=== PATIENT | male | born 1945 | race Caucasian/White ===

== ENCOUNTER 2016-10-21 08:53 | Outpatient (CLI) | payer MEDICARE, OTHER ==
--- NOTE | 2016-10-21 14:29 | MRI Report ---
EXAM: LEFT KNEE MRI WITHOUT CONTRAST EXAM DATE: 10/21/2016 10:54 AM. CLINICAL HISTORY: Left knee pain for 6-8 months COMPARISON: 02/16/2012 radiograph. TECHNIQUE: Multiplanar, multisequence T1-weighted and fluid-sensitive sequences of the knee without c ontrast. Other: None. FINDINGS: Bones: No fractures. Periarticular marrow edema in the trochlea is reactive. Mild tricompartmental os teophytes are seen.. Articular Cartilage: Severe cartilage loss is seen at the medial patellar facet. Focal cartilage demo nstrates severe thinning and surface irregularity. There is severe cartilage loss in the weightbearin g surfaces of the medial compartment. Moderate cartilage thinning is in the lateral compartment. Medial Meniscus: The posterior horn of the medial meniscus is small in size and quite deficient near the posterior root. There is evidence of a high-grade radial tear at that location. Lateral Meniscus: The lateral meniscus is intact. Cruciate Ligaments: The anterior cruciate ligament demonstrates intercondylar notch cyst formation. T he posterior cruciate ligament is intact. Collateral Ligaments: The medial collateral and lateral collateral ligamentous structures are intact. Tendons: The quadriceps, patellar, semimembranosus, and popliteus tendons are unremarkable. Musculature: No edema or fatty atrophy. Other: No effusion. A moderate-sized ruptured popliteal cyst is present. Two loose bodies are in the anterior joint space and both have signal intensity suggesting they may have arisen from a meniscal o rigin. They can be seen on series 501/10 and series 501/15. The largest measures 8 mm. The medial an d lateral retinacula are intact. Prepatellar subcutaneous edema seen.. IMPRESSION: 1. Moderate osteoarthritis. 2. Tearing of the posterior horn of the medial meniscus. 3. Intercondylar notch cyst formation in the anterior cruciate ligament. 4. Loose bodies in the anterior joint space. RADI MUSCULOSKELETAL RADIOLOGY SECTION Referring Provider Line: [phone] SITE ID: [id number]
== END 2016-10-21 08:54 | disposition home or self-care (01) ==
LOC: DI 08:53
PROVIDERS: ATTEND Family Medicine
DX: M17.12 Unilateral primary osteoarthritis, left knee (principal); S83.242A Other tear of medial meniscus, current injury, left knee, initial encounter

== ENCOUNTER 2017-04-06 11:19 | Outpatient (CLI) | payer MEDICARE, OTHER ==
--- NOTE | 2017-04-06 12:53 | XRAY Report ---
TWO-VIEW CHEST: 04/06/2017 CLINICAL INDICATION: Night sweats. COMPARISON: 03/18/2014 FINDINGS: Frontal and lateral views of the chest demonstrate a normal cardiac silhouette. The lungs are hyperinflated, compatible with COPD. No focal consolidation or pulmonary nodule is seen. No ef fusion or pneumothorax is present. IMPRESSION: COPD. NO EVIDENCE OF ACUTE CARDIOPULMONARY DISEASE. JOB #: [id number] EXT JOB #:[id number]
== END 2017-04-06 11:20 | disposition home or self-care (01) ==
LOC: DI 11:19
PROVIDERS: ATTEND Family Medicine
DX: J44.9 Chronic obstructive pulmonary disease, unspecified (principal)
CPT/HCPCS: 71020

== ENCOUNTER 2017-04-12 10:35 | Outpatient (CLI) | payer MEDICARE, OTHER ==
--- NOTE | 2017-04-12 12:49 | XRAY Report ---
RIGHT HIP AND PELVIS: 04/12/2017 CLINICAL INDICATION: Right hip pain. FINDINGS: Frontal view of the hips and pelvis and frogleg lateral view of the right hip demonstrate moderate osteoarthritis. There is no evidence of acute fracture or dislocation. No radiopaque forei gn body is seen in the soft tissues. IMPRESSION: MODERATE OSTEOARTHRITIS. JOB #: [id number] EXT JOB #:[id number]
== END 2017-04-12 10:36 | disposition home or self-care (01) ==
LOC: DI 10:35
PROVIDERS: ATTEND Physician Assistant Medical
DX: M16.11 Unilateral primary osteoarthritis, right hip (principal)

== ENCOUNTER 2017-06-21 08:35 | Outpatient (CLI) | payer MEDICARE, OTHER ==
[2017-06-21 12:31] LABS: BASOPHILS % (AUTO) 0.5 %; EOSINOPHILS # (AUTO) 0.1 10^3/uL (0.0-0.7); EOSINOPHILS % (AUTO) 1.8 %; HGB - HEMOGLOBIN 14.1 g/dL (14.0-18.0); LYMPHOCYTES % (AUTO) 21.6 %; MEAN CORPUSCULAR HEMOGLOBIN 35.2 pg (27.0-31.0); MEAN CORPUSCULAR HGB CONC 35.2 g/dL (32.0-36.0); MEAN PLATELET VOLUME 6.9 fL (7.4-11.4); MONOCYTES # (AUTO) 0.5 10^3/uL (0.0-1.0); MONOCYTES % (AUTO) 10.5 %; NEUTROPHILS # (AUTO) 3.1 10^3/uL (1.5-6.6); NEUTROPHILS % (AUTO) 65.6 %; PLT - PLATELET COUNT 219 10^3/uL (130-450); RED BLOOD COUNT 3.99 10^6/uL (4.70-6.10); RED CELL DISTRIBUTION WIDTH 13.3 % (12.0-15.0); WHITE BLOOD COUNT 4.7 x10^3/uL (4.8-10.8)
[2017-06-21 13:29] LABS: ALBUMIN 4.1 g/dL (3.2-5.5); ALBUMIN/GLOBULIN RATIO 1.5 (1.0-2.2); BILIRUBIN,TOTAL 0.6 mg/dL (0.2-1.0); CALCIUM 8.7 mg/dL (8.5-10.3); CREATININE 0.7 mg/dL (0.6-1.2); TOTAL PROTEIN 6.8 g/dL (6.7-8.2)
== END 2017-06-21 08:36 | disposition home or self-care (01) ==
LOC: LAB.WCP 08:35
PROVIDERS: ATTEND Family Medicine
DX: Z00.00 Encounter for general adult medical examination without abnormal findings (principal); M16.11 Unilateral primary osteoarthritis, right hip; I10 Essential (primary) hypertension; R73.9 Hyperglycemia, unspecified
CPT/HCPCS: 36415; 80053; 85025; 87640

== ENCOUNTER 2017-07-17 10:53 | Outpatient (CLI) | payer MEDICARE, OTHER ==
--- NOTE | 2017-07-18 15:12 | OPERATIVE REPORT ---
DATE OF SERVICE: 07/18/2017 Physician: Sayda Ulloa MD PREOPERATIVE DIAGNOSIS: Right hip osteoarthritis. POSTOPERATIVE DIAGNOSIS: Right hip osteoarthritis. PROCEDURE PERFORMED: Anterior approach right total hip arthroplasty. OPERATING SURGEON: Sayda Ulloa MD ANESTHESIA: General by Katelyn Carlos INDICATIONS FOR SURGERY: The patient is a 71-year-old male with progressive severe osteoarthritis of his right hip, who has failed a nonoperative course of management including injections, limitation of activity, anti-inflammatory medications with minimal relief and he now desires total hip arthroplasty. DESCRIPTION OF OPERATIVE PROCEDURE: The patient was admitted. He was taken to the operating room and placed supine on the OR table and received a general anesthetic. His hips were properly prepped and draped in standard fashion. Surgical timeout was held. After this, an anterior approach was made to the right hip with an 8 cm incision directed lateral to the anterior superior iliac spine towards the femur. This incision was taken down through skin and subcutaneous tissue exposing fascia overlying the tensor fascia. This interval was developed medial to the tensor muscle and developed directly down to the femoral capsule. The rectus femoris was reflected off the acetabulum and the capsule exposed and a capsulectomy performed from the anterior femur. Retractors were then positioned on the intracapsular aspect of the hip allowing exposure of the femoral neck for a napkin ring osteotomy to remove a segment and allow direct exposure of the femoral head, which was removed with a corkscrew. The cup was then exposed with retractors and reaming performed up to accommodate a 54 mm cup size. This cup was inserted into the acetabulum in a proper orientation for abduction and version and was well fixed even without screw fixation. The poly was inserted, standard vitamin E poly, followed by preparation of the femur by appropriate releases to drive the femur anteriorly, a re-resection of the proximal femur to a more anatomic angle, and then once exposure was gained with the foot of the bed lowered and retractors in place, a canal finder was used followed by serial broaching up to accommodate a size 15 Taperloc stem. Trial reduction was performed on this and a +6 neck length restored limb lengths, stability, and muscle tension. The trial components were removed. The femur was irrigated and flushed. The implantable size 15 Taperloc stem standard was inserted, followed by a +6 mm head size 40 and reduced into the cup, once again proving to be stable and showing equalization of limb lengths. The hip was then flushed thoroughly with irrigation including dilute Betadine solution, followed by a recleansing with saline. Deep infiltration was performed with a cocktail of pain medication followed by closure with #1 Vicryl in the fascia over the tensor followed by 0 and 2-0 Vicryl subcutaneous and 4-0 Monocryl in skin. Sterile dressings were applied. The patient tolerated this well and was then transferred to hospital bed and taken to the recovery room in stable condition. ESTIMATED BLOOD LOSS: 250 mL COMPLICATIONS: None. SPONGE AND NEEDLE COUNTS: Correct. IMPLANTS USED IN SURGERY: A size 15 standard Taperloc stem, a 40 mm +6 head and neck, and a G7 acetabular cup size 54 with a vitamin E infused high density polyethylene liner. TD: 07/18/2017 15:12
== END 2017-07-17 10:54 | disposition home or self-care (01) ==
LOC: LAB 10:53
PROVIDERS: ATTEND Orthopaedic Surgery
DX: Z01.812 Encounter for preprocedural laboratory examination (principal); M16.11 Unilateral primary osteoarthritis, right hip
CPT/HCPCS: 36415; 86850; 86900; 86901

== ENCOUNTER 2017-07-18 07:30 | Inpatient (IN) | payer MEDICARE, OTHER ==
[2017-07-18] MEDS ORDERED: ceFAZolin 2 GM/50 ML 2 GM/50 ML BAG IV ONE (09:42)
[2017-07-18] MEDS ORDERED: LACTATED RINGERS 1,000 ML IV ONE (10:58)
[2017-07-18] MEDS ORDERED: KETOROLAC 15 MG/ML VIAL IVP ONE (13:04)
[2017-07-18] MEDS ORDERED: ROPIVACAINE 0.2% PF 20 ML AMPULE SUBQ ONE (13:04)
[2017-07-18] MEDS ORDERED: MORPHINE PF 5 MG/10 ML AMP SUBQ ONE (13:04)
[2017-07-18] MEDS ORDERED: EPINEPHrine 1 MG/ML AMP IVP ONE (13:06)
[2017-07-18] MEDS ORDERED: LIDOCAINE 1%-EPI 1:100000 20 ML MDV SUBQ ONE (13:06)
[2017-07-18] MEDS ORDERED: BUPIVACAINE 0.25% PF 30 ML VIAL SUBQ ONE ×3 (13:08)
[2017-07-18] MEDS ORDERED: LIDOCAINE MPF 1%-EPI 1:200000 30 ML VIAL SUBQ ONE ×2 (13:08)
--- NOTE | 2017-07-18 14:12 | PROVIDER PROGRESS NOTE ---
Subjective - General Admit Date: 07/18/17 Procedure Date: 07/18/17 Post Op Days: 0 Objective - Patient Data Vital Signs: Vital Signs x48h Temp Pulse Resp BP Pulse Ox 07/18/17 10:36 36.4 C L 60 16 143/88 H 96 Weight: Weight 07/16/17 07/17/17 07/18/17 23:59 23:59 23:59 Weight (kg) 106 kg Impression/Plan - Problem List Problem List: This patient is expected to be hospitalized less than 96 Hours.
--- NOTE | 2017-07-18 14:12 | OPERATIVE REPORT ---
Operative Report - General Admit Date: 07/18/17 Procedure Date: 07/18/17 Planned Procedure: right hip DJD Pre-Op Diagnosis: same Procedure Performed: right CHRISTOPHER Post Op Diagnosis: same - Procedure Note Primary Surgeon: fidel Anesthesia Provider: Terrance Anesthesia Technique: General ET tube Estimated Blood Loss (mL): 300
[2017-07-18] MEDS ORDERED: PROCHLORPERAZINE 10 MG/2 ML VIAL IVP PRN (14:14)
[2017-07-18] MEDS ORDERED: ACETAMINOPHEN 325 MG TABLET PO PRN (14:14)
[2017-07-18] MEDS ORDERED: SENNA 8.6 MG TABLET PO PRN (14:14)
[2017-07-18] MEDS ORDERED: ACETAMINOPHEN 1,000 MG/100 ML 100 ML IV PRN (14:14)
[2017-07-18] MEDS ORDERED: SODIUM CHLORIDE FLUSH 0.9% 10 ML SYRINGE IVP PRN (14:14)
[2017-07-18] MEDS ORDERED: ONDANSETRON 4 MG/2 ML VIAL IVP PRN (14:14)
[2017-07-18] MEDS ORDERED: BISACODYL 10 MG SUPP PR PRN (14:14)
[2017-07-18] MEDS: HYDROmorphone 1 MG/ML SYRINGE ONE ×4 (14:15→14:54)
[2017-07-18] MEDS: fentaNYL 100 MCG/2 ML VIAL ONE ×2 (14:15→14:25)
[2017-07-18] MEDS ORDERED: MORPHINE PCA 50 MG IV PRN (14:19)
[2017-07-18] MEDS ORDERED: HYDROmorphone 1 MG/ML SYRINGE ONE (14:33)
--- NOTE | 2017-07-18 15:12 | OPERATIVE REPORT ---
DATE OF SERVICE: 07/18/2017 Physician: Sayda Ulloa MD PREOPERATIVE DIAGNOSIS: Right hip osteoarthritis. POSTOPERATIVE DIAGNOSIS: Right hip osteoarthritis. PROCEDURE PERFORMED: Anterior approach right total hip arthroplasty. OPERATING SURGEON: Sayda Ulloa MD ANESTHESIA: General by Katelyn Carlos INDICATIONS FOR SURGERY: The patient is a 71-year-old male with progressive severe osteoarthritis of his right hip, who has failed a nonoperative course of management including injections, limitation of activity, anti-inflammatory medications with minimal relief and he now desires total hip arthroplasty. DESCRIPTION OF OPERATIVE PROCEDURE: The patient was admitted. He was taken to the operating room and placed supine on the OR table and received a general anesthetic. His hips were properly prepped and draped in standard fashion. Surgical timeout was held. After this, an anterior approach was made to the right hip with an 8 cm incision directed lateral to the anterior superior iliac spine towards the femur. This incision was taken down through skin and subcutaneous tissue exposing fascia overlying the tensor fascia. This interval was developed medial to the tensor muscle and developed directly down to the femoral capsule. The rectus femoris was reflected off the acetabulum and the capsule exposed and a capsulectomy performed from the anterior femur. Retractors were then positioned on the intracapsular aspect of the hip allowing exposure of the femoral neck for a napkin ring osteotomy to remove a segment and allow direct exposure of the femoral head, which was removed with a corkscrew. The cup was then exposed with retractors and reaming performed up to accommodate a 54 mm cup size. This cup was inserted into the acetabulum in a proper orientation for abduction and version and was well fixed even without screw fixation. The poly was inserted, standard vitamin E poly, followed by preparation of the femur by appropriate releases to drive the femur anteriorly, a re-resection of the proximal femur to a more anatomic angle, and then once exposure was gained with the foot of the bed lowered and retractors in place, a canal finder was used followed by serial broaching up to accommodate a size 15 Taperloc stem. Trial reduction was performed on this and a +6 neck length restored limb lengths, stability, and muscle tension. The trial components were removed. The femur was irrigated and flushed. The implantable size 15 Taperloc stem standard was inserted, followed by a +6 mm head size 40 and reduced into the cup, once again proving to be stable and showing equalization of limb lengths. The hip was then flushed thoroughly with irrigation including dilute Betadine solution, followed by a recleansing with saline. Deep infiltration was performed with a cocktail of pain medication followed by closure with #1 Vicryl in the fascia over the tensor followed by 0 and 2-0 Vicryl subcutaneous and 4-0 Monocryl in skin. Sterile dressings were applied. The patient tolerated this well and was then transferred to hospital bed and taken to the recovery room in stable condition. ESTIMATED BLOOD LOSS: 250 mL COMPLICATIONS: None. SPONGE AND NEEDLE COUNTS: Correct. IMPLANTS USED IN SURGERY: A size 15 standard Taperloc stem, a 40 mm +6 head and neck, and a G7 acetabular cup size 54 with a vitamin E infused high density polyethylene liner. TD: 07/18/2017 15:12
--- NOTE | 2017-07-18 18:08 | XRAY Report ---
RIGHT HIP AND PELVIS: 07/18/2017 CLINICAL INDICATION: Postop. FINDINGS: Frontal view of the right hip and a portion of the pelvis and crosstable lateral view of the right hip were obtained. There is a new right hip replacement in place. Subcutaneous gas is noted. There is no evidence of fracture or hardware complication. IMPRESSION: EXPECTED POSTOPERATIVE APPEARANCE OF RIGHT HIP REPLACEMENT. TD: 07/18/2017 18:07
[2017-07-18] MEDS: SODIUM CHLORIDE 0.45% 1,000 ML IV SCH (20:15)
[2017-07-18] MEDS: ceFAZolin 2 GM/50 ML 2 GM/50 ML BAG IV SCH (20:16)
[2017-07-18] MEDS: traZODone 50 MG TABLET PO SCH (21:42)
[2017-07-18] MEDS: TAMSULOSIN 0.4 MG CAPSULE PO SCH (21:43)
[2017-07-18] MEDS: HYDROcod/ACETAM 7.5 MG/325 MG TABLET PO SCH (21:43)
[2017-07-19] MEDS: SODIUM CHLORIDE FLUSH 0.9% 10 ML SYRINGE IVP SCH ×4 (01:04→21:30)
[2017-07-19] MEDS: ceFAZolin 2 GM/50 ML 2 GM/50 ML BAG IV SCH (03:58)
[2017-07-19 05:54] LABS: CALCIUM 8.3 mg/dL (8.5-10.3); CREATININE 0.6 mg/dL (0.6-1.2)
[2017-07-19 06:03] LABS: HGB - HEMOGLOBIN 11.8 g/dL (14.0-18.0)
[2017-07-19] MEDS: PANTOPRAZOLE 40 MG TABLET PO SCH (06:12)
[2017-07-19] MEDS: SODIUM CHLORIDE 0.45% 1,000 ML IV SCH (07:47)
[2017-07-19] MEDS: CITALOPRAM 10 MG TABLET PO SCH (08:33)
[2017-07-19] MEDS: HYDROcod/ACETAM 7.5 MG/325 MG TABLET PO SCH ×2 (08:33→14:08)
[2017-07-19] MEDS: LISINOPRIL 20 MG TABLET PO SCH (08:33)
[2017-07-19] MEDS: MULTIVITAMIN TABLET PO SCH (08:33)
--- NOTE | 2017-07-19 09:23 | PROVIDER PROGRESS NOTE ---
Subjective - General Admit Date: 07/18/17 Procedure Date: 07/18/17 Post Op Days: 1 Procedure Performed: right minoo - Review of Systems Wound/Incisions: positive: Dressing dry and intact Gastrointestinal: positive: Constipation Musculoskeletal: positive: Joint pain Objective - Patient Data Reviewed Vital Signs: Yes Vital Signs: Vital Signs x48h Temp Pulse Resp BP Pulse Ox 07/19/17 07:40 37.4 C 72 22 128/78 96 07/19/17 04:45 37.0 C 70 16 121/70 98 07/19/17 02:00 16 Weight: Weight 07/17/17 07/18/17 07/19/17 23:59 23:59 23:59 Weight (kg) 106 kg Intake & Output: Intake and Output Totals x24h 07/17/17 07/18/17 07/19/17 23:59 23:59 23:59 Intake Total 750 1510 Output Total 400 1900 Balance 350 -390 - Lab Results Lab Results: 07/19/17 05:37 07/19/17 05:05 Other Lab Results: Lab Results x24hrs 07/19/17 07/19/17 Range/Units 05:37 05:05 Hgb 11.8 L (14.0-18.0) g/dL Hct 34.6 L (42.0-52.0) % Sodium 134 L (135-145) mmol/L Potassium 3.9 (3.5-5.0) mmol/L Chloride 105 (101-111) mmol/L Carbon Dioxide 23 (21-32) mmol/L Anion Gap 6.0 (6-13) BUN 13 (6-20) mg/dL Creatinine 0.6 (0.6-1.2) mg/dL Estimated GFR (MDRD) 133 (>89) Glucose 118 H (70-100) mg/dL Calcium 8.3 L (8.5-10.3) mg/dL - Imaging Results Radiology Imaging: positive: EMP read indepedently - Current Medications Current Medications: Current Medications Generic Name Dose Route Start Last Admin Trade Name Freq PRN Reason Stop Dose Admin Acetaminophen/Hydrocodone Bitart 1 tab 07/18/17 21:00 07/19/17 08:33 [place] 7.5/325 PO 1 tab BID MALIA Administration Citalopram Hydrobromide 20 mg 07/19/17 09:00 07/19/17 08:33 Celexa PO 20 mg DAILY MALIA Administration Sodium Chloride 1,000 mls @ 100 mls/hr 07/18/17 15:00 07/19/17 07:47 Normal Saline 0.45% IV 100 mls/hr .Q10H MALIA Administration Lisinopril 20 mg 07/19/17 09:00 07/19/17 08:33 Zestril PO 20 mg DAILY MALIA Administration Morphine Sulfate/Sodium Chloride 0 mg 07/18/17 14:19 07/18/17 16:52 Morphine Lens Grinding Machine Operator (Use Lens Grinding Machine Operator Order Set) IV 50 mg MOBILE THERAPIST PRN Administration PAIN Protocol Multivitamins 1 tab 07/19/17 08:00 07/19/17 08:33 Theragran PO 1 tab DAILYWM MALIA Administration Pantoprazole Sodium 40 mg 07/19/17 07:00 07/19/17 06:12 Protonix PO 40 mg QDAC MALIA Administration Sodium Chloride 10 ml 07/18/17 22:00 07/19/17 04:13 Normal Saline Flush 0.9% IVP Not Given Q8HR MALIA Tamsulosin HCl 0.4 mg 07/18/17 21:00 07/18/17 21:43 Flomax PO 0.4 mg QPM MALIA Administration Trazodone HCl 100 mg 07/18/17 21:00 07/18/17 21:42 Desyrel PO 100 mg QPM MALIA Administration - Physical Exam Wound/Incisions: positive: Healing well Skin: positive: Warm, Dry Extremities: positive: Joint swelling Neurologic/Psychiatric: positive: Motor nml, Sensation nml, Mood/affect nml Impression/Plan - Problem List Problem List: POD #1 Pt is doing well with Routine care. Will continue with PT. rehab.
[2017-07-19] MEDS: ASPIRIN EC 325 MG TABLET PO SCH ×2 (11:56→20:17)
[2017-07-19] MEDS ORDERED: MORPHINE 2 MG/ML CARPUJECT IVP PRN (14:44)
[2017-07-19] MEDS: HYDROcod/ACETAM 7.5 MG/325 MG TABLET PO PRN ×2 (16:14→20:17)
[2017-07-19] MEDS: traZODone 50 MG TABLET PO SCH (20:17)
[2017-07-19] MEDS: TAMSULOSIN 0.4 MG CAPSULE PO SCH (20:17)
[2017-07-20] MEDS: HYDROcod/ACETAM 7.5 MG/325 MG TABLET PO PRN ×2 (00:37→06:19)
[2017-07-20 06:13] LABS: CALCIUM 8.3 mg/dL (8.5-10.3); CREATININE 0.6 mg/dL (0.6-1.2)
[2017-07-20] MEDS: PANTOPRAZOLE 40 MG TABLET PO SCH (06:19)
[2017-07-20] MEDS: SODIUM CHLORIDE FLUSH 0.9% 10 ML SYRINGE IVP SCH (06:19)
[2017-07-20 06:24] LABS: HGB - HEMOGLOBIN 11.7 g/dL (14.0-18.0)
[2017-07-20 07:49] VITALS: BP 129/66
[2017-07-20] MEDS: CITALOPRAM 10 MG TABLET PO SCH (09:31)
[2017-07-20] MEDS: MULTIVITAMIN TABLET PO SCH (09:32)
[2017-07-20] MEDS: ASPIRIN EC 325 MG TABLET PO SCH (09:32)
[2017-07-20] MEDS: LISINOPRIL 20 MG TABLET PO SCH (09:32)
--- NOTE | 2017-07-20 10:38 | PROVIDER PROGRESS NOTE ---
Subjective - General Admit Date: 07/18/17 Procedure Date: 07/18/17 Post Op Days: 2 Procedure Performed: right minoo - Review of Systems Wound/Incisions: positive: Healing well Gastrointestinal: positive: No symptoms Musculoskeletal: positive: Joint pain Psychiatric: positive: No symptoms Objective - Patient Data Reviewed Vital Signs: Yes Vital Signs: Vital Signs x48h Temp Pulse Resp BP Pulse Ox 07/20/17 07:49 37.1 C 69 18 129/66 94 Weight: Weight 07/18/17 07/19/17 07/20/17 23:59 23:59 23:59 Weight (kg) 106 kg Intake & Output: Intake and Output Totals x24h 07/18/17 07/19/17 07/20/17 23:59 23:59 23:59 Intake Total 750 3316 1030 Output Total 400 2625 1625 Balance 350 691 -595 - Lab Results Lab Results: 07/20/17 05:39 07/20/17 05:39 Other Lab Results: Lab Results x24hrs 07/20/17 07/20/17 Range/Units 05:39 05:39 Hgb 11.7 L (14.0-18.0) g/dL Hct 34.2 L (42.0-52.0) % Sodium 135 (135-145) mmol/L Potassium 3.8 (3.5-5.0) mmol/L Chloride 105 (101-111) mmol/L Carbon Dioxide 25 (21-32) mmol/L Anion Gap 5.0 L (6-13) BUN 13 (6-20) mg/dL Creatinine 0.6 (0.6-1.2) mg/dL Estimated GFR (MDRD) 133 (>89) Glucose 107 H (70-100) mg/dL Calcium 8.3 L (8.5-10.3) mg/dL - Current Medications Current Medications: Current Medications Generic Name Dose Route Start Last Admin Trade Name Freq PRN Reason Stop Dose Admin Acetaminophen/Hydrocodone Bitart 1 tab 07/19/17 14:43 07/20/17 06:19 [place] 7.5/325 PO 07/22/17 14:40 1 tab Q4HR PRN Administration PAIN Aspirin 325 mg 07/19/17 10:00 07/20/17 09:32 Ecotrin PO 325 mg BID MALIA Administration Citalopram Hydrobromide 20 mg 02/21/18 09:00 07/20/17 09:31 Celexa PO 20 mg DAILY MALIA Administration Acetaminophen 100 mls @ 400 mls/hr 07/18/17 14:14 07/20/17 09:47 Ofirmev IV 400 mls/hr Q6HR PRN Administration PAIN Lisinopril 20 mg 07/19/17 09:00 07/20/17 09:32 Zestril PO 20 mg DAILY MALIA Administration Morphine Sulfate 2 mg 07/19/17 14:44 07/20/17 03:27 Morphine (Carpuject) IVP 2 mg Q2HR PRN Administration PAIN Multivitamins 1 tab 07/19/17 08:00 07/20/17 09:32 Theragran PO 1 tab DAILYWM MALIA Administration Pantoprazole Sodium 40 mg 07/19/17 07:00 07/20/17 06:19 Protonix PO 40 mg QDAC MALIA Administration Senna 17.2 mg 07/18/17 14:14 07/20/17 09:46 Senokot PO 17.2 mg Q12H PRN Administration Constipation Sodium Chloride 10 ml 07/18/17 22:00 07/20/17 06:19 Normal Saline Flush 0.9% IVP 10 ml Q8HR MALIA Administration Tamsulosin HCl 0.4 mg 07/18/17 21:00 07/19/17 20:17 Flomax PO 0.4 mg QPM MALIA Administration Trazodone HCl 100 mg 07/18/17 21:00 07/19/17 20:17 Desyrel PO 100 mg QPM MALIA Administration - Physical Exam Wound/Incisions: positive: Healing well General Appearance: positive: No acute distress Skin: positive: Warm, Dry Extremities: positive: Joint swelling Neurologic/Psychiatric: positive: Motor nml, Sensation nml, Mood/affect nml Impression/Plan - Problem List Problem List: POD #2 Pt is alert, and comfortable. He would like to go home. Plan for f/u next week. instructions given and dressing changed.
--- NOTE | 2017-07-20 11:16 | Discharge Plan ---
Discharge Plan Disposition: Home, Self Care Condition: Good Prescriptions: HYDROcodone/ACET 7.5/325 [[place] 7.5/325] 1 tab PO Q4HR PRN #60 tablet PRN Reason: Pain Aspirin EC [Ecotrin] 325 mg PO BID #60 tablet Diet: Regular Activity Restrictions: Wt Bearing as Tolerated Shower Restrictions: Yes (cover dressing) Driving Restrictions: Yes (no driving) Assistance Devices: Walker Weight Bearing: Full Weight No Smoking: If you smoke, Please STOP! Call for help. Follow-up with: Emmanuel Rodriguez MD [Primary Care Provider] - Sayda Ulloa MD [Provider Admit Priv/Credential] -
[2017-07-20] MEDS ORDERED: GLYCOPYRROLATE 1 MG/5 ML VIAL IVP ONE (12:30)
[2017-07-20] MEDS ORDERED: fentaNYL 100 MCG/2 ML VIAL IVP ONE (12:30)
[2017-07-20] MEDS ORDERED: PROPOFOL 200 MG/20 ML VIAL IVP ONE (12:30)
[2017-07-20] MEDS ORDERED: DEXAMETHASONE 4 MG/ML VIAL IVP ONE (12:30)
[2017-07-20] MEDS ORDERED: ACETAMINOPHEN 1,000 MG/100 ML 100 ML IV ONE (12:30)
[2017-07-20] MEDS ORDERED: TRANEXAMIC ACID 1,000 MG/10 ML VIAL IV ONE (12:30)
[2017-07-20] MEDS ORDERED: LIDOCAINE-MPF 2% 5 ML VIAL IM ONE (12:30)
[2017-07-20] MEDS ORDERED: NEOSTIGMINE 1 MG/1 ML 10 ML MDV IVP ONE (12:30)
[2017-07-20] MEDS ORDERED: MIDAZOLAM 2 MG/2 ML VIAL IVP ONE (12:30)
--- NOTE | 2017-07-27 19:01 | DISCHARGE SUMMARY ---
Physician: Sayda Ulloa MD DATE OF ADMISSION: 07/18/2017 DATE OF DISCHARGE: 07/20/2017 ADMISSION DIAGNOSIS: Right hip osteoarthritis. OPERATIVE PROCEDURE PERFORMED 07/18/2017 a right total hip arthroplasty. REASON FOR ADMISSION: The patient is a 71-year-old male with increasing severe osteoarthritis of his right hip with functional limitations in ambulation and poor pain management utilizing multiple methods that have failed. Recommendation now is for hip replacement arthroplasty. HOSPITAL COURSE: The patient was admitted on 07/18/2017 for elective right total hip arthroplasty. The patient underwent surgery and postoperatively was returned to the medical/surgical floor entering into a standard care post total hip arthroplasty including IV hydration, pain medication and management, early physical therapy, mobilization, DVT prophylaxis. The patient did very well in the postoperative period. On the date of discharge on 07/20/2017, the patient was comfortable on oral medications. He was independent getting out of bed and to the bathroom. He was able to put weightbearing onto his extremity without difficulty and he was showing uneventful wound healing. At this point, the patient was discharged to home with instructions given for care after surgery and with an appointment to be seen in the office within a week. His dressing was to be left in place. He was to use oral Lortab for pain management and aspirin for DVT prophylaxis. TD: 07/27/2017 19:00
== END 2017-07-20 13:08 | disposition home or self-care (01) | DRG 470 ==
LOC: MS3 10:01 → MS2 10:26
PROVIDERS: ADMIT Orthopaedic Surgery; ATTEND Orthopaedic Surgery
PROC: 0SR902Z Replacement of Right Hip Joint with Metal on Polyethylene Synthetic Substitute, Open Approach (ICD-10-PCS; principal; 2017-07-18 11:15)
DX: M16.11 Unilateral primary osteoarthritis, right hip (principal); I10 Essential (primary) hypertension; Z87.891 Personal history of nicotine dependence; Z72.89 Other problems related to lifestyle
CPT/HCPCS: 36415; 80048; 85014; 85018

== ENCOUNTER 2017-10-10 08:00 | Outpatient (CLI) | payer MEDICARE, OTHER | END 2017-10-10 08:01 | LOC: LAB.WCP 08:00 | PROVIDERS: ATTEND Family Medicine | DX: R68.82 Decreased libido (principal) | CPT/HCPCS: 36415; 84403 ==

== ENCOUNTER 2017-10-19 08:05 | Day surgery (SDC) | payer MEDICARE, OTHER ==
[~2017-10-19 08:05] MED LIST: BUPIVACAINE 0.25% PF 30 ML VIAL ONE; LIDOCAINE 1%-EPI 1:100000 30 ML MDV ONE
[2017-10-19] MEDS ORDERED: LACTATED RINGERS 1,000 ML IV ONE (08:29)
[2017-10-19] MEDS ORDERED: LIDOCAINE 1%-EPI 1:100000 20 ML MDV SUBQ ONE ×2 (09:53)
[2017-10-19] MEDS ORDERED: PROPOFOL 200 MG/20 ML VIAL IVP ONE (10:00)
[2017-10-19] MEDS ORDERED: MIDAZOLAM 2 MG/2 ML VIAL IVP ONE (10:00)
[2017-10-19 10:30] VITALS: BP 128/75
--- NOTE | 2017-10-19 10:41 | OPERATIVE REPORT ---
DATE OF SERVICE: 10/19/2017 Physician: Sayda Ulloa MD PREOPERATIVE DIAGNOSIS: Right carpal tunnel syndrome. PROCEDURE PERFORMED: Right carpal tunnel release. OPERATING SURGEON: Sayda Ulloa M.D. ANESTHESIA: MAC and local, Katelyn Carlos. INDICATIONS FOR SURGERY: Chris is a 72-year-old with chronic carpal tunnel syndrome in his right hand. He has had a previous left carpal tunnel release and has done very well with that. He desires the same for his right hand. OPERATIVE PROCEDURE: The patient was taken to the operating room. He was given IV sedation. His right hand and wrist were sterilely prepped and draped in standard fashion. His volar radius was marked with a marking pen for a 2 cm incision in the palm in line with the third webspace and the incision was then undertaken after infiltration of the area in the carpal tunnel with 1% lidocaine with epinephrine and 0.25% Marcaine mixed, approximately 8 mL total were used. The incision was taken through skin and subcutaneous tissue, exposing transverse carpal ligament, which was divided in line with the incision. The dissection ended at the superficial arch distally and the proximal extent was at the distal wrist flexion crease. Once decompressed, the area was irrigated, inspection was made for any other abnormalities, which were none, and the closure was with interrupted 4-0 nylon in skin. Sterile dressings were applied and a soft wrap and the patient was taken to recovery room in stable condition. ESTIMATED BLOOD LOSS: Minimal. COMPLICATIONS: None. COUNTS: Sponge and needle counts correct. TD: 10/19/2017 10:27
== END 2017-10-19 08:06 | disposition home or self-care (01) ==
LOC: SDS 08:05
PROVIDERS: ATTEND Orthopaedic Surgery
PROC: 01N50ZZ Release Median Nerve, Open Approach (ICD-10-PCS; principal; 2017-10-19 09:15)
DX: G56.01 Carpal tunnel syndrome, right upper limb (principal); I10 Essential (primary) hypertension; Z79.82 Long term (current) use of aspirin; K21.9 Gastro-esophageal reflux disease without esophagitis
CPT/HCPCS: 64721; J7120

== ENCOUNTER 2019-10-03 10:00 | Outpatient (CLI) | payer MEDICARE, OTHER | END 2019-10-03 23:59 | disposition home or self-care (01) | LOC: LAB.R 10:00 | PROVIDERS: ATTEND Family Medicine | DX: L08.9 Local infection of the skin and subcutaneous tissue, unspecified (principal) | CPT/HCPCS: 87070; 87077; 87181 ==

== ENCOUNTER 2019-10-28 11:40 | Outpatient (CLI) | payer MEDICARE, OTHER | END 2019-10-28 23:59 | disposition home or self-care (01) | LOC: LAB.R 11:40 | PROVIDERS: ATTEND Family Medicine | DX: Z11.59 Encounter for screening for other viral diseases (principal) | CPT/HCPCS: 81599 ==

== ENCOUNTER 2019-11-28 09:27 | Outpatient (CLI) | payer MEDICARE, OTHER ==
[2019-11-28 09:51] LABS: BASOPHILS % (AUTO) 0.4 %; EOSINOPHILS # (AUTO) 0.3 10^3/uL (0.0-0.7); EOSINOPHILS % (AUTO) 6.2 %; LYMPHOCYTES # (AUTO) 1.4 10^3/uL (1.5-3.5); LYMPHOCYTES % (AUTO) 29.4 %; MEAN CORPUSCULAR HEMOGLOBIN 32.2 pg (27.0-31.0); MEAN CORPUSCULAR HGB CONC 33.1 g/dL (32.0-36.0); MEAN CORPUSCULAR VOLUME 97.2 fL (80.0-94.0); MONOCYTES # (AUTO) 0.5 10^3/uL (0.0-1.0); MONOCYTES % (AUTO) 11.5 %; NEUTROPHILS # (AUTO) 2.5 10^3/uL (1.5-6.6); NEUTROPHILS % (AUTO) 52.1 %; PLT - PLATELET COUNT 214 10^3/uL (130-450); RED BLOOD COUNT 4.35 10^6/uL (4.70-6.10); RED CELL DISTRIBUTION WIDTH 13.9 % (12.0-15.0); WHITE BLOOD COUNT 4.7 x10^3/uL (4.8-10.8)
[2019-11-28 10:20] LABS: ALBUMIN 4.1 g/dL (3.2-5.5); ALBUMIN/GLOBULIN RATIO 1.4 (1.0-2.2); ALKALINE PHOSPHATASE 56 IU/L (42-121); ALT ALANINE AMINOTRANSFERASE 21 IU/L (10-60); AST ASPARTATE AMINOTRANSFERASE 17 IU/L (10-42); BILIRUBIN,TOTAL 0.6 mg/dL (0.2-1.0); BUN - BLOOD UREA NITROGEN 15 mg/dL (6-20); CALCIUM 9.2 mg/dL (8.5-10.3); CARBON DIOXIDE - CO2 27 mmol/L (21-32); CHLORIDE 98 mmol/L (101-111); CHOL/HDL RATIO 4.9 (<5.0); CHOLESTEROL 224 mg/dL; CREATININE 0.8 mg/dL (0.6-1.2); GLUCOSE 105 mg/dL (70-100); HDL CHOLESTEROL 46 mg/dL; LDL CHOLESTEROL,CALCULATED 150 mg/dL; LDL/HDL RATIO 3.3 (<3.6); SODIUM 135 mmol/L (135-145); VLDL CHOLESTEROL 28 mg/dL
[2019-11-28 11:05] LABS: PSA FREE 0.17 ng/mL (0.16-2.81)
[2019-11-28 11:06] LABS: PSA TOTAL 1.93 ng/mL (0.000-2.000)
== END 2019-11-28 09:28 | disposition home or self-care (01) ==
LOC: LAB 09:27
PROVIDERS: ATTEND Registered Nurse
DX: I10 Essential (primary) hypertension (principal); R73.9 Hyperglycemia, unspecified; E78.5 Hyperlipidemia, unspecified; N40.1 Benign prostatic hyperplasia with lower urinary tract symptoms
CPT/HCPCS: 36415; 80053; 80061; 83721; 84153; 84154; 84443; 85025

== ENCOUNTER 2019-12-04 12:45 | Outpatient (CLI) | payer MEDICARE, OTHER | END 2019-12-04 23:59 | disposition home or self-care (01) | LOC: LAB.R 12:45 | PROVIDERS: ATTEND Family Medicine | DX: G37.3 Acute transverse myelitis in demyelinating disease of central nervous system (principal) | CPT/HCPCS: 87070; 87181; 87205 ==

== ENCOUNTER 2020-01-03 14:15 | Outpatient (CLI) | payer MEDICARE, OTHER ==
[2020-01-03 15:02] LABS: CREATININE 0.6 mg/dL (0.6-1.2)
== END 2020-01-03 23:59 | disposition home or self-care (01) ==
LOC: LAB.R 14:15
PROVIDERS: ATTEND Psychiatry & Neurology Neurology
DX: G37.3 Acute transverse myelitis in demyelinating disease of central nervous system (principal)
CPT/HCPCS: 82565

== ENCOUNTER 2020-01-07 13:20 | Outpatient (CLI) | payer MEDICARE, OTHER ==
[2020-01-07 14:35] LABS: PSA FREE 0.17 ng/mL (0.16-2.81)
[2020-01-07 14:36] LABS: PSA TOTAL 1.54 ng/mL (0.000-2.000)
== END 2020-01-07 23:59 | disposition home or self-care (01) ==
LOC: LAB.R 13:20
PROVIDERS: ATTEND Registered Nurse
DX: I10 Essential (primary) hypertension (principal); R97.20 Elevated prostate specific antigen [PSA]
CPT/HCPCS: 84153; 84154

== ENCOUNTER 2020-03-16 08:00 | Outpatient (CLI) | payer MEDICARE, OTHER | END 2020-03-16 23:59 | LOC: LAB.R 08:00 | PROVIDERS: ATTEND Family Medicine | DX: L08.9 Local infection of the skin and subcutaneous tissue, unspecified (principal) | CPT/HCPCS: 87070; 87077; 87205 ==

== ENCOUNTER 2020-04-10 13:00 | Outpatient (CLI) | payer MEDICARE, OTHER | END 2020-04-10 23:59 | disposition home or self-care (01) | LOC: LAB.R 13:00 | PROVIDERS: ATTEND Family Medicine | DX: S81.802A Unspecified open wound, left lower leg, initial encounter (principal); L89.899 Pressure ulcer of other site, unspecified stage | CPT/HCPCS: 87070; 87205 ==

== ENCOUNTER → 2020-04-16 | Outpatient (CLI) | payer MEDICARE, OTHER | LOC: LAB.R 08:00 | PROVIDERS: ATTEND Family Medicine | DX: L89.899 Pressure ulcer of other site, unspecified stage (principal) | CPT/HCPCS: 87070; 87205 ==

== ENCOUNTER 2020-06-10 18:21 | Outpatient (CLI) | payer MEDICARE, OTHER | END 2020-06-10 18:22 | disposition EMS.NT | LOC: EMS 18:21 | PROVIDERS: ATTEND Surgery | DX: Z03.89 Encounter for observation for other suspected diseases and conditions ruled out (principal) ==

== ENCOUNTER 2020-07-01 13:34 | Outpatient (CLI) | payer MEDICARE, OTHER ==
[2020-07-01 20:57] LABS: CALCIUM 9.3 mg/dL (8.5-10.3); CREATININE 0.7 mg/dL (0.6-1.2)
== END 2020-07-01 13:35 | disposition home or self-care (01) ==
LOC: LAB.S 13:34
DX: E87.1 Hypo-osmolality and hyponatremia (principal); T50.905S Adverse effect of unspecified drugs, medicaments and biological substances, sequela
CPT/HCPCS: 36415; 80048

== ENCOUNTER 2020-07-31 11:59 | Outpatient (CLI) | payer MEDICARE, OTHER ==
[2020-07-31 15:40] LABS: CALCIUM 9.1 mg/dL (8.5-10.3); CREATININE 0.6 mg/dL (0.6-1.2); POTASSIUM 4.3 mmol/L (3.5-5.0)
== END 2020-07-31 12:00 | disposition home or self-care (01) ==
LOC: LAB.S 11:59
PROVIDERS: ATTEND Psychiatry & Neurology Neurology
DX: E87.1 Hypo-osmolality and hyponatremia (principal)
CPT/HCPCS: 36415; 80048

== ENCOUNTER 2020-09-02 13:04 | Outpatient (CLI) | payer MEDICARE, OTHER | END 2020-09-02 13:05 | disposition home or self-care (01) | LOC: COV 13:04 | PROVIDERS: ATTEND Psychiatry & Neurology Neurology | DX: Z01.812 Encounter for preprocedural laboratory examination (principal); R20.0 Anesthesia of skin; Z20.822 Contact with and (suspected) exposure to COVID-19 ==

== ENCOUNTER 2020-09-04 16:34 | Outpatient (CLI) | payer MEDICARE, OTHER ==
[2020-09-04 20:15] LABS: CREATININE 0.5 mg/dL (0.6-1.2); POTASSIUM 4.2 mmol/L (3.5-5.0)
== END 2020-09-04 16:35 | disposition home or self-care (01) ==
LOC: LAB.S 16:34
PROVIDERS: ATTEND Registered Nurse
DX: E87.1 Hypo-osmolality and hyponatremia (principal)
CPT/HCPCS: 36415; 80048

== ENCOUNTER 2020-12-31 13:42 | Outpatient (CLI) | payer MEDICARE, OTHER ==
[2020-12-31 14:10] LABS: CALCIUM 9.1 mg/dL (8.5-10.3); CREATININE 0.7 mg/dL (0.6-1.2)
== END 2020-12-31 13:43 | disposition home or self-care (01) ==
LOC: LAB 13:42
PROVIDERS: ATTEND Psychiatry & Neurology Neurology
DX: G37.3 Acute transverse myelitis in demyelinating disease of central nervous system (principal); E87.1 Hypo-osmolality and hyponatremia; R20.0 Anesthesia of skin; Z20.822 Contact with and (suspected) exposure to COVID-19
CPT/HCPCS: 36415; 80048; U0004

== ENCOUNTER 2021-03-07 19:00 | Outpatient (CLI) | payer MEDICARE, OTHER | END 2021-03-07 19:01 | disposition EMS.NT | LOC: EMS 19:00 | DX: I95.9 Hypotension, unspecified (principal) ==

== ENCOUNTER 2021-05-17 14:22 | Outpatient (CLI) | payer MEDICARE, OTHER ==
[2021-05-17 15:05] LABS: CALCIUM 8.8 mg/dL (8.5-10.3); CREATININE 0.6 mg/dL (0.6-1.2); POTASSIUM 4.2 mmol/L (3.5-5.0)
== END 2021-05-17 14:23 | disposition home or self-care (01) ==
LOC: LAB 14:22
PROVIDERS: ATTEND Psychiatry & Neurology Neurology
DX: E87.1 Hypo-osmolality and hyponatremia (principal)
CPT/HCPCS: 36415; 80048

== ENCOUNTER 2021-05-20 10:41 | Emergency (ER) | payer MEDICARE, OTHER ==
[2021-05-20] MEDS ORDERED: SODIUM CHLORIDE 0.9% 1,000 ML IV STA ×2 (11:16→13:35)
--- NOTE | 2021-05-20 11:34 | XRAY Report ---
PROCEDURE: Chest 1 View X-Ray INDICATIONS: chest pain TECHNIQUE: One view of the chest was acquired. COMPARISON: CXR 04/06/2017. FINDINGS: Surgical changes and devices: None. Lungs and pleura: No pleural effusions or pneumothorax. Lungs are clear. Mediastinum: Mediastinal contours appear unchanged. Heart size is normal. Bones and chest wall: No suspicious bony lesions. Overlying soft tissues appear unremarkable. IMPRESSION: No acute cardiopulmonary abnormality. Reviewed by: Boy Draper MD on 05/20/2021 11:33 AM [facility] Approved by: Boy Draper MD on 05/20/2021 11:33 AM [facility] Station ID: [id number]
--- NOTE | 2021-05-20 11:47 | ED Physician Documentation ---
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 He states that today he is not confused as he was last night but continues to feel weak. He usually uses a wheelchair motorized and he has a slider board that his is able to help him get in and out of bed with. He has not had a fever associated with this he has had some dyspnea similar to what he has with his COPD. Review of Systems Constitutional: denies: Fever Eyes: denies: Decreased vision Ears: denies: Ear pain Nose: denies: Congestion Throat: denies: Sore throat Cardiac: denies: Chest pain / pressure, Palpitations Respiratory: reports: Dyspnea. denies: Cough GI: denies: Abdominal Pain, Nausea, Vomiting, Constipation, Diarrhea : reports: Frequency, Other (has a suprapubic in place and has devloped cloudy urine.). denies: Dysuria Musculoskeletal: denies: Neck pain, Back pain, Extremity pain Neurologic: reports: Generalized weakness PD PAST MEDICAL HISTORY - Past Medical History Cardiovascular: Hypertension, High cholesterol Respiratory: None Endocrine/Autoimmune: None GI: GERD, Colon polyps : Benign prostate hypertrophy, Frequency HEENT: Dental implants Psych: Claustrophobia Musculoskeletal: Osteoarthritis, Chronic back pain Derm: None - Past Surgical History General: Colonoscopy Ortho: Hip replacement, Shoulder arthroplasty, Arthroscopic surgery, Other HEENT: Cataracts - Present Medications Home Medications: Ambulatory Orders Medication Instructions Recorded Confirmed Lisinopril 20 mg PO DAILY 01/14/14 12/17/20 Omeprazole 20 mg PO QDAC 01/14/14 12/17/20 Tamsulosin [Flomax] 0.4 mg ORAL QPM 01/14/14 12/17/20 Citalopram Hydrobromide [Celexa] 20 mg PO DAILY 07/17/17 12/17/20 Trazodone HCl 100 mg PO QPM 07/17/17 12/17/20 HYDROcodone/ACET 7.5/325 [[place] 1 tab PO Q4HR PRN #60 tablet 07/20/17 12/17/20 7.5/325] Albuterol Sulf [Ventolin Hfa 1 - 2 puffs INH Q4HR PRN #1 inhaler 05/20/21 Inhaler] Amox/Clav 875/125 [Augmentin] 1 each PO Q12H #14 tablet 05/20/21 - Allergies Allergies/Adverse Reactions: Allergies Allergy/AdvReac Type Severity Reaction Status Date / Time No Known Drug Allergies Allergy Verified 05/20/21 10:51 - Social History Smoking Status: Never smoker PD ED PE NORMAL - Vitals Vital signs reviewed: Yes (normal *-) - General General: Alert and oriented X 3, No acute distress, Well developed/nourished - HEENT HEENT: Atraumatic, PERRL, EOMI - Neck Neck: Supple, no meningeal sign - Cardiac Cardiac: RRR, No murmur - Respiratory Respiratory: No respiratory distress, Clear bilaterally, Other (needs help to sit up in bed) - Abdomen Abdomen: Soft, Non tender, Other (no inflamation around the suprapubic site. 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, Normal speech, Other (para palegic ) Eye Opening: Spontaneous Motor: Obeys Commands Verbal: Oriented GCS Score: 15 - Psych Psych: Normal mood, Normal affect Results - Vitals Vitals: Vital Signs - 24 hr 05/20/21 05/20/21 05/20/21 10:45 12:10 14:00 Temperature 36.6 C Heart Rate 88 79 77 Respiratory 24 23 16 Rate Blood Pressure 130/68 128/73 126/80 O2 Saturation 94 97 98 05/20/21 05/20/21 15:05 15:28 Temperature 37 C Heart Rate 84 80 Respiratory 20 23 Rate Blood Pressure 137/81 H O2 Saturation 98 Oxygen O2 Source Room air - Labs Labs: Laboratory Tests 05/20/21 05/20/21 05/20/21 11:44 11:44 11:44 WBC 14.6 H RBC 3.99 L Hgb 13.7 L Hct 39.5 L MCV 99.0 H MCH 34.3 H MCHC 34.7 RDW 12.7 Plt Count 184 MPV 7.9 Neut # (Auto) 12.9 H Lymph # (Auto) 0.5 L [place] # (Auto) 1.1 H Eos # (Auto) 0.0 Baso # (Auto) 0.0 Absolute Nucleated RBC 0.00 Nucleated RBC % 0.0 Sodium 125 L Potassium 3.8 Chloride 91 L Carbon Dioxide 25 Anion Gap 9.0 BUN 13 Creatinine 0.6 Estimated GFR (MDRD) 132 Glucose 146 H Lactic Acid 1.5 Calcium 8.6 Total Bilirubin 0.7 AST 26 ALT 48 Alkaline Phosphatase 46 Total Protein 6.9 Albumin 3.7 Globulin 3.2 Albumin/Globulin Ratio 1.2 Lipase 23 Urine Color Urine Clarity Urine pH Ur Specific [place] Urine Protein Urine Glucose (UA) Urine Ketones Urine Occult Blood Urine Nitrite Urine Bilirubin Urine Urobilinogen Ur Leukocyte Esterase Urine RBC Urine WBC Urine WBC Clumps Ur Squamous Epith Cells Urine Bacteria Urine Mucus Ur Microscopic Review Urine Culture Comments Nasal Adenovirus (PCR) Nasal B. parapertussis DNA (PCR) Nasal Coronavir 229E PCR Nasal Coronavir HKU1 PCR Nasal Coronavir NL63 PCR Nasal Coronavir OC43 PCR Nasal Enterovir/Rhinovir PCR Nasal Influenza B PCR Nasal Influenza A PCR Nasal Parainfluen 1 PCR Nasal Parainfluen 2 PCR Nasal Parainfluen 3 PCR Nasal Parainfluen 4 PCR Nasal RSV (PCR) Nasal B.pertussis DNA PCR Nasal C.pneumoniae (PCR) Don Human Metapneumo PCR Nasal M.pneumoniae (PCR) Nasal SARS-CoV-2 (PCR) 05/20/21 05/20/21 13:30 13:42 WBC RBC Hgb Hct MCV MCH MCHC RDW Plt Count MPV Neut # (Auto) Lymph # (Auto) [place] # (Auto) Eos # (Auto) Baso # (Auto) Absolute Nucleated RBC Nucleated RBC % Sodium Potassium Chloride Carbon Dioxide Anion Gap BUN Creatinine Estimated GFR (MDRD) Glucose Lactic Acid Calcium Total Bilirubin AST ALT Alkaline Phosphatase Total Protein Albumin Globulin Albumin/Globulin Ratio Lipase Urine Color YELLOW Urine Clarity CLEAR Urine pH 6.0 Ur Specific [place] 1.015 Urine Protein NEGATIVE Urine Glucose (UA) NEGATIVE Urine Ketones NEGATIVE Urine Occult Blood NEGATIVE Urine Nitrite POSITIVE H Urine Bilirubin NEGATIVE Urine Urobilinogen 0.2 (NORMAL) Ur Leukocyte Esterase MODERATE H Urine RBC 0-5 Urine WBC >25 H Urine WBC Clumps PRESENT Ur Squamous Epith Cells NONE SEEN Urine Bacteria Moderate H Urine Mucus Few Strands Ur Microscopic Review INDICATED Urine Culture Comments INDICATED Nasal Adenovirus (PCR) NOT DETECTED Nasal B. parapertussis DNA (PCR) NOT DETECTED Nasal Coronavir 229E PCR NOT DETECTED Nasal Coronavir HKU1 PCR NOT DETECTED Nasal Coronavir NL63 PCR NOT DETECTED Nasal Coronavir OC43 PCR NOT DETECTED Nasal Enterovir/Rhinovir PCR NOT DETECTED Nasal Influenza B PCR NOT DETECTED Nasal Influenza A PCR NOT DETECTED Nasal Parainfluen 1 PCR NOT DETECTED Nasal Parainfluen 2 PCR NOT DETECTED Nasal Parainfluen 3 PCR NOT DETECTED Nasal Parainfluen 4 PCR NOT DETECTED Nasal RSV (PCR) NOT DETECTED Nasal B.pertussis DNA PCR NOT DETECTED Nasal C.pneumoniae (PCR) NOT DETECTED Don Human Metapneumo PCR NOT DETECTED Nasal M.pneumoniae (PCR) NOT DETECTED Nasal SARS-CoV-2 (PCR) NOT DETECTED - Rads (name of study) chest Radiology: Prelim report reviewed (Impression: No acute cardiopulmonary abnormality.), EMP read indepedently, See rad report PD MEDICAL DECISION MAKING - ED course Complexity details: reviewed old records, reviewed results, re-evaluated patient, considered differential, d/w patient, d/w family ED course: 75-year-old 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 He is administered saline feels improved we will administer some Rocephin. He does have some wheezing that he has had periodically for several months and he has this wheezing occurring here in the emergency department today and we are administering a DuoNeb. This helps quite a bit and the patient is prescribed an albuterol inhaler after teaching. Departure - Departure Disposition: 01 Home, Self Care Clinical Impression: Dehydration determined by examination Urinary tract infection Qualifiers: Urinary tract infection type: acute cystitis Hematuria presence: without hematuria Qualified Code(s): N30.00 - Acute cystitis without hematuria Condition: Stable Instructions: ED Dehydration, ED UTI Cystitis Male Follow-Up: Dorothea Akins ARNP [Primary Care Provider] - Prescriptions: Albuterol Sulf [Ventolin Hfa Inhaler] 1 - 2 puffs INH Q4HR PRN #1 inhaler PRN Reason: Shortness Of Air/Wheezing Amox/Clav 875/125 [Augmentin] 1 each PO Q12H #14 tablet Comments: Chris, today it appears you are significantly dehydrated and have urinary tract infection. This is likely a cause of your weakness. The expectation is you will recover to your baseline from previous. In addition you have some reactive airway disease which is improved with use the inhaler, use the inhaler as needed. Medications have been E scribed to Cheryl Simms in [place] Discharge Date/Time: 05/20/21 15:35
[2021-05-20 11:55] LABS: BASOPHILS % (AUTO) 0.3 %; HCT - HEMATOCRIT 39.5 % (42.0-52.0); HGB - HEMOGLOBIN 13.7 g/dL (14.0-18.0); LYMPHOCYTES # (AUTO) 0.5 10^3/uL (1.5-3.5); LYMPHOCYTES % (AUTO) 3.4 %; MEAN CORPUSCULAR HEMOGLOBIN 34.3 pg (27.0-31.0); MEAN CORPUSCULAR HGB CONC 34.7 g/dL (32.0-36.0); MEAN PLATELET VOLUME 7.9 fL (7.4-11.4); MONOCYTES # (AUTO) 1.1 10^3/uL (0.0-1.0); MONOCYTES % (AUTO) 7.4 %; NEUTROPHILS # (AUTO) 12.9 10^3/uL (1.5-6.6); NEUTROPHILS % (AUTO) 88.1 %; PLT - PLATELET COUNT 184 10^3/uL (130-450); RED BLOOD COUNT 3.99 10^6/uL (4.70-6.10); RED CELL DISTRIBUTION WIDTH 12.7 % (12.0-15.0); WHITE BLOOD COUNT 14.6 x10^3/uL (4.8-10.8)
[2021-05-20 12:11] LABS: ALBUMIN 3.7 g/dL (3.2-5.5); ALBUMIN/GLOBULIN RATIO 1.2 (1.0-2.2); BILIRUBIN,TOTAL 0.7 mg/dL (0.2-1.0); CALCIUM 8.6 mg/dL (8.5-10.3); CREATININE 0.6 mg/dL (0.6-1.2); POTASSIUM 3.8 mmol/L (3.5-5.0); TOTAL PROTEIN 6.9 g/dL (6.7-8.2)
[2021-05-20 13:51] LABS: BILIRUBIN,URINE NEGATIVE (NEGATIVE); GLUCOSE, URINE (UA) NEGATIVE (NEGATIVE); KETONES,URINE (UA) NEGATIVE (NEGATIVE); LEUKOCYTE ESTERASE, URINE MODERATE (NEGATIVE); NITRITE,URINE POSITIVE (NEGATIVE); OCCULT BLOOD,URINE NEGATIVE (NEGATIVE); PROTEIN,URINE NEGATIVE (NEGATIVE); UROBILINOGEN,URINE 0.2 (NORMAL) E.U./dL (NORMAL)
[2021-05-20 13:52] LABS: CLARITY,URINE CLEAR (CLEAR)
[2021-05-20 13:59] LABS: RBC,URINE 0-5 /HPF (0-5); WBC CLUMPS,URINE PRESENT; WBC,URINE >25 /HPF (0-3)
[2021-05-20 14:00] LABS: BACTERIA,URINE Moderate /HPF (None Seen); MUCUS,URINE Few Strands; SQUAMOUS EPITHELIAL CELL,UR NONE SEEN (<= Few)
[2021-05-20] MEDS ORDERED: cefTRIAXone 1 GM in SODIUM CHLORIDE 0.9% MINIBAG 100 ML IV STA (14:23)
[2021-05-20] MEDS ORDERED: IPRATROPIUM/ALBUTEROL 3 ML NEB INH STA (14:30)
[2021-05-20 14:46] LABS: B. PARAPERTUSSIS- RESP PCR PAN NOT DETECTED; B. PERTUSSIS- RESP PCR PANEL NOT DETECTED; C. PNEUMONIAE- RESP PCR PANEL NOT DETECTED; CORONAVIRUS 229E-RESP PCR NOT DETECTED; CORONAVIRUS HKU1-RESP PCR NOT DETECTED; CORONAVIRUS NL63-RESP PCR NOT DETECTED; CORONAVIRUS OC43-RESP PCR NOT DETECTED; HUMAN METAPNEUMOVIRUS NOT DETECTED; INFLUENZA A- RESP PCR PANEL NOT DETECTED; INFLUENZA B - RESP PCR PANEL NOT DETECTED; PARAINFLUENZA VIRUS 1 NOT DETECTED; PARAINFLUENZA VIRUS 2 NOT DETECTED; PARAINFLUENZA VIRUS 3 NOT DETECTED; PARAINFLUENZA VIRUS 4 NOT DETECTED; RHINOVIRUS/ENTEROVIRUS NOT DETECTED; RSV- RESP PCR PANEL NOT DETECTED; SARS-CoV-2 -RESP PCR PANEL NOT DETECTED
[2021-05-20 14:47] LABS: M. PNEUMONIAE- RESP PCR PANEL NOT DETECTED
[2021-05-20 15:28] VITALS: BP 137/81
--- NOTE | 2021-05-25 17:35 | ED Physician Documentation ---
ED Addendum - Addendum Addendum: 05/25/21 17:33 Patient had a blood culture result just today originally from the drawn. It was growing Pseudomonas. Review of the chart shows his urine culture had resulted this Pseudomonas as well on the . It was sensitive to piperacillin and cephalosporins but also quinolones. Review of the culture log shows action taken of changing from his Augmentin to ciprofloxacin and started on the called into the pharmacy. Presumably he would be having coverage for the Pseudomonas blood culture. However it would be prudent to ensure he is feeling better and that the blood system has cleared. I will have the charge nurse call the patient to see how he is feeling. If he is still ill, he should return to the ER. If he is feeling well, then at this time of day he could likely just contact his primary care tomorrow or return to the ER for repeat blood cultures to ensure clearance from the system.
--- NOTE | 2021-05-27 12:09 | ED Physician Documentation ---
ED Addendum - Addendum Addendum: 05/27/21 12:09 Reviewing cultures, urine positive for Pseudomonas that was sensitive to Cipro which he is on, blood positive 1 out of 2 for Pseudomonas which is resistant to Cipro. According to the notes the patient was feeling fine. I will asked the charge nurse to call him again and if he is feeling ill at all to return to the emergency department for reevaluation.
== END 2021-05-20 15:35 | disposition home or self-care (01) ==
LOC: ED 10:41
DX: N30.00 Acute cystitis without hematuria (principal); B96.5 Pseudomonas (aeruginosa) (mallei) (pseudomallei) as the cause of diseases classified elsewhere; E86.0 Dehydration; I10 Essential (primary) hypertension; Z96.0 Presence of urogenital implants; Z20.822 Contact with and (suspected) exposure to COVID-19
CPT/HCPCS: 0202U; 36415; 80053; 81001; 81003; 83605; 83690; 85025; 87040; 87077; 87086; 87150; 87181; 94640; 94664; 96361; 96365; 99283

== ENCOUNTER 2021-06-04 14:18 | Outpatient (CLI) | payer MEDICARE, OTHER | END 2021-06-04 14:19 | disposition home or self-care (01) | LOC: LAB 14:18 | PROVIDERS: ATTEND Registered Nurse | DX: A41.52 Sepsis due to Pseudomonas (principal) | CPT/HCPCS: 87040 ==

== ENCOUNTER 2021-07-30 13:08 | Emergency (ER) | payer MEDICARE, OTHER ==
--- NOTE | 2021-07-30 14:14 | ED Physician Documentation ---
PD HPI DYSPNEA - Stated complaint Stated Complaint: COUGH/SOA - Chief complaint Chief Complaint: Resp - History obtained from History obtained from: Patient - Additional information Additional information: 75-year-old gentleman with history of transverse myelitis 2 years ago with residual neurologic symptoms making him wheelchair-bound with incomplete quadriplegia, neurogenic bladder. He has had about a month worth of cough productive of copious clear sputum. It is not associated with shortness of breath, chest pain, pedal edema, or fevers. He has a remote history of smoking, having quit about 35 years ago and still uses occasional marijuana. Review of Systems Constitutional: denies: Fever, Chills Ears: reports: Reviewed and negative Cardiac: denies: Chest pain / pressure, Palpitations PD PAST MEDICAL HISTORY - Past Medical History Cardiovascular: Hypertension, High cholesterol Respiratory: None Neuro: None Endocrine/Autoimmune: None GI: GERD, Colon polyps : Benign prostate hypertrophy, Frequency HEENT: Dental implants Psych: Claustrophobia Musculoskeletal: Osteoarthritis, Chronic back pain Derm: None - Past Surgical History Past Surgical History: Yes General: Colonoscopy Ortho: Hip replacement, Shoulder arthroplasty, Arthroscopic surgery, Other HEENT: Cataracts - Present Medications Home Medications: Ambulatory Orders Medication Instructions Recorded Confirmed Lisinopril 10 mg PO DAILY 01/14/14 07/30/21 Omeprazole 20 mg PO QDAC 01/14/14 07/30/21 Citalopram Hydrobromide [Celexa] 20 mg PO DAILY 07/17/17 07/30/21 Trazodone HCl 100 mg PO QPM 07/17/17 07/30/21 HYDROcodone/ACET 7.5/325 [[place] 1 tab PO Q4HR PRN #60 tablet 07/20/17 07/30/21 7.5/325] Albuterol Sulf [Ventolin Hfa 1 - 2 puffs INH Q4HR PRN #1 inhaler 05/20/21 07/30/21 Inhaler] Benzonatate [Tessalon] 200 mg PO QID PRN #20 cap 07/30/21 Carbamazepine [Equetro] 100 mg PO BID 07/30/21 07/30/21 Doxycycline Hyclate 100 mg PO BID #14 tab.sr 07/30/21 Gabapentin [Neurontin] 400 mg PO QID 07/30/21 07/30/21 Magnesium Oxide [Magnesium] 400 mg PO DAILY 07/30/21 07/30/21 Mecobalamin [B12 Active] 1,000 mg PO DAILY 07/30/21 07/30/21 guaiFENesin/CODEINE [Robitussin AC] 5 - 10 ml PO Q6H PRN #120 ml 07/30/21 predniSONE [Deltasone] 60 mg PO DAILY 5 Days #15 tablet 07/30/21 - Allergies Allergies/Adverse Reactions: Allergies Allergy/AdvReac Type Severity Reaction Status Date / Time No Known Drug Allergies Allergy Verified 07/30/21 13:18 - Social History Does the pt smoke?: No Smoking Status: Never smoker Does the pt drink ETOH?: No Does the pt have substance abuse?: No - Immunizations Immunizations are current?: Yes - POLST Patient has POLST: No PD ED PE NORMAL - Vitals Vital signs reviewed: Yes - General General: Alert and oriented X 3, Other (Pleasant gentleman sitting in a wheelchair in no distress) - Cardiac Cardiac: RRR, No murmur - Respiratory Respiratory: No respiratory distress, Other (Mild expiratory wheezes without significant focal findings, very occasional bronchitic cough.) - Abdomen Abdomen: Normal bowel sounds, Soft - Extremities Extremities: No edema, No calf tenderness / cord - Neuro Neuro: Alert and oriented X 3, Normal speech Results - Vitals Vitals: Vital Signs - 24 hr 07/30/21 07/30/21 07/30/21 13:13 14:09 15:00 Temperature 36.3 C L Heart Rate 65 71 63 Respiratory 16 20 18 Rate Blood Pressure 142/76 H 110/87 H 128/76 O2 Saturation 97 98 99 Oxygen O2 Source Room air - Rads (name of study) 2 view chest x-ray is unremarkable Radiology: EMP read contemporaneously PD MEDICAL DECISION MAKING - ED course ED course: 75-year-old gentleman with a syndrome most consistent with bronchitis. Given the time course seems reasonable to trial some antibiotics as he has been sick for a month. He also has significant underlying comorbidities most notably being functionally paraplegic. He requests Covid testing here, although admittedly his syndrome is not really consistent with a typical COVID syndrome. Departure - Departure Disposition: 01 Home, Self Care Clinical Impression: Bronchitis Condition: Good Record reviewed to determine appropriate education?: Yes Instructions: ED Upper Resp Infec Abx Tx Prescriptions: predniSONE [Deltasone] 60 mg PO DAILY 5 Days #15 tablet Doxycycline Hyclate 100 mg PO BID #14 tab.sr guaiFENesin/CODEINE [Robitussin AC] 5 - 10 ml PO Q6H PRN #120 ml PRN Reason: Cough Benzonatate [Tessalon] 200 mg PO QID PRN #20 cap PRN Reason: Cough Comments: I sent your prescriptions electronically to [facility] in [place]. You have a Covid test pending. You need to self quarantine until the result is done and negative. Do not leave your house. Do not get near anybody. The results should be done in 48 to 72 hours. We will call with a positive result, the fastest way to get a negative result for confirmation though is to go to the hospital website at [email or web address], click on the my [employer] tab and sign up for the patient portal. If any friends or family get sick and would like to have a Covid test done, but do not have signs or symptoms that would necessitate being hospitalized, there are multiple local options for Covid testing. [facility] keeps an updated list of testing and vaccination options at: [email or web address]. Return if worsening, follow-up with your doctor in a week if not better. Do not drink or drive while taking prescription cough medicine. Discharge Date/Time: 07/30/21 15:26
[2021-07-30 15:01] VITALS: BP 128/76
--- NOTE | 2021-07-30 15:19 | XRAY Report ---
PROCEDURE: Chest 2 View X-Ray INDICATIONS: cough TECHNIQUE: 2 view(s) of the chest. COMPARISON: Chest x-ray 05/20/2021 FINDINGS: Surgical changes and devices: None. Lungs and pleura: No pleural effusions or pneumothorax. Lungs are clear. Mediastinum: Mediastinal contours are normal. Heart size is normal. Bones and chest wall: No suspicious bony abnormalities. Soft tissues appear unremarkable. IMPRESSION: No acute pulmonary process. Reviewed by: Martina Page MD on 07/30/2021 3:17 PM PST Approved by: Martina Page MD on 07/30/2021 3:17 PM [facility] Station ID: [id number]
== END 2021-07-30 15:26 | disposition home or self-care (01) ==
LOC: ED 13:08
DX: U07.1 COVID-19 (principal); J40 Bronchitis, not specified as acute or chronic; G82.20 Paraplegia, unspecified; Z87.891 Personal history of nicotine dependence; Z99.3 Dependence on wheelchair; I10 Essential (primary) hypertension
CPT/HCPCS: 71046; 99283; 99284; U0004

== ENCOUNTER 2021-09-15 08:00 | Outpatient (CLI) | payer MEDICARE, OTHER | END 2021-09-15 23:59 | disposition home or self-care (01) | LOC: LAB.S 08:00 | PROVIDERS: ATTEND Registered Nurse | DX: R30.0 Dysuria (principal) | CPT/HCPCS: 81002 ==

== ENCOUNTER 2021-11-18 08:00 | Outpatient (CLI) | payer MEDICARE, OTHER | END 2021-11-18 23:59 | disposition home or self-care (01) | LOC: LAB 08:00 | PROVIDERS: ATTEND Registered Nurse | DX: R30.0 Dysuria (principal) | CPT/HCPCS: 87077; 87086; 87181 ==

== ENCOUNTER 2021-11-21 15:00 | Emergency (ER) | payer MEDICARE, OTHER ==
[2021-11-21 15:25] LABS: BILIRUBIN,URINE NEGATIVE (NEGATIVE); GLUCOSE, URINE (UA) NEGATIVE (NEGATIVE); KETONES,URINE (UA) NEGATIVE (NEGATIVE); LEUKOCYTE ESTERASE, URINE MODERATE (NEGATIVE); NITRITE,URINE NEGATIVE (NEGATIVE); OCCULT BLOOD,URINE TRACE-INTA (NEGATIVE); PH,URINE 7.5 PH (5.0-7.5); PROTEIN,URINE NEGATIVE (NEGATIVE); UROBILINOGEN,URINE 0.2 (NORMAL) E.U./dL (NORMAL)
--- NOTE | 2021-11-21 15:29 | ED Physician Documentation ---
History of Present Illness - Stated complaint Stated Complaint: UTI/SENT BY [facility] - Chief complaint Chief Complaint: UTI PD PAST MEDICAL HISTORY - Past Medical History Cardiovascular: Hypertension, High cholesterol Respiratory: None Neuro: None Endocrine/Autoimmune: None GI: GERD, Colon polyps : Benign prostate hypertrophy, Frequency HEENT: Dental implants Psych: Claustrophobia Musculoskeletal: Osteoarthritis, Chronic back pain Derm: None - Past Surgical History Past Surgical History: Yes General: Colonoscopy Ortho: Hip replacement, Shoulder arthroplasty, Arthroscopic surgery, Other HEENT: Cataracts - Present Medications Home Medications: Ambulatory Orders Medication Instructions Recorded Confirmed Lisinopril 10 mg PO DAILY 01/14/14 07/30/21 Omeprazole 20 mg PO QDAC 01/14/14 07/30/21 Citalopram Hydrobromide [Celexa] 20 mg PO DAILY 07/17/17 07/30/21 Trazodone HCl 100 mg PO QPM 07/17/17 07/30/21 HYDROcodone/ACET 7.5/325 [[place] 1 tab PO Q4HR PRN #60 tablet 07/20/17 07/30/21 7.5/325] Albuterol Sulf [Ventolin Hfa 1 - 2 puffs INH Q4HR PRN #1 inhaler 05/20/21 07/30/21 Inhaler] Benzonatate [Tessalon] 200 mg PO QID PRN #20 cap 07/30/21 Carbamazepine [Equetro] 100 mg PO BID 07/30/21 07/30/21 Doxycycline Hyclate 100 mg PO BID #14 tab.sr 07/30/21 Gabapentin [Neurontin] 400 mg PO QID 07/30/21 07/30/21 Magnesium Oxide [Magnesium] 400 mg PO DAILY 07/30/21 07/30/21 Mecobalamin [B12 Active] 1,000 mg PO DAILY 07/30/21 07/30/21 guaiFENesin/CODEINE [Robitussin AC] 5 - 10 ml PO Q6H PRN #120 ml 07/30/21 predniSONE [Deltasone] 60 mg PO DAILY 5 Days #15 tablet 07/30/21 - Allergies Allergies/Adverse Reactions: Allergies Allergy/AdvReac Type Severity Reaction Status Date / Time No Known Drug Allergies Allergy Verified 11/21/21 15:12 - Social History Does the pt smoke?: No Smoking Status: Never smoker Does the pt drink ETOH?: No Does the pt have substance abuse?: No - Immunizations Immunizations are current?: Yes - POLST Patient has POLST: No Results - Vitals Vitals: Vital Signs - 24 hr 11/21/21 15:08 Temperature 36.2 C L Heart Rate 68 Respiratory 18 Rate Blood Pressure 118/61 O2 Saturation 97 Oxygen O2 Source Room air
[2021-11-21 15:30] LABS: CLARITY,URINE HAZY (CLEAR)
[2021-11-21 15:39] LABS: BACTERIA,URINE Few /HPF (None Seen); RBC,URINE 0-5 /HPF (0-5); SQUAMOUS EPITHELIAL CELL,UR RARE Squamous (<= Few)
[2021-11-21 15:53] LABS: BASOPHILS % (AUTO) 0.5 %; EOSINOPHILS # (AUTO) 0.1 10^3/uL (0.0-0.7); EOSINOPHILS % (AUTO) 2.9 %; HCT - HEMATOCRIT 43.1 % (42.0-52.0); HGB - HEMOGLOBIN 14.5 g/dL (14.0-18.0); LYMPHOCYTES # (AUTO) 1.1 10^3/uL (1.5-3.5); LYMPHOCYTES % (AUTO) 25.6 %; MEAN CORPUSCULAR HEMOGLOBIN 33.6 pg (27.0-31.0); MEAN CORPUSCULAR HGB CONC 33.6 g/dL (32.0-36.0); MEAN CORPUSCULAR VOLUME 99.8 fL (80.0-94.0); MEAN PLATELET VOLUME 7.7 fL (7.4-11.4); MONOCYTES # (AUTO) 0.5 10^3/uL (0.0-1.0); MONOCYTES % (AUTO) 11.1 %; NEUTROPHILS # (AUTO) 2.6 10^3/uL (1.5-6.6); NEUTROPHILS % (AUTO) 59.4 %; PLT - PLATELET COUNT 224 10^3/uL (130-450); RED BLOOD COUNT 4.32 10^6/uL (4.70-6.10); RED CELL DISTRIBUTION WIDTH 12.7 % (12.0-15.0); WHITE BLOOD COUNT 4.4 x10^3/uL (4.8-10.8)
[2021-11-21 16:05] LABS: ALBUMIN/GLOBULIN RATIO 1.3 (1.0-2.2); BILIRUBIN,TOTAL 0.5 mg/dL (0.2-1.0); CALCIUM 8.8 mg/dL (8.5-10.3); CREATININE 0.7 mg/dL (0.6-1.2); TOTAL PROTEIN 7.2 g/dL (6.7-8.2)
[2021-11-21] MEDS ORDERED: cephALEXin 250 MG CAPSULE PO STA (16:33)
[2021-11-21 17:12] VITALS: BP 121/69
== END 2021-11-21 17:11 | disposition home or self-care (01) ==
LOC: ED 15:00
DX: N39.0 Urinary tract infection, site not specified (principal); I10 Essential (primary) hypertension
CPT/HCPCS: 36415; 80053; 81001; 83690; 85025; 87086; 87181; 93005; 99281; 99283; A9270; 81003

== ENCOUNTER 2021-12-14 14:11 | Outpatient (CLI) | payer MEDICARE, OTHER ==
--- NOTE | 2021-12-14 19:04 | XRAY Report ---
PROCEDURE: Chest 2 View X-Ray INDICATIONS: CHRONIC COUGH TECHNIQUE: 2 view(s) of the chest. COMPARISON: None. FINDINGS: Surgical changes and devices: None. Lungs and pleura: No pleural effusions or pneumothorax. Right lower lobe atelectasis and/or infiltra te noted. Hyperinflation and chronic interstitial changes present. Mediastinum: Mediastinal contours are normal. Heart size is normal. Bones and chest wall: No suspicious bony abnormalities. Soft tissues appear unremarkable. IMPRESSION: Right lower lobe atelectasis and or infiltrate Reviewed by: Darrick Benitez MD on 12/14/2021 6:02 PM [facility] Approved by: Darrick Benitez MD on 12/14/2021 6:02 PM [facility] Station ID: [id number]
== END 2021-12-14 14:12 | disposition home or self-care (01) ==
LOC: DI 14:11
PROVIDERS: ATTEND Student in an Organized Health Care Education/Training Program
DX: R91.8 Other nonspecific abnormal finding of lung field (principal)

== ENCOUNTER 2021-12-16 10:52 | Outpatient (CLI) | payer MEDICARE, OTHER | END 2021-12-16 10:53 | disposition critical access hospital (66) | LOC: EMS 10:52 | DX: T83.021A Displacement of indwelling urethral catheter, initial encounter (principal) | CPT/HCPCS: A0425; A0429 ==

== ENCOUNTER 2021-12-16 11:05 | Emergency (ER) | payer MEDICARE, OTHER ==
--- NOTE | 2021-12-16 11:33 | ED Physician Documentation ---
History of Present Illness - Stated complaint Stated Complaint: - Chief complaint Chief Complaint: General - History obtained from History obtained from: Patient - History of Present Illness Timing: Prior to arrival - Additonal information Additional information: 76-year-old male with history of paraplegia, chronic indwelling suprapubic catheter presents for accidental removal of his suprapubic catheter. Patient states that the catheter was placed yesterday, today he caught his hand on the catheter and ripped it out. His mother immediately placed the old Victoria back into the tract to keep it open and called 911. Patient otherwise denies complaints. Review of Systems Ten Systems: 10 systems reviewed and negative Constitutional: denies: Fever, Chills Cardiac: denies: Chest pain / pressure, Palpitations Respiratory: denies: Dyspnea, Cough : reports: Other (removed victoria). denies: Dysuria, Frequency PD PAST MEDICAL HISTORY - Past Medical History Cardiovascular: Hypertension, High cholesterol Respiratory: None Neuro: None Endocrine/Autoimmune: None GI: GERD, Colon polyps : Benign prostate hypertrophy, Frequency HEENT: Dental implants Psych: Claustrophobia Musculoskeletal: Osteoarthritis, Chronic back pain Derm: None - Past Surgical History Past Surgical History: Yes General: Colonoscopy Ortho: Hip replacement, Shoulder arthroplasty, Arthroscopic surgery, Other HEENT: Cataracts - Present Medications Home Medications: Ambulatory Orders Medication Instructions Recorded Confirmed Lisinopril 10 mg PO DAILY 01/14/14 07/30/21 Omeprazole 20 mg PO QDAC 01/14/14 07/30/21 Citalopram Hydrobromide [Celexa] 20 mg PO DAILY 07/17/17 07/30/21 Trazodone HCl 100 mg PO QPM 07/17/17 07/30/21 HYDROcodone/ACET 7.5/325 [[employer] 1 tab PO Q4HR PRN #60 tablet 07/20/17 07/30/21 7.5/325] Albuterol Sulf [Ventolin Hfa 1 - 2 puffs INH Q4HR PRN #1 inhaler 05/20/21 07/30/21 Inhaler] Benzonatate [Tessalon] 200 mg PO QID PRN #20 cap 07/30/21 Carbamazepine [Equetro] 100 mg PO BID 07/30/21 07/30/21 Doxycycline Hyclate 100 mg PO BID #14 tab.sr 07/30/21 Gabapentin [Neurontin] 400 mg PO QID 07/30/21 07/30/21 Magnesium Oxide [Magnesium] 400 mg PO DAILY 07/30/21 07/30/21 Mecobalamin [B12 Active] 1,000 mg PO DAILY 07/30/21 07/30/21 guaiFENesin/CODEINE [Robitussin AC] 5 - 10 ml PO Q6H PRN #120 ml 07/30/21 predniSONE [Deltasone] 60 mg PO DAILY 5 Days #15 tablet 07/30/21 cephALEXin [Keflex] 500 mg PO Q6H #20 cap 11/21/21 levoFLOXacin [Levofloxacin] 750 mg PO DAILY #5 tablet 12/16/21 - Allergies Allergies/Adverse Reactions: Allergies Allergy/AdvReac Type Severity Reaction Status Date / Time No Known Drug Allergies Allergy Verified 11/21/21 15:12 - Social History Does the pt smoke?: No Smoking Status: Never smoker Does the pt drink ETOH?: No Does the pt have substance abuse?: No - Immunizations Immunizations are current?: Yes - POLST Patient has POLST: No PD ED PE NORMAL - Vitals Vital signs reviewed: Yes - General General: Alert and oriented X 3, No acute distress - HEENT HEENT: Atraumatic, PERRL, EOMI - Neck Neck: Supple, no meningeal sign, No bony TTP, No adenopathy - Cardiac Cardiac: No gallop - Abdomen Abdomen: Normal bowel sounds, Soft, Non tender, Non distended, Other (Suprabupic catheter in place) - 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, Other (normal) - Back Back: No CVA TTP, No spinal TTP - Derm Derm: Normal color, Warm and dry, No rash - Extremities Extremities: No deformity, No tenderness to palpate, Other (paraplegia, at baseline) - Neuro Neuro: Alert and oriented X 3, recycle driver 2-12 intact, Normal speech - Psych Psych: Normal mood, Normal affect Results - Vitals Vitals: Vital Signs - 24 hr 12/16/21 12/16/21 11:12 14:57 Temperature 37 C 36.6 C Heart Rate 63 70 Respiratory 16 Rate Blood Pressure 105/73 109/60 O2 Saturation 99 99 Oxygen O2 Source Room air - Labs Labs: Laboratory Tests 12/16/21 11:56 Urine Color YELLOW Urine Clarity SL. CLOUDY Urine pH 8.0 H Ur Specific [place] 1.015 Urine Protein NEGATIVE Urine Glucose (UA) NEGATIVE Urine Ketones NEGATIVE Urine Occult Blood LARGE H Urine Nitrite NEGATIVE Urine Bilirubin NEGATIVE Urine Urobilinogen 0.2 (NORMAL) Ur Leukocyte Esterase MODERATE H Urine RBC TNTC H Urine WBC >25 H Ur Squamous Epith Cells RARE Squamous Urine Bacteria Few Urine Culture Comments INDICATED Procedures - General procedure General procedure: Suprapubic Victoria catheter replaced by myself. Prepped and draped in sterile fashion, prepared with chlorhexidine. 20 Chinese 30 cc balloon Victoria catheter inserted through the suprapubic tract with return of pinkish tinged urine. Patient tolerated procedure well, no complications. PD MEDICAL DECISION MAKING - ED course ED course: Accidental removal of Victoria catheter. Replacement myself per procedure note. Urinalysis showed leukocyte Estrace and WBCs present. Due to presence of chronic indwelling catheter will treat with Levaquin. Departure - Departure Disposition: 01 Home, Self Care Clinical Impression: Paraplegia Victoria catheter problem Qualifiers: Encounter type: initial encounter Qualified Code(s): T83.9XXA - Unspecified complication of genitourinary prosthetic device, implant and graft, initial encounter UTI (urinary tract infection) Qualifiers: Urinary tract infection type: catheter-associated UTI Indwelling urinary catheter type: indwelling urethral catheter Encounter type: initial encounter Qualified Code(s): T83.511A - Infection and inflammatory reaction due to indwelling urethral catheter, initial encounter Condition: Stable Instructions: ED UTI Cystitis Male Prescriptions: levoFLOXacin [Levofloxacin] 750 mg PO DAILY #5 tablet Discharge Date/Time: 12/16/21 14:57
[2021-12-16 12:07] LABS: BILIRUBIN,URINE NEGATIVE (NEGATIVE); GLUCOSE, URINE (UA) NEGATIVE (NEGATIVE); KETONES,URINE (UA) NEGATIVE (NEGATIVE); LEUKOCYTE ESTERASE, URINE MODERATE (NEGATIVE); NITRITE,URINE NEGATIVE (NEGATIVE); OCCULT BLOOD,URINE LARGE (NEGATIVE); PROTEIN,URINE NEGATIVE (NEGATIVE); UROBILINOGEN,URINE 0.2 (NORMAL) E.U./dL (NORMAL)
[2021-12-16 12:15] LABS: BACTERIA,URINE Few /HPF (None Seen); CLARITY,URINE SL. CLOUDY (CLEAR); RBC,URINE TNTC /HPF (0-5); SQUAMOUS EPITHELIAL CELL,UR RARE Squamous (<= Few); WBC,URINE >25 /HPF (0-3)
[2021-12-16 14:58] VITALS: BP 109/60
--- NOTE | 2021-12-18 12:34 | ED Physician Documentation ---
ED Addendum - Addendum Addendum: 12/18/21 12:34 Given culture for culture review, the H&P is consistent with colonizati on/asymptomatic bacteriuria. I asked the nurse to call the patient as antibiotics can likely be discontinued.
== END 2021-12-16 14:57 | disposition home or self-care (01) ==
LOC: EDUNIT# → ED 11:05
DX: T83.021A Displacement of indwelling urethral catheter, initial encounter (principal); T83.511A Infection and inflammatory reaction due to indwelling urethral catheter, initial encounter; G82.20 Paraplegia, unspecified
CPT/HCPCS: 51702; 81001; 87077; 87086; 87181; 99282; 99283

== ENCOUNTER 2021-12-16 14:58 | Outpatient (CLI) | payer MEDICARE, OTHER | END 2021-12-16 14:59 | disposition home or self-care (01) | LOC: EMS 14:58 | PROVIDERS: ATTEND Emergency Medicine | DX: G82.20 Paraplegia, unspecified (principal) | CPT/HCPCS: A0425; A0428 ==

== ENCOUNTER 2022-06-29 15:18 | Outpatient (CLI) | payer MEDICARE, OTHER ==
[2022-06-29 15:32] LABS: BASOPHILS % (AUTO) 0.5 %; EOSINOPHILS # (AUTO) 0.1 10^3/uL (0.0-0.7); EOSINOPHILS % (AUTO) 1.7 %; HCT - HEMATOCRIT 45.2 % (42.0-52.0); HGB - HEMOGLOBIN 15.2 g/dL (14.0-18.0); LYMPHOCYTES # (AUTO) 1.5 10^3/uL (1.5-3.5); LYMPHOCYTES % (AUTO) 25.7 %; MEAN CORPUSCULAR HEMOGLOBIN 32.7 pg (27.0-31.0); MEAN CORPUSCULAR HGB CONC 33.6 g/dL (32.0-36.0); MEAN CORPUSCULAR VOLUME 97.2 fL (80.0-94.0); MEAN PLATELET VOLUME 7.8 fL (7.4-11.4); MONOCYTES # (AUTO) 0.6 10^3/uL (0.0-1.0); MONOCYTES % (AUTO) 10.1 %; NEUTROPHILS # (AUTO) 3.6 10^3/uL (1.5-6.6); NEUTROPHILS % (AUTO) 61.7 %; PLT - PLATELET COUNT 189 10^3/uL (130-450); RED BLOOD COUNT 4.65 10^6/uL (4.70-6.10); WHITE BLOOD COUNT 5.8 x10^3/uL (4.8-10.8)
[2022-06-29 15:40] LABS: CALCIUM 8.9 mg/dL (8.5-10.3); CREATININE 0.6 mg/dL (0.6-1.2); POTASSIUM 4.3 mmol/L (3.5-5.0)
== END 2022-06-29 15:19 | disposition home or self-care (01) ==
LOC: LAB 15:18
PROVIDERS: ATTEND Psychiatry & Neurology Neurology
DX: G37.3 Acute transverse myelitis in demyelinating disease of central nervous system (principal)
CPT/HCPCS: 36415; 80048; 85025

== ENCOUNTER 2022-07-08 16:00 | Emergency (ER) | payer MEDICARE, OTHER ==
[2022-07-08 16:10] VITALS: BP 132/65
--- OUTSIDE RECORDS SUMMARY | 2022-07-08 16:37 | EXTERNAL MEDICAL SUMMARY RPT | Continuity of Care Document ---
:1945 Author Organization [facility] Address [address] [place] [address] Phone Care Team Providers Name Role Phone Unavailable Unavailable Unavailable Dorothea Fletcher Unavailable Unavailable Allergies No information. Encounters No information. Functional Status No information. Immunizations No information. Medications date description facility 2022-06-29 00:00 PENTOXIFYLLINE [facility] 2022-07-01 00:00 PENTOXIFYLLINE Walk[facility] Prim [facility] 2022-06-29 00:00 hydrocodone-acetaminophen Walk[facility] 2022-07-01 00:00 hydrocodone-acetaminophen Walk[facility] Clin [facility] 2022-06-29 00:00 gabapentin [facility] 2022-07-01 00:00 gabapentin [facility] 2022-06-29 00:00 PENTOXIFYLLINE [facility] Prim [facility] 2022-07-01 00:00 PENTOXIFYLLINE [facility] 2022-06-29 00:00 gabapentin [facility] 2022-07-01 00:00 gabapentin [facility] 2022-06-29 00:00 PENTOXIFYLLINE [facility] 2022-07-01 00:00 PENTOXIFYLLINE [facility] 2022-06-29 00:00 gabapentin [facility] [place] [facility] 2022-07-01 00:00 gabapentin [facility] 2022-06-29 00:00 hydrocodone-acetaminophen [facility] 2022-07-01 00:00 hydrocodone-acetaminophen [facility] 2022-06-29 00:00 gabapentin [facility] [place] 2022-07-01 00:00 gabapentin [facility] [place] 2022-06-29 00:00 hydrocodone-acetaminophen [facility] [place] 2022-07-01 00:00 hydrocodone-acetaminophen [facility] [place] 2022-06-29 00:00 PENTOXIFYLLINE [facility] [place] 2022-07-01 00:00 PENTOXIFYLLINE [facility] [place] 2022-06-29 00:00 hydrocodone-acetaminophen [facility] [place] 2022-07-01 00:00 hydrocodone-acetaminophen [facility] [place] 2022-06-29 00:00 vitamin [id number] acid [facility] [place] [facility] 2022-07-01 00:00 vitamin [id number] acid [facility] [place] [facility] No information. Procedures No information. Results/Labs test date author facility value unit interpret ation Result panel 1 (unknown) (no date) (unknown) Walk-In (no value) (units (unk nown) Clinic Primary unknown) [facility] Result panel 2 (unknown) (no date) (unknown) Walk-In (no value) (units (unk nown) Clinic Primary unknown[facility] Result panel 3 (unknown) (no date) (unknown) Walk-In (no value) (units (unk nown) Clinic Primary unknown) [facility] Result panel 4 (unknown) (no date) (unknown) Walk-In (no value) (units (unk nown) Clinic Primary unknown) [facility] Result panel 5 (unknown) (no date) (unknown) Walk-In (no value) (units (unk nown) Clinic Primary unknown) [facility] Result panel 6 (unknown) (no date) (unknown) Walk-In (no value) (units (unk nown) Clinic Primary unknown) [facility] Result panel 7 (unknown) (no date) (unknown) Walk-In (no value) (units (unk nown) Clinic Primary unknown) [facility] Result panel 8 (unknown) (no date) (unknown) Walk-In (no value) (units (unk nown) Clinic Primary unknown) [facility] Result panel 9 (unknown) (no date) (unknown) Walk-In (no value) (units (unk nown) Clinic Primary unknown) [facility] Result panel 10 (unknown) (no date) (unknown) Walk-In (no value) (units (unk nown) Clinic Primary unknown) [facility] Result panel 11 (unknown) (no date) (unknown) Walk-In (no value) (units (unk nown) Clinic Primary unknown) [facility] Result panel 12 (unknown) (no date) (unknown) Walk-In (no value) (units (unk nown) Clinic Primary unknown) [facility] Result panel 13 (unknown) (no date) (unknown) Walk-In (no value) (units (unk nown) Clinic Primary unknown) [facility] Result panel 14 (unknown) (no date) (unknown) Walk-In (no value) (units (unk nown) Clinic Primary unknown[facility] Result panel 15 (unknown) (no date) (unknown) Walk-In (no value) (units (unk nown) Clinic Primary unknown[facility] Result panel 16 (unknown) (no date) (unknown) Walk-In (no value) (units (unk nown) Clinic Primary unknown[facility] Result panel 17 (unknown) (no date) (unknown) Walk-In (no value) (units (unk nown) Clinic Primary unknown[facility] Result panel 18 (unknown) (no date) (unknown) Walk-In (no value) (units (unk nown) Clinic Primary unknown[facility] Result panel 19 (unknown) (no date) (unknown) Walk-In (no value) (units (unk nown) [facility] Primary unknown[facility] Result panel 20 (unknown) (no date) (unknown) Walk-In (no value) (units (unk nown) [facility] unknown[facility] Result panel 21 (unknown) (no date) (unknown) Walk-In (no value) (units (unk nown) [facility] unknown[facility] Result panel 22 (unknown) (no date) (unknown) Walk-In (no value) (units (unk nown) Clinic Primary unknown[facility] Result panel 23 (unknown) (no date) (unknown) Walk-In (no value) (units (unk nown) Clinic [facility] unknown[facility] Result panel 24 (unknown) (no date) (unknown) Walk-In (no value) (units (unk nown) Clinic [facility] unknown[facility] Result panel 25 (unknown) (no date) (unknown) Walk-In (no value) (units (unk nown) [facility] unknown[facility] Result panel 26 (unknown) (no date) (unknown) Walk-In (no value) (units (unk nown) [facility] unknown[facility] Result panel 27 (unknown) (no date) (unknown) Walk-In (no value) (units (unk nown) [facility] unknown[facility] Result panel 28 (unknown) (no date) (unknown) Walk-In (no value) (units ([facility] nown) [facility] unknown[facility] Result panel 29 (unknown) (no date) (unknown) Walk-In (no value) (units (unk nown) [facility] unknown[facility] Result panel 30 (unknown) (no date) (unknown) Walk-In (no value) (units ([facility] nown) [facility] unknown[facility] Result panel 31 (unknown) (no date) (unknown) Walk-In (no value) (units (unk nown) [facility] unknown[facility] Result panel 32 (unknown) (no date) (unknown) Walk-In (no value) (units (unk nown) [facility] unknown[facility] Result panel 33 (unknown) (no date) (unknown) Walk-In (no value) (units (unk nown) [facility] Result panel 34 (unknown) (no date) (unknown) Walk-In (no value) (units ([facility] nown) [facility] Result panel 35 (unknown) (no date) (unknown) Walk-In (no value) (units (unk nown) [facility] Result panel 36 (unknown) (no date) (unknown) Walk-In (no value) (units (unk nown) [facility] unknown[facility] Result panel 37 (unknown) (no date) (unknown) Walk-In (no value) (units (unk nown) [facility] Result panel 38 (unknown) (no date) (unknown) Walk-In (no value) (units (unk nown) [facility] unknown[facility] Result panel 39 (unknown) (no date) (unknown) Walk-In (no value) (units (unk nown) [facility] unknown[facility] Result panel 40 (unknown) (no date) (unknown) Walk-In (no value) (units (unk nown) [facility] unknown[facility] Result panel 41 (unknown) (no date) (unknown) Walk-In (no value) (units ([facility] nown) [facility] unknown[facility] Result panel 42 (unknown) (no date) (unknown) Walk-In (no value) (units ([facility] nown) [facility] unknown[facility] Result panel 43 (unknown) (no date) (unknown) Walk-In (no value) (units (unk nown) [facility] unknown[facility] Result panel 44 (unknown) (no date) (unknown) Walk-In (no value) (units ([facility] nown) [facility] unknown[facility] Result panel 45 (unknown) (no date) (unknown) Walk-In (no value) (units (unk nown) [facility] unknown[facility] Result panel 46 (unknown) (no date) (unknown) Walk-In (no value) (units (unk nown) [facility] unknown[facility] Result panel 47 (unknown) (no date) (unknown) Walk-In (no value) (units (unk nown) [facility] unknown[facility] Result panel 48 (unknown) (no date) (unknown) Walk-In (no value) (units (unk nown) [facility] unknown[facility] Result panel 49 (unknown) (no date) (unknown) Walk-In (no value) (units (unk nown) [facility] Result panel 50 (unknown) (no date) (unknown) Walk-In (no value) (units (unk nown) [facility] Result panel 51 (unknown) (no date) (unknown) Walk-In (no value) (units ([facility] nown) [facility] Result panel 52 (unknown) (no date) (unknown) Walk-In (no value) (units (unk nown) [facility] unknown[facility] Result panel 53 (unknown) (no date) (unknown) Walk-In (no value) (units (unk nown) [facility] Result panel 54 (unknown) (no date) (unknown) Walk-In (no value) (units (unk nown) [facility] Result panel 55 (unknown) (no date) (unknown) Walk-In (no value) (units (unk nown) [facility] Result panel 56 (unknown) (no date) (unknown) Walk-In (no value) (units (unk nown) [facility] Result panel 57 (unknown) (no date) (unknown) Walk-In (no value) (units (unk nown) [facility] Result panel 58 (unknown) (no date) (unknown) Walk-In (no value) (units (unk nown) [facility] Result panel 59 (unknown) (no date) (unknown) Walk-In (no value) (units (unk nown) [facility] Result panel 60 (unknown) (no date) (unknown) Walk-In (no value) (units (unk nown) [facility] Result panel 61 (unknown) (no date) (unknown) Walk-In (no value) (units (unk nown[facility] Result panel 62 (unknown) (no date) (unknown) Walk-In (no value) (units (unk nown) [facility] Result panel 63 (unknown) (no date) (unknown) Walk-In (no value) (units (unk nown) [facility] Result panel 64 (unknown) (no date) (unknown) Walk-In (no value) (units (unk nown) [facility] unknown[facility] Result panel 65 (unknown) (no date) (unknown) Walk-In (no value) (units (unk nown[facility] unknown[facility] Social History No information. Vital Signs No information.
[2022-07-08] MEDS ORDERED: cefTRIAXone 1 GM in SODIUM CHLORIDE 0.9% MINIBAG 100 ML IV STA (16:46)
[2022-07-08] MEDS ORDERED: SODIUM CHLORIDE 0.9% 1,000 ML IV STA (16:46)
[2022-07-08 17:04] LABS: BASOPHILS % (AUTO) 0.2 %; EOSINOPHILS % (AUTO) 0.3 %; HCT - HEMATOCRIT 41.8 % (42.0-52.0); HGB - HEMOGLOBIN 14.1 g/dL (14.0-18.0); LYMPHOCYTES # (AUTO) 1.2 10^3/uL (1.5-3.5); LYMPHOCYTES % (AUTO) 9.6 %; MEAN CORPUSCULAR HGB CONC 33.7 g/dL (32.0-36.0); MEAN CORPUSCULAR VOLUME 97.9 fL (80.0-94.0); MONOCYTES # (AUTO) 1.3 10^3/uL (0.0-1.0); MONOCYTES % (AUTO) 10.4 %; NEUTROPHILS # (AUTO) 10.1 10^3/uL (1.5-6.6); PLT - PLATELET COUNT 191 10^3/uL (130-450); RED BLOOD COUNT 4.27 10^6/uL (4.70-6.10); RED CELL DISTRIBUTION WIDTH 13.3 % (12.0-15.0); WHITE BLOOD COUNT 12.8 x10^3/uL (4.8-10.8)
--- NOTE | 2022-07-08 17:10 | ED Physician Documentation ---
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 This is the fourth time that Chris has had an issue with cloudy urine and cloudy thinking. His noted last night that he seemed a bit drifting and she noted the cloudiness to his urine. The patient has not had fever he does have some pain in the left lower abdomen. Review of Systems Constitutional: denies: Fever Ears: denies: Ear pain Nose: denies: Congestion Throat: denies: Sore throat Cardiac: denies: Chest pain / pressure, Palpitations Respiratory: denies: Dyspnea, Cough GI: reports: Abdominal Pain. denies: Nausea, Vomiting, Constipation, Diarrhea : reports: Victoria Problem (cloudy dark urine). denies: Dysuria Musculoskeletal: denies: Neck pain, Back pain, Extremity pain Neurologic: reports: Focal weakness (Lower ext bilat), Numbness (below the chest normal). denies: Generalized weakness PD PAST MEDICAL HISTORY - Past Medical History Cardiovascular: Hypertension, High cholesterol Respiratory: None Neuro: None Endocrine/Autoimmune: None GI: GERD, Colon polyps : Benign prostate hypertrophy, Frequency HEENT: Dental implants Psych: Claustrophobia Musculoskeletal: Osteoarthritis, Chronic back pain Derm: None - Past Surgical History Past Surgical History: Yes General: Colonoscopy Ortho: Hip replacement, Shoulder arthroplasty, Arthroscopic surgery, Other HEENT: Cataracts - Present Medications Home Medications: Ambulatory Orders Medication Instructions Recorded Confirmed Lisinopril 10 mg PO DAILY 01/14/14 07/30/21 Omeprazole 20 mg PO QDAC 01/14/14 07/30/21 Citalopram Hydrobromide [Celexa] 20 mg PO DAILY 07/17/17 07/30/21 Trazodone HCl 100 mg PO QPM 07/17/17 07/30/21 HYDROcodone/ACET 7.5/325 [[place] 1 tab PO Q4HR PRN #60 tablet 07/20/17 07/30/21 7.5/325] Albuterol Sulf [Ventolin Hfa 1 - 2 puffs INH Q4HR PRN #1 inhaler 05/20/21 07/30/21 Inhaler] Benzonatate [Tessalon] 200 mg PO QID PRN #20 cap 07/30/21 Carbamazepine [Equetro] 100 mg PO BID 07/30/21 07/30/21 Doxycycline Hyclate 100 mg PO BID #14 tab.sr 07/30/21 Gabapentin [Neurontin] 400 mg PO QID 07/30/21 07/30/21 Magnesium Oxide [Magnesium] 400 mg PO DAILY 07/30/21 07/30/21 Mecobalamin [B12 Active] 1,000 mg PO DAILY 07/30/21 07/30/21 guaiFENesin/CODEINE [Robitussin AC] 5 - 10 ml PO Q6H PRN #120 ml 07/30/21 predniSONE [Deltasone] 60 mg PO DAILY 5 Days #15 tablet 07/30/21 cephALEXin [Keflex] 500 mg PO Q6H #20 cap 11/21/21 levoFLOXacin [Levofloxacin] 750 mg PO DAILY #5 tablet 12/16/21 Ciprofloxacin HCl [Cipro] 500 mg PO BID #14 tablet 07/08/22 - Allergies Allergies/Adverse Reactions: Allergies Allergy/AdvReac Type Severity Reaction Status Date / Time No Known Drug Allergies Allergy Verified 07/08/22 16:10 - Social History Does the pt smoke?: No Smoking Status: Never smoker Does the pt drink ETOH?: No Does the pt have substance abuse?: No - Immunizations Immunizations are current?: Yes - POLST Patient has POLST: No PD ED PE NORMAL - Vitals Vital signs reviewed: Yes (hypertensive mild ) - General General: Alert and oriented X 3, No acute distress, Well developed/nourished - HEENT HEENT: Atraumatic, PERRL, EOMI - Cardiac Cardiac: RRR, No murmur - Respiratory Respiratory: No respiratory distress, Clear bilaterally - Abdomen Abdomen: Normal bowel sounds, Soft, Non tender, Non distended, No organomegaly, Other (cannot reproduce tenderness patient states pain is gone. ) - Back Back: No CVA TTP, No spinal TTP - Derm Derm: Normal color, Warm and dry, No rash - Extremities Extremities: No deformity, Other (pitting edema to the LE bilaterally) - Neuro Neuro: Alert and oriented X 3, hop separator 2-12 intact, Normal speech Eye Opening: Spontaneous Motor: Obeys Commands Verbal: Oriented GCS Score: 15 - Psych Psych: Normal mood, Normal affect Results - Vitals Vitals: Vital Signs - 24 hr 07/08/22 16:05 Temperature 36.8 C Heart Rate 73 Respiratory 18 Rate Blood Pressure 132/65 H O2 Saturation 94 Oxygen O2 Source Room air - Labs Labs: Laboratory Tests 07/08/22 07/08/22 07/08/22 16:53 16:53 17:21 WBC 12.8 H RBC 4.27 L Hgb 14.1 Hct 41.8 L MCV 97.9 H MCH 33.0 H MCHC 33.7 RDW 13.3 Plt Count 191 MPV 8.0 Neut # (Auto) 10.1 H Lymph # (Auto) 1.2 L [place] # (Auto) 1.3 H Eos # (Auto) 0.0 Baso # (Auto) 0.0 Absolute Nucleated RBC 0.00 Nucleated RBC % 0.0 Sodium 128 L Potassium 4.0 Chloride 94 L Carbon Dioxide 23 Anion Gap 11.0 BUN 7 Creatinine 0.6 Estimated GFR (MDRD) 131 Glucose 116 H Calcium 8.8 Total Bilirubin 1.1 H AST 16 ALT 27 Alkaline Phosphatase 50 Total Protein 7.0 Albumin 3.9 Globulin 3.1 Albumin/Globulin Ratio 1.3 Lipase 28 Urine Color YELLOW Urine Clarity CLOUDY Urine pH 6.5 Ur Specific [place]onna 1.010 Urine Protein TRACE Urine Glucose (UA) NEGATIVE Urine Ketones NEGATIVE Urine Occult Blood LARGE H Urine Nitrite POSITIVE H Urine Bilirubin NEGATIVE Urine Urobilinogen 0.2 (NORMAL) Ur Leukocyte Esterase LARGE H Urine RBC 11-25 H Urine WBC >25 H Ur Squamous Epith Cells NONE SEEN Urine Bacteria Many H Ur Microscopic Review INDICATED Urine Culture Comments INDICATED PD Medical Decision Making - ED course Complexity details: considered differential, d/w patient, d/w family ED course: 76-year-old male withTransverse myelitis and an indwelling Victoria catheter appears to have evidence of infection and he is administered a liter of saline and Rocephin intravenously we will place him back onto some Cipro. He has grown E. coli that was sensitive he has grown Pseudomonas previously and this is thought to be likely a colonization. Departure - Departure Disposition: 01 Home, Self Care Clinical Impression: Urinary tract infection Qualifiers: Urinary tract infection type: catheter-associated UTI Indwelling urinary catheter type: cystostomy catheter Encounter type: initial encounter Qualified Code(s): T83.510A - Infection and inflammatory reaction due to cystostomy catheter, initial encounter Instructions: ED UTI Cystitis Male Follow-Up: BROOKE WAGGONER PA [Primary Care Provider] - Prescriptions: Ciprofloxacin HCl [Cipro] 500 mg PO BID #14 tablet Comments: Chris today it looks like you have another urinary tract infection and are symptomatic with it. We are treating this today with ciprofloxacin and I have E scribed this to the [facility] in [place]. Today you were given an injection of Rocephin which is generally good for about 24 hours.
[2022-07-08 17:17] LABS: ALBUMIN 3.9 g/dL (3.2-5.5); ALBUMIN/GLOBULIN RATIO 1.3 (1.0-2.2); BILIRUBIN,TOTAL 1.1 mg/dL (0.2-1.0); CALCIUM 8.8 mg/dL (8.5-10.3); CREATININE 0.6 mg/dL (0.6-1.2)
[2022-07-08 17:31] LABS: BILIRUBIN,URINE NEGATIVE (NEGATIVE); GLUCOSE, URINE (UA) NEGATIVE (NEGATIVE); KETONES,URINE (UA) NEGATIVE (NEGATIVE); LEUKOCYTE ESTERASE, URINE LARGE (NEGATIVE); NITRITE,URINE POSITIVE (NEGATIVE); OCCULT BLOOD,URINE LARGE (NEGATIVE); PH,URINE 6.5 PH (5.0-7.5); PROTEIN,URINE TRACE mg/dL (NEGATIVE); UROBILINOGEN,URINE 0.2 (NORMAL) E.U./dL (NORMAL)
[2022-07-08 17:33] LABS: CLARITY,URINE CLOUDY (CLEAR)
[2022-07-08 17:39] LABS: BACTERIA,URINE Many /HPF (None Seen); SQUAMOUS EPITHELIAL CELL,UR NONE SEEN (<= Few); WBC,URINE >25 /HPF (0-3)
== END 2022-07-08 18:34 | disposition home or self-care (01) ==
LOC: ED 16:00
DX: T83.510A Infection and inflammatory reaction due to cystostomy catheter, initial encounter (principal)
CPT/HCPCS: 36415; 80053; 81001; 81003; 83690; 85025; 87077; 87086; 87181; 96365; 99283

== ENCOUNTER 2022-09-06 12:25 | Outpatient (CLI) | payer MEDICARE, OTHER ==
--- NOTE | 2022-09-06 17:35 | MRI Report ---
PROCEDURE: BRAIN WO INDICATIONS: DEMYELINATING DISEASE TECHNIQUE: Noncontrast axial T1 spin echo, axial T2 fast spin echo, sagittal and axial FLAIR, coronal T2 fast sp in echo, axial gradient echo, axial diffusion and ADC through the brain. COMPARISON: Correlation is made with the accompanying cervical and thoracic spine MRI examinations, 09/06/2022. FINDINGS: Image quality: Excellent. CSF Spaces: Basal cisterns are patent. No extra-axial fluid collections. Ventricles are normal in size and shape. Brain: A few scattered foci of T2-weighted hyperintensity can be seen within the periventricular and deep white matter. No definite involvement of the corpus callosum can be seen. No intracranial masses or hemorrhage. Desai/white matter interface is normal. Brainstem appears norm al. Diffusion-weighted images demonstrate no acute ischemic insult. No chronic ischemic insults. N ormal intravascular flow voids are present. Age-appropriate brain parenchymal volume loss can be see n. Skull and face: Calvarium has normal marrow signal. Orbits appear normal. Incidental note is made of bilateral lens replacements. Sinuses: Sinuses and mastoids are clear. IMPRESSION: T2 hyperintense white matter lesions can be seen, which have an appearance most likely related to age -appropriate chronic small vessel ischemic change. A demyelinating process (including multiple sclerosis) is considered to be much less likely based upo n imaging appearance. Additional findings: Age-appropriate brain parenchymal volume loss Bilateral lens replacements Reviewed by: Mike Cage MD on 09/06/2022 4:34 PM AKGRACE Approved by: Mike Cage MD on 09/06/2022 4:34 PM AKDT Station ID: [id number]
--- NOTE | 2022-09-06 17:57 | MRI Report ---
PROCEDURE: MRI cervical spine without contrast INDICATIONS: DEMYELINATING DISEASE TECHNIQUE: Noncontrast sagittal T1 spin echo and T2 fast spin echo, sagittal STIR, foraminal oblique sagittal T2 fast spin echo, and axial gradient echo or T2 fast spin echo through the cervical spine. COMPARISON: None. FINDINGS: Image quality: Excellent. Alignment and Curvature: There is normal bony alignment. Bone Marrow: Marrow demonstrates normal overall signal. Spinal Cord: Visualized spinal cord has normal size and signal. No cerebellar tonsillar herniation. Paraspinous Soft Tissues: No paravertebral masses. Prevertebral soft tissues are normal in thicknes s. C2-C3: Normal in appearance. C3-C4: Disc height is preserved. Hypertrophic left facet joints results in moderate left and no rig ht foraminal stenosis. No central stenosis C4-C5: Disc space narrowing and posterior disc osteophyte complex results in mild central stenosis. Moderate bilateral foraminal stenosis C5-C6: Disc space narrowing and posterior disc osteophyte complex results in mild to moderate centra l stenosis and moderate bilateral foraminal stenosis greater on the left. C6-C7: Disc space narrowing and posterior disc osteophyte complex results in mild central stenosis. Moderate bilateral foraminal stenosis C7-T1: Normal in appearance. IMPRESSION: No evidence of intrinsic demyelinating plaque in the cervical cord Multilevel degenerative disc disease and arthropathy results in varying degrees of central and forami nal stenosis as above Reviewed by: Darrick Benitez MD on 09/06/2022 4:56 PM AWILDA Approved by: Darrick Benitez MD on 09/06/2022 4:56 PM AKGRACE Station ID: [id number]
--- NOTE | 2022-09-06 18:01 | MRI Report ---
PROCEDURE: MRI thoracic spine without contrast INDICATIONS: DEMYELINATING DISEASE TECHNIQUE: Noncontrast sagittal T1 spine echo and T2 fast spin echo, sagittal STIR, axial T1 and T2 fast spin ec ho through the thoracic spine. COMPARISON: None. FINDINGS: Image quality: Excellent. Alignment and Curvature: There is normal bony alignment. Bone Marrow: Marrow is of normal overall signal. No acute vertebral body compression fractures. Spinal Cord: Visualized spinal cord is normal in size and signal. Paraspinous Soft Tissues: No paravertebral masses. Miscellaneous: Focal central disc protrusion at the T7-8 and paracentral left disc protrusion at T8-9 present without central or foraminal stenosis IMPRESSION: No evidence of demyelinating plaque in the thoracic spine. Multilevel degenerative disc disease without significant central or foraminal stenosis Reviewed by: Darrick Benitez MD on 09/06/2022 4:59 PM AKDT Approved by: Darrick Benitez MD on 09/06/2022 4:59 PM AKDT Station ID: [id number]
== END 2022-09-06 12:26 | disposition home or self-care (01) ==
LOC: DI 12:25
PROVIDERS: ATTEND Psychiatry & Neurology Neurology
DX: G37.3 Acute transverse myelitis in demyelinating disease of central nervous system (principal); G31.89 Other specified degenerative diseases of nervous system; Z96.1 Presence of intraocular lens; M47.812 Spondylosis without myelopathy or radiculopathy, cervical region; M50.021 Cervical disc disorder at C4-C5 level with myelopathy; M50.121 Cervical disc disorder at C4-C5 level with radiculopathy; M48.02 Spinal stenosis, cervical region; M51.34 Other intervertebral disc degeneration, thoracic region

== ENCOUNTER 2022-10-13 13:55 | Emergency (ER) | payer MEDICARE, OTHER ==
--- NOTE | 2022-10-13 14:28 | ED Physician Documentation ---
PD HPI MALE - Stated complaint Stated Complaint: MALE - Chief complaint Chief Complaint: General - History obtained from History obtained from: Patient, Family ( gives details of the rash as she is primary caregive and the patient actually can't see the rash area himself.) - History of Present Illness Timing - onset: How many days ago (3) Timing - duration: Days (3) Timing - details: Abrupt onset, Still present Associated symptoms: No: Abdominal pain PD HPI MALE CONTRIB FACTORS: Other (recent IV antibiotics for victoria cath associated UTI infection. Was at [facility] daily for Ertapenem. Uri seems to clear. Was done the antiotic last dose 10/06. Now few days of quick onset and worseing rash inguinal and scrotal area. tried to call PMD office and was told to come to ER.) Similar symptoms before: Has not had sx before Recently seen: Clinic (got IV daily ERtepenem for UTI.) Review of Systems Constitutional: denies: Fever, Chills Respiratory: denies: Dyspnea, Cough GI: denies: Abdominal Pain Skin: reports: Rash PD PAST MEDICAL HISTORY - Past Medical History Cardiovascular: Hypertension, High cholesterol Respiratory: None Neuro: None Endocrine/Autoimmune: None GI: GERD, Colon polyps : Benign prostate hypertrophy, Frequency HEENT: Dental implants Psych: Claustrophobia Musculoskeletal: Osteoarthritis, Chronic back pain Derm: None - Past Surgical History Past Surgical History: Yes General: Colonoscopy Ortho: Hip replacement, Shoulder arthroplasty, Arthroscopic surgery, Other HEENT: Cataracts - Present Medications Home Medications: Ambulatory Orders Medication Instructions Recorded Confirmed Lisinopril 10 mg PO DAILY 01/14/14 07/30/21 Omeprazole 20 mg PO QDAC 01/14/14 07/30/21 Citalopram Hydrobromide [Celexa] 20 mg PO DAILY 07/17/17 07/30/21 Trazodone HCl 100 mg PO QPM 07/17/17 07/30/21 HYDROcodone/ACET 7.5/325 [[place] 1 tab PO Q4HR PRN #60 tablet 07/20/17 07/30/21 7.5/325] Albuterol Sulf [Ventolin Hfa 1 - 2 puffs INH Q4HR PRN #1 inhaler 05/20/21 07/30/21 Inhaler] Benzonatate [Tessalon] 200 mg PO QID PRN #20 cap 07/30/21 Carbamazepine [Equetro] 100 mg PO BID 07/30/21 07/30/21 Doxycycline Hyclate 100 mg PO BID #14 tab.sr 07/30/21 Gabapentin [Neurontin] 400 mg PO QID 07/30/21 07/30/21 Magnesium Oxide [Magnesium] 400 mg PO DAILY 07/30/21 07/30/21 Mecobalamin [B12 Active] 1,000 mg PO DAILY 07/30/21 07/30/21 guaiFENesin/CODEINE [Robitussin AC] 5 - 10 ml PO Q6H PRN #120 ml 07/30/21 predniSONE [Deltasone] 60 mg PO DAILY 5 Days #15 tablet 07/30/21 cephALEXin [Keflex] 500 mg PO Q6H #20 cap 11/21/21 levoFLOXacin [Levofloxacin] 750 mg PO DAILY #5 tablet 12/16/21 Ciprofloxacin HCl [Cipro] 500 mg PO BID #14 tablet 07/08/22 Clotrimazole/Betamethasone Crm 1 applic TOP BID #45 gm 10/13/22 [Lotrisone Cream] Fluconazole [Diflucan] 100 mg PO Q3D 9 Days #3 tablet 10/13/22 - Allergies Allergies/Adverse Reactions: Allergies Allergy/AdvReac Type Severity Reaction Status Date / Time No Known Drug Allergies Allergy Verified 10/13/22 14:14 - Social History Does the pt smoke?: No Smoking Status: Never smoker Does the pt drink ETOH?: No Does the pt have substance abuse?: No - Immunizations Immunizations are current?: Yes - POLST Patient has POLST: No PD ED PE NORMAL - Vitals Vital signs reviewed: Yes - General General: No acute distress, Well developed/nourished - Abdomen Abdomen: Soft, Non tender, Non distended - Derm Derm: Normal color, Warm and dry, Other (crural and scrotal redness with demarcated edges and faint speckled at edges, with uniform red base and minimal peeling of superficial skin layer at right inguinal area. Rash clinically very c/w yeast.) Results - Vitals Vitals: Vital Signs - 24 hr 10/13/22 10/13/22 14:07 16:07 Temperature 36.1 C L 36.4 C L Heart Rate 58 L 53 L Respiratory 16 18 Rate Blood Pressure 157/85 H 154/91 H O2 Saturation 96 98 Oxygen O2 Source Room air PD Medical Decision Making - ED course Complexity details: reviewed old records (recent visits for antibiotics and ti jesus of that reviewed. ), considered differential (the rash appearance is very typical yeast crurala nd scrotal infection. Some superficial skin peeling right medial upper thigh. NO deep excoriations seem. It does extend perirectal posteriorly. ), d/w patient ED course: is unfortunate perhaps that could not get just visual consult from office or such or visiting nurse as quite easily is yeast infection. She brought him here, and is doable but more inconvenient. He does have singificant yeast infection of course, so good to get it started treatment for sure. Departure - Departure Disposition: 01 Home, Self Care Clinical Impression: Tinea cruris Condition: Stable Record reviewed to determine appropriate education?: Yes Instructions: ED Tinea Cruris General Follow-Up: BROOKE WAGGONER PA [Primary Care Provider] - Prescriptions: Fluconazole [Diflucan] 100 mg PO Q3D 9 Days #3 tablet Clotrimazole/Betamethasone Crm [Lotrisone Cream] 1 applic TOP BID #45 gm Comments: This looks to be a significant yeast infection in the area. However these typically clear up fairly readily within a few days of treatment. I would use a oral antifungal of Diflucan every 3 days for up to 3 more doses if needed. It may be cleared before that. I would also use a topical combination of antifungal with anti-inflammatory. Cleanse the area at least once and preferably twice daily for the next several days to week and apply the triamcinolone/nystatin betamethasone/clotrimazole cream. Follow that with a barrier layer skin ointment. A good one can be even a diaper rash cream such as Desitin. I would anticipate improvement in this over the next several days and cleared by 3 to 5 days. Recheck if worsening. I sent your prescriptions to the [facility] in [place]. Discharge Date/Time: 10/13/22 16:21
[2022-10-13] MEDS ORDERED: NYSTATIN CREAM 15 GM TUBE TOP STA (14:49)
[2022-10-13] MEDS ORDERED: ZINC OXIDE 20% OINT 30 GM TUBE TOP STA (14:49)
[2022-10-13] MEDS ORDERED: FLUCONAZOLE 100 MG TABLET PO STA (14:49)
--- OUTSIDE RECORDS SUMMARY | 2022-10-13 14:50 | EXTERNAL MEDICAL SUMMARY RPT | Continuity of Care Document ---
Author Name Unknown Address [address] [place] [address] Phone Organization [facility] Address [address] [place] [address] Phone Care Team Providers Care Lean Consultant Name Role Phone System Maintenance Unavailable Unavailable Medications date description facility 2022-10-03 00:00 PENTOXIFYLLINE All 2022-08-25 00:00 citalopram All 2022-10-03 00:00 hydrocodone-acetaminophen All 2022-09-30 00:00 omeprazole All 2022-08-25 00:00 citalopram All 2022-10-03 00:00 gabapentin All 2022-10-03 00:00 PENTOXIFYLLINE All 2022-10-03 00:00 gabapentin All 2022-09-30 00:00 omeprazole All 2022-10-03 00:00 PENTOXIFYLLINE All 2022-08-25 00:00 citalopram All 2022-08-25 00:00 citalopram All 2022-10-03 00:00 gabapentin All 2022-09-30 00:00 omeprazole All 2022-09-30 00:00 omeprazole All 2022-10-03 00:00 hydrocodone-acetaminophen All 2022-10-03 00:00 gabapentin All 2022-10-03 00:00 hydrocodone-acetaminophen All 2022-10-03 00:00 PENTOXIFYLLINE All 2022-10-03 00:00 hydrocodone-acetaminophen All 2022-10-03 00:00 vitamin u78-eqelm acid All
[2022-10-13] MEDS ORDERED: EMOLLIENT CREAM 57 GM TUBE TOP STA (14:51)
[2022-10-13 16:09] VITALS: BP 154/91
== END 2022-10-13 16:21 | disposition home or self-care (01) ==
LOC: ED 13:55
DX: B35.6 Tinea cruris (principal); N40.1 Benign prostatic hyperplasia with lower urinary tract symptoms; R35.0 Frequency of micturition; I10 Essential (primary) hypertension
CPT/HCPCS: 99282; 99283; A9270

== ENCOUNTER 2022-11-17 14:14 | Outpatient (CLI) | payer MEDICARE, OTHER ==
[2022-11-17 14:38] LABS: BILIRUBIN,URINE NEGATIVE (NEGATIVE); GLUCOSE, URINE (UA) NEGATIVE (NEGATIVE); KETONES,URINE (UA) NEGATIVE (NEGATIVE); LEUKOCYTE ESTERASE, URINE MODERATE (NEGATIVE); NITRITE,URINE POSITIVE (NEGATIVE); OCCULT BLOOD,URINE NEGATIVE (NEGATIVE); PROTEIN,URINE NEGATIVE (NEGATIVE); UROBILINOGEN,URINE 0.2 (NORMAL) E.U./dL (NORMAL)
[2022-11-17 14:40] LABS: CLARITY,URINE SL. CLOUDY (CLEAR)
[2022-11-17 14:53] LABS: BACTERIA,URINE Moderate /HPF (None Seen); RBC,URINE 0-5 /HPF (0-5); SQUAMOUS EPITHELIAL CELL,UR FEW Squamous (<= Few)
== END 2022-11-17 14:15 | disposition home or self-care (01) ==
LOC: LAB 14:14
PROVIDERS: ATTEND Student in an Organized Health Care Education/Training Program
DX: N39.0 Urinary tract infection, site not specified (principal)
CPT/HCPCS: 81001; 87086

== ENCOUNTER 2022-11-29 14:06 | Outpatient (CLI) | payer MEDICARE, OTHER | END 2022-11-29 23:59 | disposition critical access hospital (66) | LOC: EMS 14:06 | DX: R53.83 Other fatigue (principal); R53.1 Weakness; R39.89 Other symptoms and signs involving the genitourinary system; I95.9 Hypotension, unspecified | CPT/HCPCS: A0425; A0427 ==

== ENCOUNTER 2022-11-29 14:23 | Emergency (ER) | payer MEDICARE, OTHER ==
--- NOTE | 2022-11-29 14:27 | ED Physician Documentation ---
History of Present Illness - Stated complaint Stated Complaint: LETHARGY/GENERAL WEKANESS - History obtained from History obtained from: Patient, EMS - Additonal information Additional information: 77-year-old gentleman developed transverse myelitis few years ago and is paraplegic with neurogenic bladder related to same. Has recurrent UTIs and recently treated with antibiotics. Last urine culture on our chart was 17 November with polymicrobial growth. Finished antibiotics yesterday. Not quite sure which one as the senior php developer show me an antibiotic list with 5 antibiotics including levofloxacin, azithromycin, Macrobid, ciprofloxacin, and Rocephin. Today he is sluggish and felt warm per the without measured fevers. He feels like his brain is slow. PD PAST MEDICAL HISTORY - Past Medical History Cardiovascular: Hypertension, High cholesterol Respiratory: None Neuro: None Endocrine/Autoimmune: None GI: GERD, Colon polyps : Benign prostate hypertrophy, Frequency HEENT: Dental implants Psych: Claustrophobia Musculoskeletal: Osteoarthritis, Chronic back pain Derm: None - Past Surgical History Past Surgical History: Yes General: Colonoscopy Ortho: Hip replacement, Shoulder arthroplasty, Arthroscopic surgery, Other HEENT: Cataracts - Present Medications Home Medications: Ambulatory Orders Medication Instructions Recorded Confirmed Lisinopril 10 mg PO DAILY 01/14/14 07/30/21 Omeprazole 20 mg PO QDAC 01/14/14 07/30/21 Citalopram Hydrobromide [Celexa] 20 mg PO DAILY 07/17/17 07/30/21 Trazodone HCl 100 mg PO QPM 07/17/17 07/30/21 HYDROcodone/ACET 7.5/325 [[place] 1 tab PO Q4HR PRN #60 tablet 07/20/17 07/30/21 7.5/325] Albuterol Sulf [Ventolin Hfa 1 - 2 puffs INH Q4HR PRN #1 inhaler 05/20/21 07/30/21 Inhaler] Benzonatate [Tessalon] 200 mg PO QID PRN #20 cap 07/30/21 Carbamazepine [Equetro] 100 mg PO BID 07/30/21 07/30/21 Doxycycline Hyclate 100 mg PO BID #14 tab.sr 07/30/21 Gabapentin [Neurontin] 400 mg PO QID 07/30/21 07/30/21 Magnesium Oxide [Magnesium] 400 mg PO DAILY 07/30/21 07/30/21 Mecobalamin [B12 Active] 1,000 mg PO DAILY 07/30/21 07/30/21 guaiFENesin/CODEINE [Robitussin AC] 5 - 10 ml PO Q6H PRN #120 ml 07/30/21 predniSONE [Deltasone] 60 mg PO DAILY 5 Days #15 tablet 07/30/21 levoFLOXacin [Levofloxacin] 750 mg PO DAILY #5 tablet 12/16/21 Clotrimazole/Betamethasone Crm 1 applic TOP BID #45 gm 10/13/22 [Lotrisone Cream] Fluconazole [Diflucan] 100 mg PO Q3D 9 Days #3 tablet 10/13/22 - Allergies Allergies/Adverse Reactions: Allergies Allergy/AdvReac Type Severity Reaction Status Date / Time No Known Drug Allergies Allergy Verified 11/29/22 14:30 - Social History Does the pt smoke?: No Smoking Status: Never smoker Does the pt drink ETOH?: No Does the pt have substance abuse?: No - Immunizations Immunizations are current?: Yes - POLST Patient has POLST: No PD ED PE NORMAL - Vitals Vital signs reviewed: Yes - General General: Alert and oriented X 3, No acute distress, Other (He is alert and oriented to person and place and time, but not a great historian for recent events.) - HEENT HEENT: PERRL, EOMI - Neck Neck: Supple, no meningeal sign, No bony TTP - Cardiac Cardiac: RRR, No murmur - Respiratory Respiratory: No respiratory distress, Clear bilaterally - Abdomen Abdomen: Non tender - Male Male : Other (Catheter in place with fairly clear urine) - Neuro Neuro: Alert and oriented X 3 Eye Opening: Spontaneous Motor: Obeys Commands Verbal: Confused (Slight) GCS Score: 14 Results - Vitals Vitals: Vital Signs - 24 hr 11/29/22 11/29/22 11/29/22 14:28 14:30 16:43 Temperature 36.8 C Heart Rate 69 60 Respiratory 19 18 18 Rate Blood Pressure 103/63 O2 Saturation 94 95 11/29/22 11/29/22 11/29/22 16:50 17:14 18:25 Temperature Heart Rate 62 66 67 Respiratory 16 17 18 Rate Blood Pressure 150/91 H O2 Saturation 94 95 94 11/29/22 18:43 Temperature Heart Rate 68 Respiratory 18 Rate Blood Pressure 161/88 H O2 Saturation Oxygen O2 Source Room air - EKG (time done) 1437 EKG releavant findings:: EKG personally interpreted by author of this note. Relevant findings are: Rate: Rate (enter#) (58) Rhythm: NSR Perry: Normal Intervals: Normal MI QRS: Normal Ischemia: Normal ST segments - Labs Labs: Laboratory Tests 11/29/22 11/29/22 11/29/22 14:30 14:30 14:41 WBC 5.5 RBC 4.31 L Hgb 14.2 Hct 41.5 L MCV 96.3 H MCH 32.9 H MCHC 34.2 RDW 13.2 Plt Count 183 MPV 7.9 Neut # (Auto) 3.2 Lymph # (Auto) 1.6 [place] # (Auto) 0.6 Eos # (Auto) 0.1 Baso # (Auto) 0.0 Absolute Nucleated RBC 0.00 Nucleated RBC % 0.0 Sodium Potassium Chloride Carbon Dioxide Anion Gap BUN Creatinine Estimated GFR (MDRD) Glucose Lactic Acid Calcium Magnesium Total Bilirubin AST ALT Alkaline Phosphatase Total Protein Albumin Globulin Albumin/Globulin Ratio Urine Color YELLOW Urine Clarity CLEAR Urine pH 7.5 Ur Specific [place] 1.015 Urine Protein NEGATIVE Urine Glucose (UA) NEGATIVE Urine Ketones NEGATIVE Urine Occult Blood NEGATIVE Urine Nitrite NEGATIVE Urine Bilirubin NEGATIVE Urine Urobilinogen 0.2 (NORMAL) Ur Leukocyte Esterase TRACE H Urine RBC None Seen Urine WBC 6-10 H Ur Squamous Epith Cells FEW Squamous Urine Bacteria Few Urine Mucus Few Strands Urine Culture Comments INDICATED Urine Opiates Screen POSITIVE H Ur Oxycodone Screen NEGATIVE Urine Methadone Screen NEGATIVE Ur Propoxyphene Screen NEGATIVE Ur Barbiturates Screen NEGATIVE Ur Tricyclics Screen NEGATIVE Ur Phencyclidine Scrn NEGATIVE Ur Amphetamine Screen NEGATIVE U Methamphetamines Scrn NEGATIVE U Benzodiazepines Scrn NEGATIVE Urine Cocaine Screen NEGATIVE U Cannabinoids Screen POSITIVE H Ethyl Alcohol 11/29/22 11/29/22 11/29/22 14:41 14:41 14:41 WBC RBC Hgb Hct MCV MCH MCHC RDW Plt Count MPV Neut # (Auto) Lymph # (Auto) [place] # (Auto) Eos # (Auto) Baso # (Auto) Absolute Nucleated RBC Nucleated RBC % Sodium 130 L Potassium 4.0 Chloride 95 L Carbon Dioxide 25 Anion Gap 10.0 BUN 13 Creatinine 0.7 Estimated GFR (MDRD) 110 Glucose 103 H Lactic Acid Calcium 8.3 L Magnesium 2.1 Total Bilirubin 0.6 AST 19 ALT 30 Alkaline Phosphatase 45 Total Protein 6.1 L Albumin 3.3 Globulin 2.8 Albumin/Globulin Ratio 1.2 Urine Color Urine Clarity Urine pH Ur Specific [place] Urine Protein Urine Glucose (UA) Urine Ketones Urine Occult Blood Urine Nitrite Urine Bilirubin Urine Urobilinogen Ur Leukocyte Esterase Urine RBC Urine WBC Ur Squamous Epith Cells Urine Bacteria Urine Mucus Urine Culture Comments Urine Opiates Screen Ur Oxycodone Screen Urine Methadone Screen Ur Propoxyphene Screen Ur Barbiturates Screen Ur Tricyclics Screen Ur Phencyclidine Scrn Ur Amphetamine Screen U Methamphetamines Scrn U Benzodiazepines Scrn Urine Cocaine Screen U Cannabinoids Screen Ethyl Alcohol < 5.0 11/29/22 14:47 WBC RBC Hgb Hct MCV MCH MCHC RDW Plt Count MPV Neut # (Auto) Lymph # (Auto) [place] # (Auto) Eos # (Auto) Baso # (Auto) Absolute Nucleated RBC Nucleated RBC % Sodium Potassium Chloride Carbon Dioxide Anion Gap BUN Creatinine Estimated GFR (MDRD) Glucose Lactic Acid 1.4 Calcium Magnesium Total Bilirubin AST ALT Alkaline Phosphatase Total Protein Albumin Globulin Albumin/Globulin Ratio Urine Color Urine Clarity Urine pH Ur Specific [place] Urine Protein Urine Glucose (UA) Urine Ketones Urine Occult Blood Urine Nitrite Urine Bilirubin Urine Urobilinogen Ur Leukocyte Esterase Urine RBC Urine WBC Ur Squamous Epith Cells Urine Bacteria Urine Mucus Urine Culture Comments Urine Opiates Screen Ur Oxycodone Screen Urine Methadone Screen Ur Propoxyphene Screen Ur Barbiturates Screen Ur Tricyclics Screen Ur Phencyclidine Scrn Ur Amphetamine Screen U Methamphetamines Scrn U Benzodiazepines Scrn Urine Cocaine Screen U Cannabinoids Screen Ethyl Alcohol - Rads (name of study) Single view chest x-ray shows no acute disease. Relevant Findings:: Final report received, EMP independent interpretation of test CT of the head is unremarkable Relevant Findings:: Final report received, EMP independent interpretation of test PD Medical Decision Making - ED course ED course: 77-year-old gentleman presents with encephalopathy. He has had issues like this with UTIs in the past but his urine is relatively unremarkable with only small leukocyte esterase and a few white cells. He has a Handy catheter chronically in place related to his chronic transverse myelitis with functional paraplegia with neurogenic bladder. I am not sure this urinalysis would really be consistent with infection, and his last culture was polymicrobial growth suggesting colonization as opposed to infection. He did have cannabis on board but patient and state that his use is chronic and not changed. Thing that really did changes that for 10 days he was off of his magnesium And citalopram while on antibiotics and she gave him a double dose this morning to compensate for restarting them. So my suspicion is that his encephalopathy was related to the double dose of citalopram this morning. Observation in the hospital was offered but declined by patient and . Departure - Departure Disposition: 01 Home, Self Care Clinical Impression: Encephalopathy Condition: Good Record reviewed to determine appropriate education?: Yes Comments: As discussed, his blood work is relatively normal, urine has just a few white cells that I do not think represents an infection and a CT of the head and X-ray of the chest were normal. My suspicion is that the confusion today was due to the double dose of his antidepressant and should wear off overnight. Do not double dose antidepressants in the future when restarting them. Return for new or worsening symptoms. Follow-up with your primary care physician and discuss this ED visit later this week or early next week.
--- NOTE | 2022-11-29 14:51 | XRAY Report ---
PROCEDURE: Chest 1 View X-Ray INDICATIONS: fever TECHNIQUE: One view of the chest was acquired. COMPARISON: None. FINDINGS: Surgical changes and devices: None. Lungs and pleura: No pleural effusions or pneumothorax. Lungs are clear. Mediastinum: Mediastinal contours appear normal. Heart size is normal. Bones and chest wall: No suspicious bony lesions. Overlying soft tissues appear unremarkable. IMPRESSION: No acute cardiopulmonary process. Reviewed by: Britton Cruz on 11/29/2022 1:50 PM AWILDA Approved by: Britton Cruz on 11/29/2022 1:50 PM AKDT Station ID: [id number]
[2022-11-29 14:53] LABS: BASOPHILS % (AUTO) 0.4 %; EOSINOPHILS # (AUTO) 0.1 10^3/uL (0.0-0.7); EOSINOPHILS % (AUTO) 1.3 %; HCT - HEMATOCRIT 41.5 % (42.0-52.0); HGB - HEMOGLOBIN 14.2 g/dL (14.0-18.0); LYMPHOCYTES # (AUTO) 1.6 10^3/uL (1.5-3.5); LYMPHOCYTES % (AUTO) 29.9 %; MEAN CORPUSCULAR HEMOGLOBIN 32.9 pg (27.0-31.0); MEAN CORPUSCULAR HGB CONC 34.2 g/dL (32.0-36.0); MEAN CORPUSCULAR VOLUME 96.3 fL (80.0-94.0); MEAN PLATELET VOLUME 7.9 fL (7.4-11.4); MONOCYTES # (AUTO) 0.6 10^3/uL (0.0-1.0); NEUTROPHILS # (AUTO) 3.2 10^3/uL (1.5-6.6); NEUTROPHILS % (AUTO) 58.2 %; PLT - PLATELET COUNT 183 10^3/uL (130-450); RED BLOOD COUNT 4.31 10^6/uL (4.70-6.10); RED CELL DISTRIBUTION WIDTH 13.2 % (12.0-15.0); WHITE BLOOD COUNT 5.5 x10^3/uL (4.8-10.8)
[2022-11-29 15:06] LABS: ALBUMIN 3.3 g/dL (3.2-5.5); ALBUMIN/GLOBULIN RATIO 1.2 (1.0-2.2); BILIRUBIN,TOTAL 0.6 mg/dL (0.2-1.0); CALCIUM 8.3 mg/dL (8.5-10.3); CREATININE 0.7 mg/dL (0.6-1.2); TOTAL PROTEIN 6.1 g/dL (6.7-8.2)
--- OUTSIDE RECORDS SUMMARY | 2022-11-29 15:26 | EXTERNAL MEDICAL SUMMARY RPT | Continuity of Care Document ---
Author Name Unknown Address [address] [place] [address] Phone Organization [facility] Address [address] [place] [address] Phone Care Team Providers Care Gate Mortiser Operator Name Role Phone System Maintenance Unavailable Unavailable Medications date description facility 2022-10-03 00:00 PENTOXIFYLLINE All 2022-10-03 00:00 hydrocodone-acetaminophen All 2022-09-30 00:00 omeprazole All 2022-10-03 00:00 gabapentin All 2022-10-03 00:00 PENTOXIFYLLINE All 2022-10-03 00:00 gabapentin All 2022-09-30 00:00 omeprazole All 2022-10-03 00:00 PENTOXIFYLLINE All 2022-10-03 00:00 gabapentin All 2022-09-30 00:00 omeprazole All 2022-09-30 00:00 omeprazole All 2022-10-03 00:00 hydrocodone-acetaminophen All 2022-10-03 00:00 gabapentin All 2022-10-03 00:00 hydrocodone-acetaminophen All 2022-10-03 00:00 PENTOXIFYLLINE All 2022-10-03 00:00 hydrocodone-acetaminophen All 2022-10-03 00:00 vitamin x25-rauxs acid All
[2022-11-29 16:11] LABS: BILIRUBIN,URINE NEGATIVE (NEGATIVE); GLUCOSE, URINE (UA) NEGATIVE (NEGATIVE); KETONES,URINE (UA) NEGATIVE (NEGATIVE); LEUKOCYTE ESTERASE, URINE TRACE (NEGATIVE); NITRITE,URINE NEGATIVE (NEGATIVE); OCCULT BLOOD,URINE NEGATIVE (NEGATIVE); PH,URINE 7.5 PH (5.0-7.5); PROTEIN,URINE NEGATIVE (NEGATIVE); UROBILINOGEN,URINE 0.2 (NORMAL) E.U./dL (NORMAL)
[2022-11-29 16:13] LABS: CLARITY,URINE CLEAR (CLEAR)
[2022-11-29 16:27] LABS: BACTERIA,URINE Few /HPF (None Seen); MUCUS,URINE Few Strands; RBC,URINE None Seen /HPF (0-5); SQUAMOUS EPITHELIAL CELL,UR FEW Squamous (<= Few)
[2022-11-29 16:32] LABS: MUDS CUTOFF CONCENTRATIONS CUTOFF CONC BELOW:
[2022-11-29 16:46] LABS: THC CANNABINOID SCREEN, URINE POSITIVE (NEGATIVE)
[2022-11-29 16:47] LABS: AMPHETAMINE SCREEN,URINE NEGATIVE (NEGATIVE); BARBITURATE SCREEN,UR NEGATIVE (NEGATIVE); BENZODIAZEPINES SCREEN, URINE NEGATIVE (NEGATIVE); COCAINE SCREEN URINE NEGATIVE (NEGATIVE); METHADONE SCREEN, URINE NEGATIVE (NEGATIVE); METHAMPHETAMINES SCREEN, URINE NEGATIVE (NEGATIVE); OPIATE SCREEN, URINE POSITIVE (NEGATIVE); OXYCODONE SCREEN, URINE NEGATIVE (NEGATIVE); PROPOXYPHENE SCREEN, URINE NEGATIVE (NEGATIVE); TRICYCLIC ANTIDEPRESSANT,URINE NEGATIVE (NEGATIVE)
--- NOTE | 2022-11-29 18:02 | CT Report ---
PROCEDURE: HEAD WO INDICATIONS: ams TECHNIQUE: Noncontrast 4.5 mm thick angled axial sections acquired from the foramen magnum to the vertex. For r adiation dose reduction, the following was used: automated exposure control, adjustment of mA and/or kV according to patient size. COMPARISON: None. FINDINGS: Image quality: Excellent. CSF spaces: Basal cisterns are patent. No extra-axial fluid collections. Ventricles are normal in size and shape. Brain: No midline shift. No intracranial masses or hemorrhage. Desai-white matter interface is norm al. Subcortical and periventricular hypodensities are consistent with microvascular ischemic disease and age-related cerebral volume loss. Skull and face: Calvarium and visualized facial bones are intact, without suspicious lesions. Sinuses: Visualized sinuses and mastoids are clear. IMPRESSION: 1. No acute intracranial abnormality. 2. Microvascular ischemic disease and age-related cerebral volume loss. Reviewed by: Britton Cruz on 11/29/2022 5:01 PM AWILDA Approved by: Britton Cruz on 11/29/2022 5:01 PM AWILDA Station ID: [id number]
[2022-11-29 18:48] VITALS: BP 161/88
--- NOTE | 2022-12-02 13:01 | ED Physician Documentation ---
ED Addendum - Addendum Addendum: 12/02/22 13:00 Nursing staff has shown us the urine cultures obtained from the November 29 visit. In short this is a gentleman that has a neurogenic bladder and chronic indwelling catheter. Recent treatment for urinary tract infections. Urine culture grew staph epidermis, That showed multiple resistances. However given the evaluation in the emergency department as well as evaluation of the UA I feel this likely is a contaminant and the patient would not benefit from treatment.
== END 2022-11-29 19:11 | disposition home or self-care (01) ==
LOC: EDUNIT# → ED 14:23
DX: G93.40 Encephalopathy, unspecified (principal); I10 Essential (primary) hypertension; E78.00 Pure hypercholesterolemia, unspecified; Z79.899 Other long term (current) drug therapy
CPT/HCPCS: 36415; 70450; 71045; 80053; 80306; 81001; 83605; 83735; 85025; 87040; 87077; 87086; 87181; 93005; 99283; 99284; G0480; 80320

== ENCOUNTER 2023-01-17 14:00 | Outpatient (CLI) | payer MEDICARE, OTHER ==
--- NOTE | 2023-01-17 17:40 | XRAY Report ---
PROCEDURE: Hand 3 View BILAT INDICATIONS: BILAT 3RD FINGER PAIN TECHNIQUE: 3 views of the right and left hand(s) acquired. COMPARISON: None. FINDINGS: Bones: No acute fracture or location. There are scattered mild joint space narrowing and spurring mo st notably in the DIP joints bilaterally. Moderate right first CMC joint degeneration. Left distal ul orlin fracture deformity. No suspicious bony lesions. Soft tissues: No suspicious soft tissue calcifications or masses. IMPRESSION: No acute osseous abnormality. 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 Moderate right first CMC joint degeneration. Reviewed by: Ingrid Whitman MD on 01/17/2023 5:39 PM PDT Approved by: Ingrid Whitman MD on 01/17/2023 5:39 PM PDT Station ID: [id number]
== END 2023-01-17 23:59 | disposition home or self-care (01) ==
LOC: DI.WOS 14:00
PROVIDERS: ATTEND Physician Assistant Surgical
DX: M19.042 Primary osteoarthritis, left hand (principal); M19.041 Primary osteoarthritis, right hand; M18.11 Unilateral primary osteoarthritis of first carpometacarpal joint, right hand

== ENCOUNTER 2023-05-26 13:14 | Outpatient (CLI) | payer MEDICARE, OTHER ==
[2023-05-26 13:49] LABS: CALCIUM 9.4 mg/dL (8.5-10.3); CREATININE 0.6 mg/dL (0.6-1.3); POTASSIUM 4.3 mmol/L (3.5-4.5)
== END 2023-05-26 13:15 | disposition home or self-care (01) ==
LOC: LAB 13:14
PROVIDERS: ATTEND Psychiatry & Neurology Neurology
DX: E87.1 Hypo-osmolality and hyponatremia (principal)
CPT/HCPCS: 36415; 80048

== ENCOUNTER 2023-07-26 15:14 | Outpatient (CLI) | payer MEDICARE, OTHER ==
[2023-07-26 15:53] LABS: CALCIUM 9.4 mg/dL (8.5-10.3); CREATININE 0.6 mg/dL (0.6-1.3); POTASSIUM 4.2 mmol/L (3.5-4.5)
== END 2023-07-26 15:15 | disposition home or self-care (01) ==
LOC: LAB 15:14
PROVIDERS: ATTEND Psychiatry & Neurology Neurology
DX: G37.3 Acute transverse myelitis in demyelinating disease of central nervous system (principal)
CPT/HCPCS: 36415; 80048

== ENCOUNTER 2023-08-16 12:30 | Outpatient (CLI) | payer MEDICARE, OTHER | END 2023-08-16 12:31 | disposition critical access hospital (66) | LOC: EMS 12:30 | DX: R53.1 Weakness (principal); R50.9 Fever, unspecified | CPT/HCPCS: A0425; A0429 ==

== ENCOUNTER 2023-08-16 12:47 | Inpatient (IN) | payer MEDICARE, OTHER ==
[2023-08-16 13:30] LABS: BILIRUBIN,URINE NEGATIVE (NEGATIVE); GLUCOSE, URINE (UA) NEGATIVE (NEGATIVE); KETONES,URINE (UA) NEGATIVE (NEGATIVE); LEUKOCYTE ESTERASE, URINE MODERATE (NEGATIVE); NITRITE,URINE POSITIVE (NEGATIVE); OCCULT BLOOD,URINE SMALL (NEGATIVE); PROTEIN,URINE TRACE mg/dL (NEGATIVE); UROBILINOGEN,URINE 0.2 (NORMAL) E.U./dL (NORMAL)
[2023-08-16] MEDS: SODIUM CHLORIDE 0.9% 1,000 ML IV STA (13:32)
[2023-08-16 13:33] LABS: CLARITY,URINE SL. CLOUDY (CLEAR)
[2023-08-16 13:39] LABS: SQUAMOUS EPITHELIAL CELL,UR NONE SEEN (<= Few); WBC,URINE >25 /HPF (0-3)
[2023-08-16 13:40] LABS: BACTERIA,URINE Many /HPF (None Seen)
[2023-08-16 13:42] LABS: BASOPHILS % (AUTO) 0.2 %; HCT - HEMATOCRIT 41.4 % (42.0-52.0); LYMPHOCYTES # (AUTO) 1.1 10^3/uL (1.5-3.5); LYMPHOCYTES % (AUTO) 6.6 %; MEAN CORPUSCULAR HEMOGLOBIN 32.9 pg (27.0-31.0); MEAN CORPUSCULAR HGB CONC 33.8 g/dL (32.0-36.0); MEAN CORPUSCULAR VOLUME 97.4 fL (80.0-94.0); MEAN PLATELET VOLUME 7.9 fL (7.4-11.4); MONOCYTES % (AUTO) 6.3 %; NEUTROPHILS % (AUTO) 86.3 %; PLT - PLATELET COUNT 205 10^3/uL (130-450); RED BLOOD COUNT 4.25 10^6/uL (4.70-6.10); RED CELL DISTRIBUTION WIDTH 13.4 % (12.0-15.0); WHITE BLOOD COUNT 16.3 x10^3/uL (4.8-10.8)
--- NOTE | 2023-08-16 13:42 | XRAY Report ---
PROCEDURE: Chest 1V INDICATIONS: fever/weak TECHNIQUE: One view of the chest was acquired. COMPARISON: 11/29/2022 FINDINGS: Surgical changes and devices: None. Lungs and pleura: No pleural effusions or pneumothorax. Lungs are clear. Mediastinum: Mediastinal contours appear normal. Heart size is normal. Bones and chest wall: No suspicious bony lesions. Overlying soft tissues appear unremarkable. IMPRESSION: No acute cardiopulmonary process. Reviewed by: Jimmy Galindo MD on 08/16/2023 1:40 PM PDT Approved by: Jimmy Galindo MD on 08/16/2023 1:40 PM PDT Station ID: [id number]
--- NOTE | 2023-08-16 13:56 | ED Physician Documentation ---
History of Present Illness - Stated complaint Stated Complaint: UTI - Chief complaint Chief Complaint: General - History obtained from History obtained from: Patient, EMS, Other () - Additonal information Additional information: Patient is a 77-year-old male with a history of transverse myelitis and a chronic suprapubic catheter presenting for evaluation of weakness noted this morning by his . Patient's states that this morning he was too weak to help her get him out of bed. Therefore she called 911. She did talk his temperature this morning and on her thermometer was initially reading is normal but when EMS arrived they were getting a temperature reading of 102. She then rechecked it with hers and it was reading 101. He has not received ibuprofen or acetaminophen. They have noted that his urine has appeared more cloudy and has had more of an odor for the last 2 days. No cough, congestion, vomiting or diarrhea. Review of Systems Constitutional: reports: Fever Cardiac: denies: Chest pain / pressure Respiratory: denies: Dyspnea GI: denies: Abdominal Pain, Vomiting : denies: Hematuria PD PAST MEDICAL HISTORY - Past Medical History Past Medical History: Yes Cardiovascular: Hypertension, High cholesterol Respiratory: None Neuro: None Endocrine/Autoimmune: None GI: GERD, Colon polyps : Benign prostate hypertrophy, Frequency HEENT: Dental implants Psych: Claustrophobia Musculoskeletal: Osteoarthritis, Chronic back pain Derm: None Other Past Medical History: WHEELCHAIR BOUND... - Past Surgical History Past Surgical History: Yes General: Colonoscopy Ortho: Hip replacement, Shoulder arthroplasty, Arthroscopic surgery, Other HEENT: Cataracts - Present Medications Home Medications: Ambulatory Orders Medication Instructions Recorded Confirmed Lisinopril 10 mg PO DAILY 01/14/14 07/30/21 Omeprazole 20 mg PO QDAC 01/14/14 07/30/21 Citalopram Hydrobromide [Celexa] 40 mg PO DAILY 07/17/17 07/30/21 Trazodone HCl 100 mg PO QPM 07/17/17 07/30/21 Albuterol Sulf [Ventolin Hfa 1 - 2 puffs INH Q4HR PRN #1 inhaler 05/20/21 07/30/21 Inhaler] Carbamazepine [Equetro] 100 mg PO BID 07/30/21 07/30/21 Doxycycline Hyclate 100 mg PO BID #14 tab.sr 07/30/21 Gabapentin [Neurontin] 400 mg PO QID 07/30/21 07/30/21 Magnesium Oxide [Magnesium] 400 mg PO DAILY 07/30/21 07/30/21 Mecobalamin [B12 Active] 1,000 mg PO DAILY 07/30/21 07/30/21 guaiFENesin/CODEINE [Robitussin AC] 5 - 10 ml PO Q6H PRN #120 ml 07/30/21 Clotrimazole/Betamethasone Crm 1 applic TOP BID #45 gm 10/13/22 [Lotrisone Cream] HYDROcodone/ACET 7.5/325 [[place] 1 tab PO BID 08/16/23 7.5/325] Losartan Potassium 25 mg PO DAILY 08/16/23 - Allergies Allergies/Adverse Reactions: Allergies Allergy/AdvReac Type Severity Reaction Status Date / Time No Known Drug Allergies Allergy Verified 08/16/23 12:55 - Social History Does the pt smoke?: No Smoking Status: Never smoker Does the pt drink ETOH?: No Does the pt have substance abuse?: No - Immunizations Immunizations are current?: Yes - POLST Patient has POLST: No PD ED PE NORMAL - General General: Alert and oriented X 3, No acute distress, Well developed/nourished - HEENT HEENT: Atraumatic, Moist mucous membranes, Pharynx benign - Neck Neck: Supple, no meningeal sign - Cardiac Cardiac: RRR, Strong equal pulses - Respiratory Respiratory: No respiratory distress, Clear bilaterally - Abdomen Abdomen: Normal bowel sounds, Soft, Non tender, Non distended, Other (Suprapubic catheter, no surrounding erythema) - Male Male : Other (Dark urine in catheter bag) - Derm Derm: Warm and dry - Neuro Neuro: Alert and oriented X 3, Normal speech Results - Vitals Vitals: Vital Signs - 24 hr 08/16/23 08/16/23 08/16/23 12:52 12:55 12:57 Temperature 37.4 C 37.5 C Heart Rate 85 76 Heart Rate [ 63 Brachial] Respiratory 17 18 17 Rate Blood Pressure 151/78 H 149/74 H Blood Pressure 112/75 [Right Brachial artery] O2 Saturation 93 93 Oxygen O2 Source Room air - Labs Labs: Laboratory Tests 08/16/23 08/16/23 08/16/23 13:00 13:00 13:10 WBC RBC Hgb Hct MCV MCH MCHC RDW Plt Count MPV Neut # (Auto) Lymph # (Auto) Greer # (Auto) Eos # (Auto) Baso # (Auto) Absolute Nucleated RBC Nucleated RBC % Sodium Potassium Chloride Carbon Dioxide Anion Gap BUN Creatinine Estimated GFR (MDRD) Glucose Lactic Acid Calcium Total Bilirubin AST ALT Alkaline Phosphatase Total Protein Albumin Globulin Albumin/Globulin Ratio Lipase Urine Color YELLOW Urine Clarity SL. CLOUDY Urine pH 6.0 Ur Specific [place] 1.025 Urine Protein TRACE Urine Glucose (UA) NEGATIVE Urine Ketones NEGATIVE Urine Occult Blood SMALL H Urine Nitrite POSITIVE H Urine Bilirubin NEGATIVE Urine Urobilinogen 0.2 (NORMAL) Ur Leukocyte Esterase MODERATE H Urine RBC 6-10 H Urine WBC >25 H Ur Squamous Epith Cells NONE SEEN Urine Bacteria Many H Ur Microscopic Review INDICATED Urine Culture Comments INDICATED Nasal Adenovirus (PCR) NOT DETECTED Nasal B. parapertussis DNA (PCR) NOT DETECTED Nasal Coronavir 229E PCR NOT DETECTED Nasal Coronavir HKU1 PCR NOT DETECTED Nasal Coronavir NL63 PCR NOT DETECTED Nasal Coronavir OC43 PCR NOT DETECTED Nasal Enterovir/Rhinovir PCR NOT DETECTED Nasal Influenza B PCR NOT DETECTED Nasal Influenza A PCR NOT DETECTED Nasal Parainfluen 1 PCR NOT DETECTED Nasal Parainfluen 2 PCR NOT DETECTED Nasal Parainfluen 3 PCR NOT DETECTED Nasal Parainfluen 4 PCR NOT DETECTED Nasal RSV (PCR) NOT DETECTED Nasal B.pertussis DNA PCR NOT DETECTED Nasal C.pneumoniae (PCR) NOT DETECTED Don Human Metapneumo PCR NOT DETECTED Nasal M.pneumoniae (PCR) NOT DETECTED Nasal SARS-CoV-2 (PCR) NOT DETECTED Urine Opiates Screen POSITIVE H Ur Buprenorphine Scrn NEGATIVE Ur Oxycodone Screen NEGATIVE Urine Methadone Screen NEGATIVE Ur Barbiturates Screen NEGATIVE Ur Tricyclics Screen NEGATIVE Ur Phencyclidine Scrn NEGATIVE Ur Amphetamine Screen NEGATIVE U Methamphetamines Scrn NEGATIVE U Benzodiazepines Scrn NEGATIVE Urine Cocaine Screen NEGATIVE U Cannabinoids Screen POSITIVE H Ur Drug Screen Comment CUTOFF CONC BELOW: 08/16/23 08/16/23 08/16/23 13:12 13:32 13:50 WBC 16.3 H RBC 4.25 L Hgb 14.0 Hct 41.4 L MCV 97.4 H MCH 32.9 H MCHC 33.8 RDW 13.4 Plt Count 205 MPV 7.9 Neut # (Auto) 14.0 H Lymph # (Auto) 1.1 L Greer # (Auto) 1.0 Eos # (Auto) 0.0 Baso # (Auto) 0.0 Absolute Nucleated RBC 0.00 Nucleated RBC % 0.0 Sodium 129 L Potassium 4.0 Chloride 98 L Carbon Dioxide 25 Anion Gap 6.0 BUN 9 Creatinine 0.7 Estimated GFR (MDRD) 110 Glucose 140 H Lactic Acid Calcium 9.1 Total Bilirubin 0.7 AST 17 ALT 27 Alkaline Phosphatase 46 Total Protein 6.4 Albumin 4.0 Globulin 2.4 Albumin/Globulin Ratio 1.7 Lipase 10 L Urine Color YELLOW Urine Clarity HAZY Urine pH 7.0 Ur Specific [place] 1.020 Urine Protein 100 H Urine Glucose (UA) NEGATIVE Urine Ketones NEGATIVE Urine Occult Blood MODERATE H Urine Nitrite NEGATIVE Urine Bilirubin NEGATIVE Urine Urobilinogen 0.2 (NORMAL) Ur Leukocyte Esterase MODERATE H Urine RBC 0-5 Urine WBC >25 H Ur Squamous Epith Cells NONE SEEN Urine Bacteria Moderate H Ur Microscopic Review INDICATED Urine Culture Comments INDICATED Nasal Adenovirus (PCR) Nasal B. parapertussis DNA (PCR) Nasal Coronavir 229E PCR Nasal Coronavir HKU1 PCR Nasal Coronavir NL63 PCR Nasal Coronavir OC43 PCR Nasal Enterovir/Rhinovir PCR Nasal Influenza B PCR Nasal Influenza A PCR Nasal Parainfluen 1 PCR Nasal Parainfluen 2 PCR Nasal Parainfluen 3 PCR Nasal Parainfluen 4 PCR Nasal RSV (PCR) Nasal B.pertussis DNA PCR Nasal C.pneumoniae (PCR) Don Human Metapneumo PCR Nasal M.pneumoniae (PCR) Nasal SARS-CoV-2 (PCR) Urine Opiates Screen Ur Buprenorphine Scrn Ur Oxycodone Screen Urine Methadone Screen Ur Barbiturates Screen Ur Tricyclics Screen Ur Phencyclidine Scrn Ur Amphetamine Screen U Methamphetamines Scrn U Benzodiazepines Scrn Urine Cocaine Screen U Cannabinoids Screen Ur Drug Screen Comment 08/16/23 14:05 WBC RBC Hgb Hct MCV MCH MCHC RDW Plt Count MPV Neut # (Auto) Lymph # (Auto) Greer # (Auto) Eos # (Auto) Baso # (Auto) Absolute Nucleated RBC Nucleated RBC % Sodium Potassium Chloride Carbon Dioxide Anion Gap BUN Creatinine Estimated GFR (MDRD) Glucose Lactic Acid 1.9 Calcium Total Bilirubin AST ALT Alkaline Phosphatase Total Protein Albumin Globulin Albumin/Globulin Ratio Lipase Urine Color Urine Clarity Urine pH Ur Specific [place] Urine Protein Urine Glucose (UA) Urine Ketones Urine Occult Blood Urine Nitrite Urine Bilirubin Urine Urobilinogen Ur Leukocyte Esterase Urine RBC Urine WBC Ur Squamous Epith Cells Urine Bacteria Ur Microscopic Review Urine Culture Comments Nasal Adenovirus (PCR) Nasal B. parapertussis DNA (PCR) Nasal Coronavir 229E PCR Nasal Coronavir HKU1 PCR Nasal Coronavir NL63 PCR Nasal Coronavir OC43 PCR Nasal Enterovir/Rhinovir PCR Nasal Influenza B PCR Nasal Influenza A PCR Nasal Parainfluen 1 PCR Nasal Parainfluen 2 PCR Nasal Parainfluen 3 PCR Nasal Parainfluen 4 PCR Nasal RSV (PCR) Nasal B.pertussis DNA PCR Nasal C.pneumoniae (PCR) Don Human Metapneumo PCR Nasal M.pneumoniae (PCR) Nasal SARS-CoV-2 (PCR) Urine Opiates Screen Ur Buprenorphine Scrn Ur Oxycodone Screen Urine Methadone Screen Ur Barbiturates Screen Ur Tricyclics Screen Ur Phencyclidine Scrn Ur Amphetamine Screen U Methamphetamines Scrn U Benzodiazepines Scrn Urine Cocaine Screen U Cannabinoids Screen Ur Drug Screen Comment Procedures - General procedure General procedure: Suprapubic Catheter Change - After betadine prep and with sterile technique, previous catheter balloon was deflated and removed in its entirety and a new 20Fr catheter was inserted and attached to victoria bag without complication, balloon inflated; dark urine output PD Medical Decision Making - ED course Complexity details: reviewed results, re-evaluated patient, d/w patient, d/w family ED course: Pt is a 77 yo M with history of transverse myelitis and paraplegia with chronic suprapubic catheter presenting for evaluation of weakness, intermittent confusion and cloudy, foul smelling urine. Fever noted by medics but afebrile here. Pt is somewhat of a poor historian but does appear oriented. BC x 2, lactic, CBC, chemistries ordered. WBC 16. UA initially collected by RN from victoria bag he came with. I changed the catheter and we collected a new specimen and sent this to the lab. It is concerning for infection. Started on rocephin. Chest XR negative for PNA. Resp swab negative. Pt is weaker than his usual. Discussed with hospitalist who will admit for obs. 1450 - D/ Dr. Redman - Will admit for obs. Departure - Departure Disposition: ED Place in Observation Clinical Impression: Metabolic encephalopathy, UTI (urinary tract infection), Chronic indwelling Victoria catheter, Leukocytosis Condition: Good
[2023-08-16 14:02] LABS: BILIRUBIN,URINE NEGATIVE (NEGATIVE); GLUCOSE, URINE (UA) NEGATIVE (NEGATIVE); KETONES,URINE (UA) NEGATIVE (NEGATIVE); LEUKOCYTE ESTERASE, URINE MODERATE (NEGATIVE); NITRITE,URINE NEGATIVE (NEGATIVE); OCCULT BLOOD,URINE MODERATE (NEGATIVE); PROTEIN,URINE 100 mg/dL (NEGATIVE); UROBILINOGEN,URINE 0.2 (NORMAL) E.U./dL (NORMAL)
[2023-08-16 14:07] LABS: ALBUMIN/GLOBULIN RATIO 1.7 (1.0-2.2); BILIRUBIN,TOTAL 0.7 mg/dL (0.2-1.0); CALCIUM 9.1 mg/dL (8.5-10.3); CREATININE 0.7 mg/dL (0.6-1.3); TOTAL PROTEIN 6.4 g/dL (6.4-8.9)
[2023-08-16 14:10] LABS: CLARITY,URINE HAZY (CLEAR)
[2023-08-16 14:18] LABS: WBC,URINE >25 /HPF (0-3)
[2023-08-16 14:19] LABS: BACTERIA,URINE Moderate /HPF (None Seen); RBC,URINE 0-5 /HPF (0-5); SQUAMOUS EPITHELIAL CELL,UR NONE SEEN (<= Few)
[2023-08-16] MEDS ORDERED: cefTRIAXone 1 GM VIAL ONE (14:27)
[2023-08-16] MEDS: cefTRIAXone 1 GM in SODIUM CHLORIDE 0.9% MINIBAG 100 ML IV STA (14:29)
[2023-08-16 14:43] LABS: B. PARAPERTUSSIS- RESP PCR PAN NOT DETECTED; B. PERTUSSIS- RESP PCR PANEL NOT DETECTED; C. PNEUMONIAE- RESP PCR PANEL NOT DETECTED; CORONAVIRUS 229E-RESP PCR NOT DETECTED; CORONAVIRUS HKU1-RESP PCR NOT DETECTED; CORONAVIRUS NL63-RESP PCR NOT DETECTED; CORONAVIRUS OC43-RESP PCR NOT DETECTED; HUMAN METAPNEUMOVIRUS NOT DETECTED; INFLUENZA A- RESP PCR PANEL NOT DETECTED; INFLUENZA B - RESP PCR PANEL NOT DETECTED; M. PNEUMONIAE- RESP PCR PANEL NOT DETECTED; PARAINFLUENZA VIRUS 1 NOT DETECTED; PARAINFLUENZA VIRUS 2 NOT DETECTED; PARAINFLUENZA VIRUS 3 NOT DETECTED; PARAINFLUENZA VIRUS 4 NOT DETECTED; RHINOVIRUS/ENTEROVIRUS NOT DETECTED; RSV- RESP PCR PANEL NOT DETECTED; SARS-CoV-2 -RESP PCR PANEL NOT DETECTED
[2023-08-16] MEDS ORDERED: ONDANSETRON ODT 4 MG TABLET TL PRN (14:50)
[2023-08-16] MEDS ORDERED: ONDANSETRON 4 MG/2 ML VIAL IVP PRN (14:50)
[2023-08-16] MEDS ORDERED: SODIUM CHLORIDE FLUSH 0.9% 10 ML SYRINGE IVP PRN (14:50)
--- NOTE | 2023-08-16 15:00 | HISTORY & PHYSICAL EXAMINATION ---
Chief Complaint - Chief Complaint Chief Complaint: Confusion and lethargy History of Present Illness - Admitted From Admitted From:: Home - History Obtained From Records Reviewed: [employer] [facility] [employer] [facility] History obtained from: Dr. Rodas Exam Limitations: Patient lethargy - History of Present Illness HPI Comment/Other: Is a 77-year-old male who lives in his own home. Current primary care provider is LAURE Sevilla at the [facility]. He is disabled because of a history of transverse myelitis in 2019 operated on @ a facility in [facility] and has a chronic indwelling suprapubic catheter. He spent 3 weeks in inpatient rehab after that stay. He then stated his brother's house in [place] and an assisted living facility here ([facility]) and then went to his own home to stay with his . He was home with his by September 2019. He sees a neurologist Pavel Connell MD at the [facility]. He has frequent recurrent UTIs. His asked EMS to bring him in today because he is having increasing generalized weakness, and a change in the color of his urine and it was becoming more and more cloudy. Also starting to change the weight smelled and was becoming more more malodorous. At home she described a temperature of 102. He is usually someone that is at least able to transfer. While his mobility may be limited, he is able to sit up and then transfer on a board to his wheelchair. A caregiver comes in 2 days a week to bath him. Again transfer with a board. He can feed himself but has to help dress him. Usually gets around with a wheelchair adn he is able to self propel. He can no longer stand. He is able to reposition himself in bed. Sometimes needs help to roll over in bed. This morning he is so weak that she could not even get him to sit up. She did not give him anything for the fever. There is no cough, chest congestions, sore throat, runny nose. No abdominal pain. The emergency room he is afebrile at 37.4. Heart rate is 85. Blood pressure is 151/78. Respirations 17 and he is 93% on room air. He is awake, answering all questions, respiratory effort is even and unlabored. His may describe him as altered, but the emergency room doctor is describing alert and oriented x 3. He has moist mucosal membranes. Regular rate and rhythm. Is not in any respiratory distress. A benign abdominal exam. The emergency room doctor changed out his suprapubic catheter and checked a UA using the new bag. Sodium is 129. He is chronically hyponatremic since approximately 2020. BUN and creatinine are normal. Lactic acid is 1.9. White cell count is elevated at 16.3. In November he was 5.5. With previous admissions and 2017 through 2021 his white cell count was actually below 5000. Urinalysis before the new bag had leukocyte Estrace, red cells, white cells, bacteria and no squamous epithelial cells. Urinalysis after the change in the suprapubic catheter continues to have leukocyte Estrace, white cells and moderate bacteria. Moderate occult blood. No nitrates. Culture is indicated and will be done. Dr. Rodas, the emergency room provider, and I discussed the case. From a Milliman criteria perspective he has an elevated white cell count but otherwise normal vital signs. feels that he is altered, but ER provider describes alert and oriented x 3. Since this gentleman gets frequent UTIs, I will be placing him in observation and treating a possible urinary tract infection overnight. If his sensorium clears by tomorrow morning I plan on discharging him. History - Past Medical History Cardiovascular: reports: Hypertension, High cholesterol Respiratory: reports: Asthma (hx of acute bronchitis w bronchospasm) Neuro: reports: Other (carpal tunnel, legs weak. Memory loss mild w 02/2021) Endocrine/Autoimmune: reports: None GI: reports: GERD, Colon polyps : reports: Benign prostate hypertrophy, Retention (suprapubic cather w Adwoa Arisco 10/2019), Frequency, Other (penile fissure w victoria resulted in suprapubic cath in 10/2019) HEENT: reports: Dental implants Psych: reports: Claustrophobia Musculoskeletal: reports: Osteoarthritis, Rheumatoid arthritis (questionable. In older problems list w joint swelling. ), Chronic back pain (Was in a pain contract with local clinic. Patient asked not to use cannabis while taking opioids. Tox screen consistently testing positive for cannabis and as such clinic stopped giving him opioids 11/17. No-show for his 2022 visit and has not been seen in the clinic since for orthopedic visit ), Other (Right hand third finger trigger finger. Injected. 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 - Past Surgical History General: reports: Colonoscopy Ortho: reports: Hip replacement (bilateral), Knee replacement (bilateral), Shoulder arthroplasty (right), Arthroscopic surgery (bilateral), Spine surgery (2011 for spinal stenosis L4-L5, ), Other HEENT: reports: Cataracts - Family & Social History Family History Comment/Other: Father at age 61 of suicide. Mom at age 71 ovarian cancer also had MS. 4 brothers. Positive family history for prostate cancer, coronary artery disease with [place]. No children Living arrangement: At home Living Situation: With spouse/s.o. Social History Notes: Former smoker. Half a pack per day for 3 years. Stopped in 1970. Drinks 14 drinks a week. Smokes marijuana daily. No other history of recreational substance abuse. . Lives with his .Retired. Used to work for [employer]. They used to spend hernández in [place]. - POLST Patient has POLST: No Meds/Allgy - Home Medications Home Medications: Ambulatory Orders Medication Instructions Recorded Confirmed Lisinopril 10 mg PO DAILY 01/14/14 07/30/21 Omeprazole 20 mg PO QDAC 01/14/14 07/30/21 Citalopram Hydrobromide [Celexa] 40 mg PO DAILY 07/17/17 07/30/21 Trazodone HCl 100 mg PO QPM 07/17/17 07/30/21 Albuterol Sulf [Ventolin Hfa 1 - 2 puffs INH Q4HR PRN #1 inhaler 05/20/21 07/30/21 Inhaler] Carbamazepine [Equetro] 100 mg PO BID 07/30/21 07/30/21 Doxycycline Hyclate 100 mg PO BID #14 tab.sr 07/30/21 Gabapentin [Neurontin] 400 mg PO QID 07/30/21 07/30/21 Magnesium Oxide [Magnesium] 400 mg PO DAILY 07/30/21 07/30/21 Mecobalamin [B12 Active] 1,000 mg PO DAILY 07/30/21 07/30/21 guaiFENesin/CODEINE [Robitussin AC] 5 - 10 ml PO Q6H PRN #120 ml 07/30/21 Clotrimazole/Betamethasone Crm 1 applic TOP BID #45 gm 10/13/22 [Lotrisone Cream] HYDROcodone/ACET 7.5/325 [[place] 1 tab PO BID 08/16/23 7.5/325] Losartan Potassium 25 mg PO DAILY 08/16/23 - Allergies Allergies/Adverse Reactions: Allergies Allergy/AdvReac Type Severity Reaction Status Date / Time No Known Drug Allergies Allergy Verified 08/16/23 12:55 Review of Systems - Neurological Neurological: reports: Numbness (of hands. Thoracic numbness from nipples to below to abdomen and legs.) Exam - Vital Signs Reviewed Vital Signs: Yes Vital Signs: Vital Signs x48h Temp Pulse Resp BP Pulse Ox 08/16/23 12:57 17 08/16/23 12:55 76 17 149/74 H 94 08/16/23 12:52 37.4 C 85 17 151/78 H 93 - Physical Exam General Appearance: positive: No acute distress, Alert, Other (Absolutely jaz personality. Wild man with wild hair. Tanned skin. Well-nourished well- developed obese gentleman. Occasional forgetfulness. Cannot remember specific date of an event and cannot quite remember what happened this morning. He feels better than he did but he still a little foggy) Eyes Bilateral: positive: PERRL, EOMI ENT: positive: Other (R ear with deformity and covered with a bandage.) Neck: positive: No JVD, Stiff neck, Other (shoddy neck nodes) Respiratory: positive: No respiratory distress, Wheezes, Rales, Rhonchi, Other (occ cough produc of yellow thick phlegm) Cardiovascular: positive: Regular rate & rhythm, Systolic murmur Abdomen: positive: Non-tender, No organomegaly, Nml bowel sounds, No distention, Other (obses) Skin: positive: Warm, Dry Extremities: positive: Pedal edema (mild) Neurologic/Psychiatric: positive: Oriented x3, CN's nml (2-12). negative: Motor nml (can move legs much. jusst moves them on the bed. lifts his arms and hands to his bedside table and reaches for utensils) Conclusion/Plan - Problem List (1) Metabolic encephalopathy Conclusion/Plan: Because of his history of recurrent UTIs, we presume that his current transient episode of altered awareness is due from infection. stated he had a fever at home but none here. But he does have a white cell count is elevated. Urinalysis does show pyuria but he may be chronically colonized. Plan: Observation status Rocephin 1 g 2 L of normal saline ordered. Bag will stop Running at 2 L. Check toxicology screen Reassess in the morning to see if he can be discharged he has improvement in mental status (2) Chronic suprapubic catheter Conclusion/Plan: Because of his paraplegia due to transverse myelitis the patient had a chronic indwelling penile suprapubic catheter. This resulted in a severe ventral erosion/fissure. He ended up healing well once the Victoria was removed. The suprapubic catheter was placed by Adwoa Driver in October 2019. He has had the Victoria changed out in the ER. At this time there will be no new orders. (3) Chronic pain Conclusion/Plan: An Mane report will need to be run on this gentleman. No longer receiving opioids from our clinics. Home medications include citalopram, carbamazepine, gabapentin, trazodone for pain. Plan: Pharmacy to review and reconcile list Resume some of these medications tonight Check toxicology screen Review Miguel report Qualifiers: Chronic pain type: chronic pain syndrome Qualified Code(s): G89.4 - Chronic pain syndrome (4) Paraplegia following spinal cord injury Conclusion/Plan: He describes chronic numbness from the nipples down. Chronic forearm and hand numbness. He does have some mobility at home. Plan: PT and OT evaluation for tomorrow for discharge (5) Hypertension Conclusion/Plan: Home medications are lisinopril 10 mg daily. Plan: That will be resumed Qualifiers: Hypertension type: primary hypertension Qualified Code(s): I10 - Essential (primary) hypertension (6) Alcohol abuse Conclusion/Plan: minimal Macrocytosis on CBC. Liver function studies normal. Plan: vitamin and thiamine p.o. - Lab Results Lab results reviewed: Yes Fish Bones: 08/16/23 13:12 08/16/23 13:32 - Diagnostic Imaging Results Diagnostic Imaging Results: positive: Final report reviewed Diagnostic Imaging Results Comments: Chest x-ray without acute cardiopulmonary process - EKG Results EKG Interpreted Independently: No Core Measures - Anticipated LOS I expect patient to be DC'd or transferred within 96 hours.: Yes - DVT/VTE - Prophylaxis VTE/DVT Prophylaxis med ordered at admit?: Yes
[2023-08-16] MEDS: SODIUM CHLORIDE 0.9% 1,000 ML IV SCH (15:06)
[2023-08-16 16:05] LABS: AMPHETAMINE SCREEN,URINE NEGATIVE (NEGATIVE); BARBITURATE SCREEN,UR NEGATIVE (NEGATIVE); BENZODIAZEPINES SCREEN, URINE NEGATIVE (NEGATIVE); BUPRENORPHINE SCREEN, URINE NEGATIVE (NEGATIVE); COCAINE SCREEN URINE NEGATIVE (NEGATIVE); METHADONE SCREEN, URINE NEGATIVE (NEGATIVE); METHAMPHETAMINES SCREEN, URINE NEGATIVE (NEGATIVE); OPIATE SCREEN, URINE POSITIVE (NEGATIVE); OXYCODONE SCREEN, URINE NEGATIVE (NEGATIVE); THC CANNABINOID SCREEN, URINE POSITIVE (NEGATIVE); TRICYCLIC ANTIDEPRESSANT,URINE NEGATIVE (NEGATIVE)
[2023-08-16] MEDS: SODIUM CHLORIDE FLUSH 0.9% 10 ML SYRINGE IVP SCH (16:48)
[2023-08-16] MEDS: lisinopriL 5 MG TABLET PO STA (16:50)
[2023-08-16] MEDS: PRENATAL VITAMIN TABLET PO SCH (16:50)
[2023-08-16] MEDS: THIAMINE 100 MG TABLET PO STA (16:50)
[2023-08-16] MEDS: oxyCODONE 5 MG TABLET PO PRN (20:18)
[2023-08-16] MEDS: ACETAMINOPHEN 325 MG TABLET PO PRN (20:25)
[2023-08-17] MEDS: cefTRIAXone 2 GM in SODIUM CHLORIDE 0.9% MINIBAG 100 ML IV SCH (08:14)
[2023-08-17] MEDS: ENOXAPARIN 40 MG/0.4 ML SYRINGE SUBQ SCH (08:14)
[2023-08-17] MEDS: THIAMINE 100 MG TABLET PO SCH (08:14)
[2023-08-17] MEDS: lisinopriL 5 MG TABLET PO SCH (08:14)
--- NOTE | 2023-08-17 11:58 | PHARMACY PROGRESS NOTE ---
- Best Possible Medication History Admit Date and Time: 08/17/23 1015 Processed by: Pharmacy Medications reviewed in ED?: No Medication History completed: Yes Patient Interview: Completed Secondary Source(s): Written medication list, Spouse/Significant other, Insurance records As the person ultimately responsible for medication therapy, providers are able to order a medication from an existing home medication list in [facility] via the "Reconcile Routine" prior to Confirmation of that medication by application support developer. Such practice is discouraged except when the physician, in their clinical judgment, deems that a medical need exists for a medication without regard to previous use.
[2023-08-17] MEDS ORDERED: HYDROcod/ACETAM 7.5 MG/325 MG TABLET PO PRN (12:03)
--- NOTE | 2023-08-17 12:26 | PROVIDER PROGRESS NOTE ---
Assessment/Plan - Problem List (2) Chronic pain Qualifiers: Chronic pain type: chronic pain syndrome Qualified Code(s): G89.4 - Chronic pain syndrome (3) Hypertension Qualifiers: Hypertension type: primary hypertension Qualified Code(s): I10 - Essential (primary) hypertension - Current Meds Current Meds: Current Medications Generic Name Dose Route Start Last Admin Trade Name Freq PRN Reason Stop Dose Admin Acetaminophen 650 mg 08/16/23 14:50 08/16/23 20:25 Acetaminophen 325 Mg Tablet PO 650 mg Q4HR PRN Administration Pain 1 to 4, or Fever Enoxaparin Sodium 40 mg 08/17/23 09:00 08/17/23 08:14 Enoxaparin 40 Mg/0.4 Ml Syringe SUBQ 40 mg DAILY MALIA Administration Ceftriaxone Sodium 2 gm/ 100 mls @ 200 mls/hr 08/17/23 09:00 08/17/23 08:14 Sodium Chloride IV 200 mls/hr DAILY MALIA Administration Lisinopril 10 mg 08/17/23 09:00 08/17/23 08:14 Lisinopril 5 Mg Tablet PO 10 mg DAILY MALIA Administration Oxycodone HCl 5 mg 08/16/23 14:50 08/16/23 20:18 Oxycodone 5 Mg Tablet PO 5 mg Q4HR PRN Administration Pain 5 to 7 Multivit/Folic Acid/Iron 1 tab 08/16/23 16:00 08/17/23 08:14 Vitamin Tablet PO 1 tab DAILYWM MALIA Administration Sodium Chloride 10 ml 08/16/23 17:00 08/17/23 08:15 Sodium Chloride Flush 0.9% 10 Ml Syringe IVP 10 ml 0100,0900,1700 MALIA Administration Thiamine HCl 100 mg 08/17/23 09:00 08/17/23 08:14 Thiamine 100 Mg Tablet PO 100 mg DAILY MALIA Administration - Lab Result Fish Bone Diagrams: 08/16/23 13:12 08/16/23 13:32 - Additional Planning My Orders: My Active Orders 08/17/23 CUL, URINE [RM] Routine 08/17/23 09:00 cefTRIAXone [Rocephin] 2 gm Sodium Chloride 0.9% Minibag [Normal Saline 0.9% Minibag] 100 ml IV DAILY 08/17/23 12:03 HYDROcodone/ACET 7.5/325 [[place] 7.5/325] 1 tab PO BID PRN 08/17/23 13:00 Citalopram Hydrobromide [Celexa] 40 mg PO DAILY carBAMazepine [TEGretol] 200 mg PO DAILY 08/17/23 14:00 Gabapentin [Neurontin] 400 mg PO TID 08/17/23 21:00 carBAMazepine [TEGretol] 300 mg PO QPM traZODone [Desyrel] 300 mg PO QPM 08/18/23 05:00 BMP - BASIC METABOLIC PANEL [CHEM] DAILYLAB CBC [CBC - COMP BLD CT W/AUTO DIFF] [HEME] DAILYLAB 08/18/23 07:00 Pantoprazole [Protonix] 40 mg PO QDAC 08/19/23 05:00 BMP - BASIC METABOLIC PANEL [CHEM] DAILYLAB CBC [CBC - COMP BLD CT W/AUTO DIFF] [HEME] DAILYLAB 08/20/23 05:00 BMP - BASIC METABOLIC PANEL [CHEM] DAILYLAB CBC [CBC - COMP BLD CT W/AUTO DIFF] [HEME] DAILYLAB 08/21/23 05:00 BMP - BASIC METABOLIC PANEL [CHEM] DAILYLAB CBC [CBC - COMP BLD CT W/AUTO DIFF] [HEME] DAILYLAB 08/22/23 05:00 BMP - BASIC METABOLIC PANEL [CHEM] DAILYLAB CBC [CBC - COMP BLD CT W/AUTO DIFF] [HEME] DAILYLAB Objective Vital Signs: Vital Signs - 24 hr 08/16/23 08/16/23 08/16/23 12:52 12:55 12:57 Temperature 37.4 C 37.5 C Heart Rate 85 76 Heart Rate [ 63 Brachial] Heart Rate [ Sitting] Heart Rate [ Supine] Respiratory 17 18 17 Rate Blood Pressure 151/78 H 149/74 H Blood Pressure 112/75 [Right Brachial artery] Blood Pressure [Sitting] Blood Pressure [Supine] O2 Saturation 93 93 08/16/23 08/16/23 08/16/23 15:29 15:50 19:08 Temperature 37.2 C 38.5 C H Heart Rate 79 Heart Rate [ 77 Brachial] Heart Rate [ Sitting] Heart Rate [ Supine] Respiratory 17 17 18 Rate Blood Pressure 157/81 H Blood Pressure 137/75 H [Right Brachial artery] Blood Pressure [Sitting] Blood Pressure [Supine] O2 Saturation 96 92 08/16/23 08/16/23 08/16/23 20:22 20:55 21:27 Temperature 38.0 C H 37.0 C 37.0 C Heart Rate Heart Rate [ Brachial] Heart Rate [ Sitting] Heart Rate [ Supine] Respiratory Rate Blood Pressure Blood Pressure [Right Brachial artery] Blood Pressure [Sitting] Blood Pressure [Supine] O2 Saturation 08/17/23 08/17/23 08/17/23 00:05 04:21 07:34 Temperature 37.2 C 37.4 C 37.1 C Heart Rate Heart Rate [ 74 79 69 Brachial] Heart Rate [ Sitting] Heart Rate [ Supine] Respiratory 18 18 16 Rate Blood Pressure Blood Pressure 106/72 149/86 H 107/78 [Right Brachial artery] Blood Pressure [Sitting] Blood Pressure [Supine] O2 Saturation 93 93 95 08/17/23 09:00 Temperature Heart Rate Heart Rate [ Brachial] Heart Rate [ 76 Sitting] Heart Rate [ 72 Supine] Respiratory Rate Blood Pressure Blood Pressure [Right Brachial artery] Blood Pressure 163/93 H [Sitting] Blood Pressure 136/72 H [Supine] O2 Saturation Oxygen O2 Source Room air I&O (Last 24 Hrs): Intake and Output Totals x24h 08/15/23 08/16/23 08/17/23 23:59 23:59 23:59 Intake Total 1780 1600 Output Total 650 1375 Balance 1130 225 - Results Results: Laboratory Results WBC 16.3 x10^3/uL (4.8-10.8) H 08/16/23 13:12 RBC 4.25 10^6/uL (4.70-6.10) L 08/16/23 13:12 Hgb 14.0 g/dL (14.0-18.0) 08/16/23 13:12 Hct 41.4 % (42.0-52.0) L 08/16/23 13:12 MCV 97.4 fL (80.0-94.0) H 08/16/23 13:12 MCH 32.9 pg (27.0-31.0) H 08/16/23 13:12 MCHC 33.8 g/dL (32.0-36.0) 08/16/23 13:12 RDW 13.4 % (12.0-15.0) 08/16/23 13:12 Plt Count 205 10^3/uL (130-450) 08/16/23 13:12 MPV 7.9 fL (7.4-11.4) 08/16/23 13:12 Neut # (Auto) 14.0 10^3/uL (1.5-6.6) H 08/16/23 13:12 Lymph # (Auto) 1.1 10^3/uL (1.5-3.5) L 08/16/23 13:12 [place] # (Auto) 1.0 10^3/uL (0.0-1.0) 08/16/23 13:12 Eos # (Auto) 0.0 10^3/uL (0.0-0.7) 08/16/23 13:12 Baso # (Auto) 0.0 10^3/uL (0.0-0.1) 08/16/23 13:12 Absolute Nucleated RBC 0.00 x10^3/uL 08/16/23 13:12 Nucleated RBC % 0.0 /100WBC 08/16/23 13:12 Sodium 129 mmol/L (135-145) L 08/16/23 13:32 Potassium 4.0 mmol/L (3.5-4.5) 08/16/23 13:32 Chloride 98 mmol/L (101-111) L 08/16/23 13:32 Carbon Dioxide 25 mmol/L (21-32) 08/16/23 13:32 Anion Gap 6.0 (6-13) 08/16/23 13:32 BUN 9 mg/dL (6-20) 08/16/23 13:32 Creatinine 0.7 mg/dL (0.6-1.3) 08/16/23 13:32 Estimated GFR (MDRD) 110 (>89) 08/16/23 13:32 Glucose 140 mg/dL (74-104) H 08/16/23 13:32 Lactic Acid 1.9 mmol/L (0.5-2.2) 08/16/23 14:05 Calcium 9.1 mg/dL (8.5-10.3) 08/16/23 13:32 Total Bilirubin 0.7 mg/dL (0.2-1.0) 08/16/23 13:32 AST 17 IU/L (10-42) 08/16/23 13:32 ALT 27 IU/L (10-60) 08/16/23 13:32 Alkaline Phosphatase 46 IU/L (42-121) 08/16/23 13:32 Total Protein 6.4 g/dL (6.4-8.9) 08/16/23 13:32 Albumin 4.0 g/dL (3.2-5.5) 08/16/23 13:32 Globulin 2.4 g/dL (2.1-4.2) 08/16/23 13:32 Albumin/Globulin Ratio 1.7 (1.0-2.2) 08/16/23 13:32 Lipase 10 U/L (11-82) L 08/16/23 13:32 Urine Color YELLOW 08/16/23 13:50 Urine Clarity HAZY (CLEAR) 08/16/23 13:50 Urine pH 7.0 PH (5.0-7.5) 08/16/23 13:50 Ur Specific [place] 1.020 (1.002-1.030) 08/16/23 13:50 Urine Protein 100 mg/dL (NEGATIVE) H 08/16/23 13:50 Urine Glucose (UA) NEGATIVE mg/dL (NEGATIVE) 08/16/23 13:50 Urine Ketones NEGATIVE mg/dL (NEGATIVE) 08/16/23 13:50 Urine Occult Blood MODERATE (NEGATIVE) H 08/16/23 13:50 Urine Nitrite NEGATIVE (NEGATIVE) 08/16/23 13:50 Urine Bilirubin NEGATIVE (NEGATIVE) 08/16/23 13:50 Urine Urobilinogen 0.2 (NORMAL) E.U./dL (NORMAL) 08/16/23 13:50 Ur Leukocyte Esterase MODERATE (NEGATIVE) H 08/16/23 13:50 Urine RBC 0-5 /HPF (0-5) 08/16/23 13:50 Urine WBC >25 /HPF (0-3) H 08/16/23 13:50 Ur Squamous Epith Cells NONE SEEN (<= Few) 08/16/23 13:50 Urine Bacteria Moderate /HPF (None Seen) H 08/16/23 13:50 Ur Microscopic Review INDICATED 08/16/23 13:50 Urine Culture Comments INDICATED 08/16/23 13:50 Nasal Adenovirus (PCR) NOT DETECTED 08/16/23 13:10 Nasal B. parapertussis DNA (PCR) NOT DETECTED 08/16/23 13:10 Nasal Coronavir 229E PCR NOT DETECTED 08/16/23 13:10 Nasal Coronavir HKU1 PCR NOT DETECTED 08/16/23 13:10 Nasal Coronavir NL63 PCR NOT DETECTED 08/16/23 13:10 Nasal Coronavir OC43 PCR NOT DETECTED 08/16/23 13:10 Nasal Enterovir/Rhinovir PCR NOT DETECTED 08/16/23 13:10 Nasal Influenza B PCR NOT DETECTED 08/16/23 13:10 Nasal Influenza A PCR NOT DETECTED 08/16/23 13:10 Nasal Parainfluen 1 PCR NOT DETECTED 08/16/23 13:10 Nasal Parainfluen 2 PCR NOT DETECTED 08/16/23 13:10 Nasal Parainfluen 3 PCR NOT DETECTED 08/16/23 13:10 Nasal Parainfluen 4 PCR NOT DETECTED 08/16/23 13:10 Nasal RSV (PCR) NOT DETECTED 08/16/23 13:10 Nasal B.pertussis DNA PCR NOT DETECTED 08/16/23 13:10 Nasal C.pneumoniae (PCR) NOT DETECTED 08/16/23 13:10 Don Human Metapneumo PCR NOT DETECTED 08/16/23 13:10 Nasal M.pneumoniae (PCR) NOT DETECTED 08/16/23 13:10 Nasal SARS-CoV-2 (PCR) NOT DETECTED 08/16/23 13:10 Urine Opiates Screen POSITIVE (NEGATIVE) H 08/16/23 13:00 Ur Buprenorphine Scrn NEGATIVE (NEGATIVE) 08/16/23 13:00 Ur Oxycodone Screen NEGATIVE (NEGATIVE) 08/16/23 13:00 Urine Methadone Screen NEGATIVE (NEGATIVE) 08/16/23 13:00 Ur Barbiturates Screen NEGATIVE (NEGATIVE) 08/16/23 13:00 Ur Tricyclics Screen NEGATIVE (NEGATIVE) 08/16/23 13:00 Ur Phencyclidine Scrn NEGATIVE (NEGATIVE) 08/16/23 13:00 Ur Amphetamine Screen NEGATIVE (NEGATIVE) 08/16/23 13:00 U Methamphetamines Scrn NEGATIVE (NEGATIVE) 08/16/23 13:00 U Benzodiazepines Scrn NEGATIVE (NEGATIVE) 08/16/23 13:00 Urine Cocaine Screen NEGATIVE (NEGATIVE) 08/16/23 13:00 U Cannabinoids Screen POSITIVE (NEGATIVE) H 08/16/23 13:00 Ur Drug Screen Comment CUTOFF CONC BELOW: 08/16/23 13:00 - Procedures Procedures: Procedures CARPAL TUNNEL RELEASE (02/20/14) CATARAC PHACOEMULS/ASPIR (01/15/14) INSERT LENS AT CATAR EXT (01/15/14) RELEASE MEDIAN NERVE, OPEN APPROACH (10/19/17) REPLACEMENT OF R HIP JT WITH METAL ON POLY, OPEN APPROACH (07/18/17)
--- NOTE | 2023-08-17 14:03 | PROVIDER PROGRESS NOTE ---
Assessment/Plan - Problem List (1) UTI (urinary tract infection) Assessment/Plan: --Suprapubic catheter was exchanged in the ED on 08/15. Initially placed by Adwoa Driver in October 2019. --Started on IV ceftriaxone daily. --Urine culture showing 2 organisms. Will await final culture before discharge. --Trending WBC. (2) Metabolic encephalopathy Assessment/Plan: --Resolved. His mentation has returned to his baseline. (3) Alcohol abuse Assessment/Plan: --On vitamin supplements. No withdrawal this AM. (4) Chronic pain Qualifiers: Chronic pain type: chronic pain syndrome Qualified Code(s): G89.4 - Chronic pain syndrome (5) Hypertension Qualifiers: Hypertension type: primary hypertension Qualified Code(s): I10 - Essential (primary) hypertension (6) Paraplegia following spinal cord injury Assessment/Plan: --Chronic numbness from nipples down. Chronic forearm and hand numbness. --Evaluated by PT/OT today who stated he is near his baseline. - Current Meds Current Meds: Current Medications Generic Name Dose Route Start Last Admin Trade Name Freq PRN Reason Stop Dose Admin Acetaminophen 650 mg 08/16/23 14:50 08/16/23 20:25 Acetaminophen 325 Mg Tablet PO 650 mg Q4HR PRN Administration Pain 1 to 4, or Fever Enoxaparin Sodium 40 mg 08/17/23 09:00 08/17/23 08:14 Enoxaparin 40 Mg/0.4 Ml Syringe SUBQ 40 mg DAILY MALIA Administration Ceftriaxone Sodium 2 gm/ 100 mls @ 200 mls/hr 08/17/23 09:00 08/17/23 12:45 Sodium Chloride IV Infused DAILY MALIA Infusion Lisinopril 10 mg 08/17/23 09:00 08/17/23 08:14 Lisinopril 5 Mg Tablet PO 10 mg DAILY MALIA Administration Oxycodone HCl 5 mg 08/16/23 14:50 08/16/23 20:18 Oxycodone 5 Mg Tablet PO 5 mg Q4HR PRN Administration Pain 5 to 7 Multivit/Folic Acid/Iron 1 tab 08/16/23 16:00 08/17/23 08:14 Vitamin Tablet PO 1 tab DAILYWM MALIA Administration Sodium Chloride 10 ml 08/16/23 17:00 08/17/23 08:15 Sodium Chloride Flush 0.9% 10 Ml Syringe IVP 10 ml 0100,0900,1700 MALIA Administration Thiamine HCl 100 mg 08/17/23 09:00 08/17/23 08:14 Thiamine 100 Mg Tablet PO 100 mg DAILY MALIA Administration - Lab Result Fish Bone Diagrams: 08/16/23 13:12 08/16/23 13:32 - Additional Planning My Orders: My Active Orders 08/17/23 CUL, URINE [RM] Routine 08/17/23 09:00 cefTRIAXone [Rocephin] 2 gm Sodium Chloride 0.9% Minibag [Normal Saline 0.9% Minibag] 100 ml IV DAILY 08/17/23 12:03 HYDROcodone/ACET 7.5/325 [[place] 7.5/325] 1 tab PO BID PRN 08/17/23 13:00 Citalopram Hydrobromide [Celexa] 40 mg PO DAILY carBAMazepine [TEGretol] 200 mg PO DAILY 08/17/23 14:00 Gabapentin [Neurontin] 400 mg PO TID 08/17/23 21:00 carBAMazepine [TEGretol] 300 mg PO QPM traZODone [Desyrel] 300 mg PO QPM 08/18/23 05:00 BMP - BASIC METABOLIC PANEL [CHEM] DAILYLAB CBC [CBC - COMP BLD CT W/AUTO DIFF] [HEME] DAILYLAB 08/18/23 07:00 Pantoprazole [Protonix] 40 mg PO QDAC 08/19/23 05:00 BMP - BASIC METABOLIC PANEL [CHEM] DAILYLAB CBC [CBC - COMP BLD CT W/AUTO DIFF] [HEME] DAILYLAB 08/20/23 05:00 BMP - BASIC METABOLIC PANEL [CHEM] DAILYLAB CBC [CBC - COMP BLD CT W/AUTO DIFF] [HEME] DAILYLAB 08/21/23 05:00 BMP - BASIC METABOLIC PANEL [CHEM] DAILYLAB CBC [CBC - COMP BLD CT W/AUTO DIFF] [HEME] DAILYLAB 08/22/23 05:00 BMP - BASIC METABOLIC PANEL [CHEM] DAILYLAB CBC [CBC - COMP BLD CT W/AUTO DIFF] [HEME] DAILYLAB Subjective - Subjective Patient Reports: Feeling Better, Resting Comfortably, No Complaints Objective Vital Signs: Vital Signs - 24 hr 08/16/23 08/16/23 08/16/23 15:29 15:50 19:08 Temperature 37.2 C 38.5 C H Heart Rate 79 Heart Rate [ 77 Brachial] Heart Rate [ Sitting] Heart Rate [ Supine] Respiratory 17 17 18 Rate Blood Pressure 157/81 H Blood Pressure 137/75 H [Right Brachial artery] Blood Pressure [Sitting] Blood Pressure [Supine] O2 Saturation 96 92 08/16/23 08/16/23 08/16/23 20:22 20:55 21:27 Temperature 38.0 C H 37.0 C 37.0 C Heart Rate Heart Rate [ Brachial] Heart Rate [ Sitting] Heart Rate [ Supine] Respiratory Rate Blood Pressure Blood Pressure [Right Brachial artery] Blood Pressure [Sitting] Blood Pressure [Supine] O2 Saturation 08/17/23 08/17/23 08/17/23 00:05 04:21 07:34 Temperature 37.2 C 37.4 C 37.1 C Heart Rate Heart Rate [ 74 79 69 Brachial] Heart Rate [ Sitting] Heart Rate [ Supine] Respiratory 18 18 16 Rate Blood Pressure Blood Pressure 106/72 149/86 H 107/78 [Right Brachial artery] Blood Pressure [Sitting] Blood Pressure [Supine] O2 Saturation 93 93 95 08/17/23 09:00 Temperature Heart Rate Heart Rate [ Brachial] Heart Rate [ 76 Sitting] Heart Rate [ 72 Supine] Respiratory Rate Blood Pressure Blood Pressure [Right Brachial artery] Blood Pressure 163/93 H [Sitting] Blood Pressure 136/72 H [Supine] O2 Saturation Oxygen O2 Source Room air I&O (Last 24 Hrs): Intake and Output Totals x24h 08/15/23 08/16/23 08/17/23 23:59 23:59 23:59 Intake Total 1780 2940 Output Total 650 1375 Balance 1130 1565 General: Alert, Oriented x3 Neuro: Alert Cardiovascular: Regular rate, Normal S1, Normal S2 Respiratory: Chest non-tender, Breath sounds nml Abdomen: Normal bowel sounds, Soft - Results Results: Laboratory Results WBC 16.3 x10^3/uL (4.8-10.8) H 08/16/23 13:12 RBC 4.25 10^6/uL (4.70-6.10) L 08/16/23 13:12 Hgb 14.0 g/dL (14.0-18.0) 08/16/23 13:12 Hct 41.4 % (42.0-52.0) L 08/16/23 13:12 MCV 97.4 fL (80.0-94.0) H 08/16/23 13:12 MCH 32.9 pg (27.0-31.0) H 08/16/23 13:12 MCHC 33.8 g/dL (32.0-36.0) 08/16/23 13:12 RDW 13.4 % (12.0-15.0) 08/16/23 13:12 Plt Count 205 10^3/uL (130-450) 08/16/23 13:12 MPV 7.9 fL (7.4-11.4) 08/16/23 13:12 Neut # (Auto) 14.0 10^3/uL (1.5-6.6) H 08/16/23 13:12 Lymph # (Auto) 1.1 10^3/uL (1.5-3.5) L 08/16/23 13:12 [place] # (Auto) 1.0 10^3/uL (0.0-1.0) 08/16/23 13:12 Eos # (Auto) 0.0 10^3/uL (0.0-0.7) 08/16/23 13:12 Baso # (Auto) 0.0 10^3/uL (0.0-0.1) 08/16/23 13:12 Absolute Nucleated RBC 0.00 x10^3/uL 08/16/23 13:12 Nucleated RBC % 0.0 /100WBC 08/16/23 13:12 Sodium 129 mmol/L (135-145) L 08/16/23 13:32 Potassium 4.0 mmol/L (3.5-4.5) 08/16/23 13:32 Chloride 98 mmol/L (101-111) L 08/16/23 13:32 Carbon Dioxide 25 mmol/L (21-32) 08/16/23 13:32 Anion Gap 6.0 (6-13) 08/16/23 13:32 BUN 9 mg/dL (6-20) 08/16/23 13:32 Creatinine 0.7 mg/dL (0.6-1.3) 08/16/23 13:32 Estimated GFR (MDRD) 110 (>89) 08/16/23 13:32 Glucose 140 mg/dL (74-104) H 08/16/23 13:32 Lactic Acid 1.9 mmol/L (0.5-2.2) 08/16/23 14:05 Calcium 9.1 mg/dL (8.5-10.3) 08/16/23 13:32 Total Bilirubin 0.7 mg/dL (0.2-1.0) 08/16/23 13:32 AST 17 IU/L (10-42) 08/16/23 13:32 ALT 27 IU/L (10-60) 08/16/23 13:32 Alkaline Phosphatase 46 IU/L (42-121) 08/16/23 13:32 Total Protein 6.4 g/dL (6.4-8.9) 08/16/23 13:32 Albumin 4.0 g/dL (3.2-5.5) 08/16/23 13:32 Globulin 2.4 g/dL (2.1-4.2) 08/16/23 13:32 Albumin/Globulin Ratio 1.7 (1.0-2.2) 08/16/23 13:32 Lipase 10 U/L (11-82) L 08/16/23 13:32 Urine Color YELLOW 08/16/23 13:50 Urine Clarity HAZY (CLEAR) 08/16/23 13:50 Urine pH 7.0 PH (5.0-7.5) 08/16/23 13:50 Ur Specific [place] 1.020 (1.002-1.030) 08/16/23 13:50 Urine Protein 100 mg/dL (NEGATIVE) H 08/16/23 13:50 Urine Glucose (UA) NEGATIVE mg/dL (NEGATIVE) 08/16/23 13:50 Urine Ketones NEGATIVE mg/dL (NEGATIVE) 08/16/23 13:50 Urine Occult Blood MODERATE (NEGATIVE) H 08/16/23 13:50 Urine Nitrite NEGATIVE (NEGATIVE) 08/16/23 13:50 Urine Bilirubin NEGATIVE (NEGATIVE) 08/16/23 13:50 Urine Urobilinogen 0.2 (NORMAL) E.U./dL (NORMAL) 08/16/23 13:50 Ur Leukocyte Esterase MODERATE (NEGATIVE) H 08/16/23 13:50 Urine RBC 0-5 /HPF (0-5) 08/16/23 13:50 Urine WBC >25 /HPF (0-3) H 08/16/23 13:50 Ur Squamous Epith Cells NONE SEEN (<= Few) 08/16/23 13:50 Urine Bacteria Moderate /HPF (None Seen) H 08/16/23 13:50 Ur Microscopic Review INDICATED 08/16/23 13:50 Urine Culture Comments INDICATED 08/16/23 13:50 Nasal Adenovirus (PCR) NOT DETECTED 08/16/23 13:10 Nasal B. parapertussis DNA (PCR) NOT DETECTED 08/16/23 13:10 Nasal Coronavir 229E PCR NOT DETECTED 08/16/23 13:10 Nasal Coronavir HKU1 PCR NOT DETECTED 08/16/23 13:10 Nasal Coronavir NL63 PCR NOT DETECTED 08/16/23 13:10 Nasal Coronavir OC43 PCR NOT DETECTED 08/16/23 13:10 Nasal Enterovir/Rhinovir PCR NOT DETECTED 08/16/23 13:10 Nasal Influenza B PCR NOT DETECTED 08/16/23 13:10 Nasal Influenza A PCR NOT DETECTED 08/16/23 13:10 Nasal Parainfluen 1 PCR NOT DETECTED 08/16/23 13:10 Nasal Parainfluen 2 PCR NOT DETECTED 08/16/23 13:10 Nasal Parainfluen 3 PCR NOT DETECTED 08/16/23 13:10 Nasal Parainfluen 4 PCR NOT DETECTED 08/16/23 13:10 Nasal RSV (PCR) NOT DETECTED 08/16/23 13:10 Nasal B.pertussis DNA PCR NOT DETECTED 08/16/23 13:10 Nasal C.pneumoniae (PCR) NOT DETECTED 08/16/23 13:10 Don Human Metapneumo PCR NOT DETECTED 08/16/23 13:10 Nasal M.pneumoniae (PCR) NOT DETECTED 08/16/23 13:10 Nasal SARS-CoV-2 (PCR) NOT DETECTED 08/16/23 13:10 Urine Opiates Screen POSITIVE (NEGATIVE) H 08/16/23 13:00 Ur Buprenorphine Scrn NEGATIVE (NEGATIVE) 08/16/23 13:00 Ur Oxycodone Screen NEGATIVE (NEGATIVE) 08/16/23 13:00 Urine Methadone Screen NEGATIVE (NEGATIVE) 08/16/23 13:00 Ur Barbiturates Screen NEGATIVE (NEGATIVE) 08/16/23 13:00 Ur Tricyclics Screen NEGATIVE (NEGATIVE) 08/16/23 13:00 Ur Phencyclidine Scrn NEGATIVE (NEGATIVE) 08/16/23 13:00 Ur Amphetamine Screen NEGATIVE (NEGATIVE) 08/16/23 13:00 U Methamphetamines Scrn NEGATIVE (NEGATIVE) 08/16/23 13:00 U Benzodiazepines Scrn NEGATIVE (NEGATIVE) 08/16/23 13:00 Urine Cocaine Screen NEGATIVE (NEGATIVE) 08/16/23 13:00 U Cannabinoids Screen POSITIVE (NEGATIVE) H 08/16/23 13:00 Ur Drug Screen Comment CUTOFF CONC BELOW: 08/16/23 13:00 - Procedures Procedures: Procedures CARPAL TUNNEL RELEASE (02/20/14) CATARAC PHACOEMULS/ASPIR (01/15/14) INSERT LENS AT CATAR EXT (01/15/14) RELEASE MEDIAN NERVE, OPEN APPROACH (10/19/17) REPLACEMENT OF R HIP JT WITH METAL ON POLY, OPEN APPROACH (07/18/17)
[2023-08-17] MEDS: CITALOPRAM HYDROBROMIDE 20 MG TABLET PO SCH (14:10)
[2023-08-17] MEDS: carBAMazepine 200 MG TABLET PO SCH ×2 (14:10→21:04)
[2023-08-17] MEDS: GABAPENTIN 100 MG CAPSULE PO SCH (14:10)
[2023-08-17] MEDS: DOCUSATE SODIUM 250 MG CAPSULE PO SCH (14:49)
[2023-08-17] MEDS: polyethylene glycoL 3350 17 GM PACKET PO SCH (14:49)
[2023-08-17] MEDS: SENNA 8.6 MG TABLET PO SCH (14:50)
[2023-08-17] MEDS: IPRATROPIUM/ALBUTEROL 3 ML NEB INH PRN (18:09)
--- NOTE | 2023-08-17 18:36 | XRAY Report ---
PROCEDURE: Chest 1V INDICATIONS: Wheezing. TECHNIQUE: One view of the chest was acquired. COMPARISON: None. FINDINGS: Surgical changes and devices: None. Lungs and pleura: No pleural effusions or pneumothorax. Lungs are clear. Mediastinum: Mediastinal contours appear normal. Heart size is normal. Bones and chest wall: No suspicious bony lesions. Overlying soft tissues appear unremarkable. IMPRESSION: No acute cardiopulmonary process. Reviewed by: Jesús Zuluaga MD on 08/17/2023 6:35 PM PDT Approved by: Jesús Zuluaga MD on 08/17/2023 6:35 PM PDT Station ID: [id number]
[2023-08-17] MEDS ORDERED: traZODone 50 MG TABLET PO SCH (21:00)
[2023-08-17] MEDS ORDERED: GABAPENTIN 400 MG CAPSULE PO SCH (21:00)
[2023-08-17] MEDS: traZODone 50 MG TABLET PO SCH (21:05)
[2023-08-18 05:25] LABS: BASOPHILS % (AUTO) 0.3 %; EOSINOPHILS # (AUTO) 0.1 10^3/uL (0.0-0.7); EOSINOPHILS % (AUTO) 1.3 %; HCT - HEMATOCRIT 37.6 % (42.0-52.0); HGB - HEMOGLOBIN 12.9 g/dL (14.0-18.0); LYMPHOCYTES # (AUTO) 1.1 10^3/uL (1.5-3.5); LYMPHOCYTES % (AUTO) 11.4 %; MEAN CORPUSCULAR HEMOGLOBIN 33.2 pg (27.0-31.0); MEAN CORPUSCULAR HGB CONC 34.3 g/dL (32.0-36.0); MEAN CORPUSCULAR VOLUME 96.7 fL (80.0-94.0); MEAN PLATELET VOLUME 8.1 fL (7.4-11.4); MONOCYTES % (AUTO) 9.5 %; NEUTROPHILS # (AUTO) 7.7 10^3/uL (1.5-6.6); NEUTROPHILS % (AUTO) 77.1 %; PLT - PLATELET COUNT 173 10^3/uL (130-450); RED BLOOD COUNT 3.89 10^6/uL (4.70-6.10); RED CELL DISTRIBUTION WIDTH 13.2 % (12.0-15.0)
[2023-08-18 05:47] LABS: CALCIUM 8.8 mg/dL (8.5-10.3); CREATININE 0.5 mg/dL (0.6-1.3)
[2023-08-18] MEDS: PANTOPRAZOLE 40 MG TABLET PO SCH (06:16)
[2023-08-18] MEDS ORDERED: NON FORMULARY MED (Omeprazole [Omeprazole] 20 MG Capsule.Dr) PO SCH (07:00)
--- NOTE | 2023-08-18 07:43 | Discharge Plan ---
Discharge Plan Problem Reviewed?: Yes Disposition: Home, Self Care Condition: Good Prescriptions: Ciprofloxacin HCl 1 tablet PO BID 14 Days #28 tablet No Smoking: If you smoke, Please STOP! Call for help.
[2023-08-18 10:19] VITALS: BP 159/86; O2SAT 92
[2023-08-18] MEDS ORDERED: ZINC OXIDE 20% OINT 30 GM TUBE TOP PRN (10:55)
--- NOTE | 2023-08-18 11:06 | DISCHARGE SUMMARY ---
Discharge Summary Admit Date: 08/16/23 Discharge Date: 08/18/23 Discharging Provider: Chel Guerra Primary Care Provider: Isaías Ricardo Code Status: Do Not Attempt Resuscitation Condition at Discharge: Good Discharge Disposition: 01 Home, Self Care - DIAGNOSES Discharge Diagnoses with Status of Each Condition: (1) UTI (urinary tract infection) Assessment/Plan: --On PO ciprofloxacin 500 mg BID for 14 total days. (2) Metabolic encephalopathy Assessment/Plan: --Resolved. His mentation has returned to his baseline. - HPI History of Present Illness: Is a 77-year-old male who lives in his own home. Current primary care provider is LAURE Sevilla at the [facility]. He is disabled because of a history of transverse myelitis in 2019 operated on @ a facility in [facility] and has a chronic indwelling suprapubic catheter. He spent 3 weeks in inpatient rehab after that stay. He then stated his brother's house in [place] and an assisted living facility here ([facility]) and then went to his [facility] . He was home with his by September 2019. He sees a neurologist Pavel Connell MD at the [facility]. He has frequent recurrent UTIs. His asked EMS to bring him in today because he is having increasing generalized weakness, and a change in the color of his urine and it was becoming more and more cloudy. Also starting to change the weight smelled and was becoming more m ore malodorous. At home she described a temperature of 102. He is usually someone that is at least able to transfer. While his mobility may be limited, he is able to sit up and then transfer on a board to his wheelchair. A caregiver comes in 2 days a week to bath him. Again transfer with a board. He can feed himself but has to help dress him. Usually gets around with a wheelchair adn he is able to self propel. He can no longer stand. He is able to reposition himself in bed. Sometimes needs help to roll over in bed. This morning he is so weak that she could not even get him to sit up. She did not give him anything for the fever. There is no cough, chest congestions, sore throat, runny nose. No abdominal pain. The emergency room he is afebrile at 37.4. Heart rate is 85. Blood pressure is 151/78. Respirations 17 and he is 93% on room air. He is awake, answering all questions, respiratory effort is even and unlabored. His may describe him as altered, but the emergency room doctor is describing alert and oriented x 3. He has moist mucosal membranes. Regular rate and rhythm. Is not in any respiratory distress. A benign abdominal exam. The emergency room doctor changed out his suprapubic catheter and checked a UA using the new bag. Sodium is 129. He is chronically hyponatremic since approximately 2020. BUN and creatinine are normal. Lactic acid is 1.9. White cell count is elevated at 16.3. In November he was 5.5. With previous admissions and 2017 through 2021 his white cell count was actually below 5000. Urinalysis before the new bag had leukocyte Estrace, red cells, white cells, bacteria and no squamous epithelial cells. Urinalysis after the change in the suprapubic catheter continues to have leukocyte Estrace, white cells and moderate bacteria. Moderate occult blood. No nitrates. Culture is indicated and will be done. Dr. Rodas, the emergency room provider, and I discussed the case. From a Milliman criteria perspective he has an elevated white cell count but otherwise normal vital signs. feels that he is altered, but ER provider describes alert and oriented x 3. Since this gentleman gets frequent UTIs, I will be p lacing him in observation and treating a possible urinary tract infection overnight. If his sensorium clears by tomorrow morning I plan on discharging him. - HOSPITAL COURSE Hospital Course: Patient is a 77-year-old male who presented to the ED with his due to concerns for altered mental status and encephalopathy. As he had a suprapubic c ath, there was concern for urinary tract infection and an exchange of his catheter was performed in the ED on 08/15. Urinalysis and urine culture was obtained and he was started on IV antibiotics with ceftriaxone and admitted to the hospital. Patient's mental status cleared within a day. Urine culture grew Klebsiella, E. coli, and Pseudomonas. He was transition to ciprofloxacin 500 mg twice daily which coverd all 3 bacteria per sensitivities for a total of 14 days given the complicated nature of his infection. Patient was subsequently discharged home on oral ciprofloxacin. - ALLERGIES Allergies/Adverse Reactions: Allergies Allergy/AdvReac Type Severity Reaction Status Date / Time No Known Drug Allergies Allergy Verified 08/16/23 12:55 - MEDICATIONS Home Medications: Ambulatory Orders Medication Instructions Recorded Confirmed Omeprazole 20 mg PO QDAC 01/14/14 08/17/23 Citalopram Hydrobromide [Celexa] 40 mg PO DAILY 07/17/17 08/17/23 Trazodone HCl 300 mg PO QPM 07/17/17 08/17/23 Gabapentin [Neurontin] 400 mg PO TID 07/30/21 08/17/23 HYDROcodone/ACET 7.5/325 [[place] 1 tab PO BID PRN 08/16/23 08/17/23 7.5/325] Losartan Potassium 25 mg PO DAILY 08/16/23 08/17/23 carBAMazepine [TEGretol] 200 mg PO QDAC 08/17/23 08/17/23 carBAMazepine [TEGretol] 300 mg PO QPM 08/17/23 08/17/23 Ciprofloxacin HCl 1 tablet PO BID 14 Days #28 tablet 08/18/23 - PHYSICAL EXAM AT DISCHARGE General Appearance: positive: No acute distress, Alert Respiratory: positive: Breath sounds nml Cardiovascular: positive: Regular rate & rhythm Abdomen: positive: Non-tender, No distention Neurologic/Psychiatric: positive: Oriented x3, CN's nml (2-12) - LABS Result Diagrams: 08/18/23 05:17 08/18/23 05:17
== END 2023-08-18 12:09 | disposition home or self-care (01) | DRG 689 ==
LOC: EDUNIT# → SUPCPDRO 12:47 → ED 12:47 → MS2 14:50 → OBSVTOIN 08-17 10:15
PROVIDERS: ADMIT Specialist; ATTEND Family Medicine
DX: N39.0 Urinary tract infection, site not specified (principal); G93.41 Metabolic encephalopathy; E87.1 Hypo-osmolality and hyponatremia; G82.20 Paraplegia, unspecified; Z87.440 Personal history of urinary (tract) infections; B96.1 Klebsiella pneumoniae [K. pneumoniae] as the cause of diseases classified elsewhere; B96.20 Unspecified Escherichia coli [E. coli] as the cause of diseases classified elsewhere; B96.5 Pseudomonas (aeruginosa) (mallei) (pseudomallei) as the cause of diseases classified elsewhere; Z66 Do not resuscitate; E78.00 Pure hypercholesterolemia, unspecified; N40.0 Benign prostatic hyperplasia without lower urinary tract symptoms; Z87.891 Personal history of nicotine dependence; G89.29 Other chronic pain; F10.10 Alcohol abuse, uncomplicated; R53.1 Weakness; I10 Essential (primary) hypertension; J45.909 Unspecified asthma, uncomplicated; Z99.3 Dependence on wheelchair; E66.9 Obesity, unspecified; Z68.38 Body mass index [BMI] 38.0-38.9, adult; G89.4 Chronic pain syndrome; Z96.0 Presence of urogenital implants; Z86.69 Personal history of other diseases of the nervous system and sense organs; N40.1 Benign prostatic hyperplasia with lower urinary tract symptoms; R33.8 Other retention of urine; R35.0 Frequency of micturition
CPT/HCPCS: 36415; 71045; 80048; 80053; 80306; 81001; 83605; 83690; 85025; 87040; 87077; 87086; 87181; 87633; 94640; 96365; 96372; 96376; 97162; 97166; 99285; A9270; G0378; J1650; J8499; 81003

== ENCOUNTER 2024-01-05 16:38 | Emergency (ER) | payer MEDICARE, OTHER ==
[2024-01-05 16:54] VITALS: O2SAT 96
[2024-01-05 17:58] LABS: BASOPHILS % (AUTO) 0.2 %; EOSINOPHILS # (AUTO) 0.1 10^3/uL (0.0-0.7); EOSINOPHILS % (AUTO) 0.7 %; HCT - HEMATOCRIT 40.1 % (42.0-52.0); HGB - HEMOGLOBIN 13.7 g/dL (14.0-18.0); LYMPHOCYTES # (AUTO) 1.7 10^3/uL (1.5-3.5); LYMPHOCYTES % (AUTO) 12.4 %; MEAN CORPUSCULAR HEMOGLOBIN 32.9 pg (27.0-31.0); MEAN CORPUSCULAR HGB CONC 34.2 g/dL (32.0-36.0); MEAN CORPUSCULAR VOLUME 96.4 fL (80.0-94.0); MEAN PLATELET VOLUME 7.8 fL (7.4-11.4); MONOCYTES # (AUTO) 1.4 10^3/uL (0.0-1.0); MONOCYTES % (AUTO) 10.1 %; NEUTROPHILS # (AUTO) 10.2 10^3/uL (1.5-6.6); NEUTROPHILS % (AUTO) 76.2 %; PLT - PLATELET COUNT 224 10^3/uL (130-450); RED BLOOD COUNT 4.16 10^6/uL (4.70-6.10); RED CELL DISTRIBUTION WIDTH 13.8 % (12.0-15.0); WHITE BLOOD COUNT 13.4 x10^3/uL (4.8-10.8)
[2024-01-05 18:06] LABS: ALBUMIN 4.1 g/dL (3.2-5.5); ALBUMIN/GLOBULIN RATIO 1.4 (1.0-2.2); BILIRUBIN,TOTAL 0.6 mg/dL (0.2-1.0); CALCIUM 9.2 mg/dL (8.5-10.3); CREATININE 0.6 mg/dL (0.6-1.3); TOTAL PROTEIN 7.1 g/dL (6.4-8.9)
--- NOTE | 2024-01-05 18:50 | ED Physician Documentation ---
History of Present Illness - Stated complaint Stated Complaint: - Chief complaint Chief Complaint: UTI - Additonal information Additional information: Patient is a 78-year-old male presenting to the emergency department with UTI symptoms of chills foul-smelling urine and discoloration of urine. He notes his symptoms started about 2 days ago and have progressively gotten worse. Patient has no documented temperature at home. notes his suprapubic catheter was exchanged about 1 week ago. This was done as it was time for suprapubic catheter exchange. Patient's last UTI was less than 3 months ago and states he was admitted for this for about a week. At the time he had a temperature of 103 on arrival. Patient was also having confusion symptoms at that time. Patient is not having similar symptoms today. He does note some mild abdominal pain associated with his symptoms. PD PAST MEDICAL HISTORY - Past Medical History Past Medical History: Yes Cardiovascular: Hypertension, High cholesterol Respiratory: Asthma Neuro: Other Endocrine/Autoimmune: None GI: GERD, Colon polyps : Benign prostate hypertrophy, Retention, Frequency, Other HEENT: Dental implants Psych: Claustrophobia Musculoskeletal: Osteoarthritis, Rheumatoid arthritis, Chronic back pain, Other Derm: Other - Past Surgical History Past Surgical History: Yes General: Colonoscopy Ortho: Hip replacement, Knee replacement, Shoulder arthroplasty, Arthroscopic surgery, Spine surgery, Other HEENT: Cataracts - Present Medications Home Medications: Ambulatory Orders Medication Instructions Recorded Confirmed Omeprazole 20 mg PO QDAC 01/14/14 08/17/23 Citalopram Hydrobromide [Celexa] 40 mg PO DAILY 07/17/17 08/17/23 Trazodone HCl 300 mg PO QPM 07/17/17 08/17/23 Gabapentin [Neurontin] 400 mg PO TID 07/30/21 08/17/23 HYDROcodone/ACET 7.5/325 [[place] 1 tab PO BID PRN 08/16/23 08/17/23 7.5/325] Losartan Potassium 25 mg PO DAILY 08/16/23 08/17/23 carBAMazepine [TEGretol] 200 mg PO QDAC 08/17/23 08/17/23 carBAMazepine [TEGretol] 300 mg PO QPM 08/17/23 08/17/23 Ciprofloxacin HCl 1 tablet PO BID 14 Days #28 tablet 08/18/23 Cefuroxime Axetil [Cefuroxime] 500 mg PO BID 7 Days #14 tablet 01/05/24 - Allergies Allergies/Adverse Reactions: Allergies Allergy/AdvReac Type Severity Reaction Status Date / Time No Known Drug Allergies Allergy Verified 01/05/24 16:49 - Social History Does the pt smoke?: No Smoking Status: Never smoker Does the pt drink ETOH?: No Does the pt have substance abuse?: No - Immunizations Immunizations are current?: Yes - POLST Patient has POLST: No Results - Vitals Vitals: Oxygen O2 Source Room air - Labs Labs: Microbiology 01/05/24 19:01 Urine Culture - Preliminary Urine,Random Pseudomonas Aeruginosa Laboratory Tests 01/05/24 01/05/24 01/05/24 17:46 17:46 19:01 WBC 13.4 H RBC 4.16 L Hgb 13.7 L Hct 40.1 L MCV 96.4 H MCH 32.9 H MCHC 34.2 RDW 13.8 Plt Count 224 MPV 7.8 Neut # (Auto) 10.2 H Lymph # (Auto) 1.7 [place] # (Auto) 1.4 H Eos # (Auto) 0.1 Baso # (Auto) 0.0 Absolute Nucleated RBC 0.00 Nucleated RBC % 0.0 Sodium 126 L Potassium 4.0 Chloride 93 L Carbon Dioxide 27 Anion Gap 6.0 BUN 7 Creatinine 0.6 Estimated GFR (MDRD) 131 Glucose 117 H Calcium 9.2 Total Bilirubin 0.6 AST 23 ALT 40 Alkaline Phosphatase 52 Total Protein 7.1 Albumin 4.1 Globulin 3.0 Albumin/Globulin Ratio 1.4 Lipase 13 Urine Color YELLOW Urine Clarity HAZY Urine pH 7.0 Ur Specific [place] 1.010 Urine Protein TRACE Urine Glucose (UA) NEGATIVE Urine Ketones NEGATIVE Urine Occult Blood LARGE H Urine Nitrite POSITIVE H Urine Bilirubin NEGATIVE Urine Urobilinogen 0.2 (NORMAL) Ur Leukocyte Esterase LARGE H Urine RBC TNTC H Urine WBC >25 H Urine WBC Clumps PRESENT Ur Squamous Epith Cells RARE Squamous Amorphous Sediment Few Urine Bacteria Many H Ur Microscopic Review INDICATED Urine Culture Comments INDICATED PD Medical Decision Making - ED course ED course: Patient is a 78-year-old male with history of demyelinating disease with history of loss of sensation nipple line and below he is wheelchair-bound and suprapubic catheter placed for neurogenic bladder. has concerns for UTI today as patient had discoloration to urine. Suprapubic catheter was replaced about a week ago. Patient has had it exchanged multiple times before with no complications. This was a regular follow-up for patient. Urine analysis does show signs of UTI will start patient on antibiotics pending cultures. Labs are reassuring no significant SILVIA no significant electrolyte abnormality. However patient did report left pelvic pain which is new for him compared to previous UTIs in the past. Will obtain CT scan of abdomen to evaluate for possible kidney stone versus pyelonephritis. CT scan did show small amount of paracolic fluid on the left side. Patient's abdomen on reevaluation is soft no rebound or guarding. I did discuss case with Dr. Cano from general surgery who notes given patient has no significant tenderness abdomen soft without rebound or guarding. Acute cause for infection at this time patient fluid in abdomen unlikely to be of any significance. She return with any worsening left lower quadrant pain any fevers any worsening abdominal pain nausea or vomiting. Patient conveyed these findings and is agreeable with this plan. Patient will chart picker antibiotic in outpatient setting we will start with IV antibiotics here in the emergency department. Departure - Departure Disposition: 01 Home, Self Care Clinical Impression: UTI (urinary tract infection), Chronic indwelling Handy catheter, Hyponatremia Condition: Good Instructions: ED Infec Bladder Cystitis Male Ch Prescriptions: Cefuroxime Axetil [Cefuroxime] 500 mg PO BID 7 Days #14 tablet Comments: You were seen here in the emergency department for your UTI symptoms your workup here showed normal CT scan no signs of kidney stones. Your suprapubic catheter appears to be a good place and is draining well. I have evaluated your urine sample does show signs of UTI or pending cultures at this time but will start you on antibiotics for treatment of UTI here in the emergency department. Please take as prescribed return to the emergency department with any worsening pain fevers nausea vomiting or any other new or worsening symptoms. Discharge Date/Time: 01/05/24 22:18
[2024-01-05 19:07] LABS: BILIRUBIN,URINE NEGATIVE (NEGATIVE); GLUCOSE, URINE (UA) NEGATIVE (NEGATIVE); KETONES,URINE (UA) NEGATIVE (NEGATIVE); LEUKOCYTE ESTERASE, URINE LARGE (NEGATIVE); NITRITE,URINE POSITIVE (NEGATIVE); OCCULT BLOOD,URINE LARGE (NEGATIVE); PROTEIN,URINE TRACE mg/dL (NEGATIVE); UROBILINOGEN,URINE 0.2 (NORMAL) E.U./dL (NORMAL)
[2024-01-05 19:17] LABS: CLARITY,URINE HAZY (CLEAR)
[2024-01-05 19:24] LABS: AMORPHOUS SEDIMENT,UR Few /LPF; BACTERIA,URINE Many /HPF (None Seen); RBC,URINE TNTC /HPF (0-5); SQUAMOUS EPITHELIAL CELL,UR RARE Squamous (<= Few); WBC CLUMPS,URINE PRESENT; WBC,URINE >25 /HPF (0-3)
--- NOTE | 2024-01-05 20:10 | CT Report ---
PROCEDURE: Abdomen/Pelvis WO INDICATIONS: kidney stone evaluation TECHNIQUE: A CT scan of the abdomen and pelvis was performed without the use of intravenous contrast. Images we re recorded and evaluated at appropriate window settings. Reformats: coronal and sagittal. For radiat ion dose reduction, the following was used: automated exposure control, adjustment of mA and/or kV ac cording to patient size. COMPARISON: None. FINDINGS: Image quality: Diagnostic. Lower chest: Unremarkable. Liver: Several hypodensities in the liver which have the appearance of benign cysts. Gallbladder: No radiopaque stones or wall thickening. Biliary tree: No intrahepatic or extrahepatic dilation, accounting for age. Spleen: No splenomegaly. Pancreas: No pancreatic ductal dilation. Adrenals: No adrenal nodule. Kidneys and ureters: No hydronephrosis. No contour-deforming mass. Stomach, bowel and peritoneum: No gastric or small bowel dilation. No abnormal wall thickening. No pn eumoperitoneum. Normal appendix. Diverticulosis. No diverticulitis identified. Trace free fluid in th e left pericolic gutter. Lymph nodes: No central or retroperitoneal adenopathy. Vessels: No infrarenal aortic aneurysm. Reproductive organs: Unremarkable. Bladder: Decompressed with suprapubic catheter. No stone identified. Pelvic lymph nodes: No adenopathy by size criteria. Bones: No aggressive osseous abnormality. Beam hardening artifact from the bilateral hip arthroplasti es. Other: No significant ventral or inguinal hernia. IMPRESSION: 1. No kidney stones. No hydronephrosis. 2. Bladder is decompressed with suprapubic catheter. No bladder stone is identified. 3. Trace free fluid at the left paracolic gutter. No diverticulitis appreciated. Reviewed by: Boy Draper MD on 01/05/2024 8:08 PM PDT Approved by: Boy Draper MD on 01/05/2024 8:08 PM PDT Station ID: [id number]
[2024-01-05 20:17] VITALS: BP 142/76
[2024-01-05] MEDS: SODIUM CHLORIDE 0.9% 1,000 ML IV STA (21:05)
[2024-01-05] MEDS ORDERED: cefTRIAXone 1 GM VIAL ONE (21:29)
[2024-01-05] MEDS: cefTRIAXone 1 GM in SODIUM CHLORIDE 0.9% MINIBAG 100 ML IV STA (21:30)
== END 2024-01-05 22:18 | disposition home or self-care (01) ==
LOC: ED 16:38
DX: N39.0 Urinary tract infection, site not specified (principal); Z96.0 Presence of urogenital implants; G37.9 Demyelinating disease of central nervous system, unspecified; N31.9 Neuromuscular dysfunction of bladder, unspecified; E87.1 Hypo-osmolality and hyponatremia
CPT/HCPCS: 36415; 80053; 81001; 81003; 83690; 85025; 87077; 87086; 87181; 96365; 99283

== ENCOUNTER 2024-02-03 11:26 | Emergency (ER) | payer MEDICARE, OTHER ==
--- NOTE | 2024-02-03 12:03 | ED Physician Documentation ---
History of Present Illness - Stated complaint Stated Complaint: MALE ,MALAISE - Chief complaint Chief Complaint: UTI - Additonal information Additional information: Patient is a 78-year-old male presenting to the emergency department with u rinary symptoms. Patient is well-known to the emergency department. He follows with urology up and [place]. He has history of transverse myelitis which has left him wheelchair-bound with decreased sensation from the nipple line down. Patient has suprapubic catheter in place. Last exchanged 1 week ago by [facility]. According to is exchanged monthly. She notes since yesterday he had dark-colored urine and generalized fatigue. Patient notes no fevers he has been eating and drinking well. He notes he does not have any pain and does not have feelings of a UTI. Patient last UTI was about a month ago he was started on antibiotics and symptoms resolved after a few days. At the time patient had CT scan done as he was reporting left lower quadrant pain which was abnormal for him but no acute findings and patient notes symptoms resolved on their own after taking antibiotics. PD PAST MEDICAL HISTORY - Past Medical History Past Medical History: Yes Cardiovascular: Hypertension, High cholesterol Respiratory: Asthma Neuro: Other Endocrine/Autoimmune: None GI: GERD, Colon polyps : Benign prostate hypertrophy, Retention, Frequency, Other HEENT: Dental implants Psych: Claustrophobia Musculoskeletal: Osteoarthritis, Rheumatoid arthritis, Chronic back pain, Other Derm: Other - Past Surgical History Past Surgical History: Yes General: Colonoscopy Ortho: Hip replacement, Knee replacement, Shoulder arthroplasty, Arthroscopic surgery, Spine surgery, Other HEENT: Cataracts - Present Medications Home Medications: Ambulatory Orders Medication Instructions Recorded Confirmed Omeprazole 20 mg PO QDAC 01/14/14 08/17/23 Citalopram Hydrobromide [Celexa] 40 mg PO DAILY 07/17/17 08/17/23 Trazodone HCl 300 mg PO QPM 07/17/17 08/17/23 Gabapentin [Neurontin] 400 mg PO TID 07/30/21 08/17/23 HYDROcodone/ACET 7.5/325 [[place] 1 tab PO BID PRN 08/16/23 08/17/23 7.5/325] Losartan Potassium 25 mg PO DAILY 08/16/23 08/17/23 carBAMazepine [TEGretol] 200 mg PO QDAC 08/17/23 08/17/23 carBAMazepine [TEGretol] 300 mg PO QPM 08/17/23 08/17/23 Ciprofloxacin HCl 1 tablet PO BID 14 Days #28 tablet 08/18/23 Cefuroxime Axetil [Cefuroxime] 500 mg PO BID 7 Days #14 tablet 01/05/24 Cefuroxime Axetil [Cefuroxime] 500 mg PO BID 7 Days #14 tablet 02/03/24 Ciprofloxacin [Cipro] 500 mg PO Q12H 7 Days #14 tablet 02/03/24 - Allergies Allergies/Adverse Reactions: Allergies Allergy/AdvReac Type Severity Reaction Status Date / Time No Known Drug Allergies Allergy Verified 02/03/24 11:42 - Social History Does the pt smoke?: No Smoking Status: Never smoker Does the pt drink ETOH?: No Does the pt have substance abuse?: No - Immunizations Immunizations are current?: Yes - POLST Patient has POLST: No PD ED PE NORMAL - Vitals Vital signs reviewed: Yes - General General: Alert and oriented X 3 - HEENT HEENT: Atraumatic - Neck Neck: Supple, no meningeal sign - Cardiac Cardiac: RRR, No murmur, No gallop, No rub - Respiratory Respiratory: No respiratory distress, Clear bilaterally - Abdomen Abdomen: Normal bowel sounds, Soft, Non tender, Non distended - Male Male : Other - Derm Derm: Normal color, Warm and dry - Extremities Extremities: No deformity, No tenderness to palpate - Neuro Neuro: Alert and oriented X 3 Eye Opening: Spontaneous Motor: Obeys Commands Verbal: Oriented GCS Score: 15 Results - Vitals Vitals: Vital Signs - 24 hr 02/03/24 11:39 Temperature 36.7 C Heart Rate 69 Respiratory 20 Rate Blood Pressure 135/83 H O2 Saturation 94 Oxygen O2 Source Room air - Labs Labs: Laboratory Tests 02/03/24 12:41 Urine Color YELLOW Urine Clarity SL. CLOUDY Urine pH 8.0 H Ur Specific [place] 1.010 Urine Protein NEGATIVE Urine Glucose (UA) NEGATIVE Urine Ketones NEGATIVE Urine Occult Blood LARGE H Urine Nitrite NEGATIVE Urine Bilirubin NEGATIVE Urine Urobilinogen 0.2 (NORMAL) Ur Leukocyte Esterase LARGE H Urine RBC 0-5 Urine WBC >25 H Ur Squamous Epith Cells NONE SEEN Urine Bacteria Rare Ur Microscopic Review INDICATED Urine Culture Comments INDICATED PD Medical Decision Making - ED course Complexity details: reviewed old records, reviewed results, re-evaluated patient ED course: Patient is a 78-year-old male presenting to the emergency department with suprapubic catheter in place secondary to neurogenic bladder and secondary to transverse myelitis. Patient notes he has been more fatigued and noted darker colored urine with sediment in it yesterday and this morning. She is concerned for a UTI. Patient denies ever having symptoms of a UTI secondary to prior being paraplegic with no sensation below nipple line. Suprapubic cath was exchanged 1 week ago without difficulty. notes last UTI was about a month ago when he was seen here in the ED. Vital stable on arrival. Patient is afebrile nontachycardic. No significant abdominal tenderness. Suprapubic catheter in place without signs of infection surrounding area. Discussed with patient and will exchange suprapubic catheter here in the emergency department. Urine analysis does show UTI with greater than 25 leukocytes. Patient will be started on antibiotics. I reviewed cultures from 01/04 that grew Pseudomonas as well as Enterococcus with some resistance. Ciprofloxacin is sensitive to Pseudomonas and ampicillin is sensitive to Enterococcus. Will start patient on ciprofloxacin and an cefuroxime to cover for complicated UTI given placement of Handy catheter. There is resistance on Enterococcus to ciprofloxacin so a feel it is necessary to start both antibiotics. Return with any worsening pain fevers nausea vomiting difficulty holding antibiotics down or any other new or worsening symptoms. I will call patient on the results of this culture if antibiotics need to be changed. Departure - Departure Disposition: 01 Home, Self Care Clinical Impression: Complicated UTI (urinary tract infection) Condition: Good Instructions: ANTIBIOTIC, Other, ED UTI Cystitis Male Comments: You were seen here in the emergency department for your UTI symptoms your workup. Does show UTI with blood in the urine as well. This is not uncommon especially as we recently exchanged her suprapubic Handy catheter. You should drink lots of fluids when you return home. Follow-up with your urologist in the outpatient setting. Take antibiotics as prescribed as I have sent to to your pharmacy given previous culture did show resistance to some antibiotics and I had to start you on 2 different antibiotics to cover bacteria.
[2024-02-03 12:48] LABS: BILIRUBIN,URINE NEGATIVE (NEGATIVE); GLUCOSE, URINE (UA) NEGATIVE (NEGATIVE); KETONES,URINE (UA) NEGATIVE (NEGATIVE); LEUKOCYTE ESTERASE, URINE LARGE (NEGATIVE); NITRITE,URINE NEGATIVE (NEGATIVE); OCCULT BLOOD,URINE LARGE (NEGATIVE); PROTEIN,URINE NEGATIVE (NEGATIVE); UROBILINOGEN,URINE 0.2 (NORMAL) E.U./dL (NORMAL)
[2024-02-03 12:51] LABS: CLARITY,URINE SL. CLOUDY (CLEAR)
[2024-02-03 13:01] LABS: RBC,URINE 0-5 /HPF (0-5); WBC,URINE >25 /HPF (0-3)
[2024-02-03 13:02] LABS: BACTERIA,URINE Rare /HPF (None Seen); SQUAMOUS EPITHELIAL CELL,UR NONE SEEN (<= Few)
[2024-02-03] MEDS: cefuroxime axetiL 250 MG TABLET PO SCH (13:58)
[2024-02-03] MEDS: CIPROFLOXACIN 250 MG TABLET PO STA (13:59)
[2024-02-03 14:19] VITALS: BP 130/80; O2SAT 96
== END 2024-02-03 14:13 | disposition home or self-care (01) ==
LOC: ED 11:26
DX: N39.0 Urinary tract infection, site not specified (principal); R31.9 Hematuria, unspecified; Z96.0 Presence of urogenital implants
CPT/HCPCS: 51702; 81001; 87086; 99283; 99284; A9270; 81003